=== PATIENT | female | born 1935 | race Hispanic/Latino ===

== ENCOUNTER 2018-03-28 15:53 | Emergency (ER) | payer OTHER ==
[2018-03-28 16:43] LABS: Urine Blood TRACE (NEG); Urine Glucose NEGATIVE (NEG); Urine Protein NEGATIVE (NEG); Urine pH 6.5 (5.0-7.0)
[2018-03-28 16:57] LABS: Absolute Lymphocytes (CBC) 2.4 K/uL (0.7-4.9); Absolute Monocytes 0.8 K/uL (0.1-1.3); Absolute Neutrophil 5.3 K/uL (1.8-8.0); Basophils % 0.7 % (0-1.3); Eosinophils % 2.8 % (0-4.4); Hematocrit 41.4 % (36.0-45.0); Lymphocytes % 27.1 % (15.3-44.8); MCH 27.2 pg (27.0-35.0); MCV 84.1 fL (80-100); MPV 9.3 fL (7.6-11.3); Protime INR 1.03; RBC Red Blood Cell Count 4.92 M/uL (3.86-4.86)
[2018-03-28 17:05] LABS: Albumin 3.5 g/dL (3.4-5.0); Bilirubin Total 0.3 mg/dL (0.2-1.0); Potassium 4.1 mmol/L (3.5-5.1); Protein, Total 7.4 g/dL (6.4-8.2)
[2018-03-28 17:10] LABS: Urine Bacteria <20 /HPF (<20); Urine Culture Reflex Order REFLEXED; Urine RBC <5 /HPF (NONE SEEN)
--- NOTE | 2018-03-28 17:23 | RAD REPORT ---
EXAM DESCRIPTION: CT - Abdomen Pelvis Wo Contrast - 03/28/2018 5:12 pm CLINICAL HISTORY: Abdominal pain, right-sided chest and abdomen pain COMPARISON: CT study February 2017 TECHNIQUE: Axial [address] imaging of the abdomen and pelvis was performed without IV contrast. No IV contrast was given because of allergy, abnormal renal function, patient refusal or physician re quest. No oral contrast given. All CT scans are performed using dose optimization technique as appropriate and may include automated exposure control or mA/KV adjustment according to patient size. FINDINGS: No acute lung parenchymal process seen. No pericardial thickening or effusion. There is no cardiomegaly. The liver, spleen and pancreas show no suspicious findings on non-contrast imaging. Gallbladder is ab sent. No biliary tree dilatation. No hydronephrosis or suspicious renal mass. 10 millimeter and 5 millimeter lower pole calculi seen. N o perinephric stranding. No significant adrenal finding. Isodense renal masses and pyelonephritis can not be excluded in the absence of IV contrast. Mostly contracted urinary bladder shows no suspicious finding. Significant pelvic floor laxity is evident. Moderate hiatal hernia is present similar to prior imaging. Approximately 30% of the stomach is intra thoracic. No acute large or small bowel finding. Diverticulosis is minimal. No free air, free fluid o r inflammatory stranding. No hernia, mass or bulky lymphadenopathy. Disc and bony degenerative changes are present. Moderate right hip degenerative change. Bony changes are similar to the comparison. IMPRESSION: Non-contrast enhanced CT abdomen and pelvis imaging show no acute finding. Nonacute findings detailed in the body of the report similar to February 2017. Full assessment is limited is the absence of IV contrast.
--- NOTE | 2018-03-28 17:31 | ER ---
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 Transition of care: patient was not received from another setting of care. Onset of symptoms was March 28, 2018. Risk Assessment: Do you want to hurt yourself or someone else? Patient reports no desire to harm self or others. Initial Sepsis Screen: Does the patient meet any 2 criteria? No. Patient's initial sepsis screen is negative. Does the patient have a suspected source of infection? No. Patient's initial sepsis screen is negative. Care prior to arrival: None. 15:57 Method Of Arrival: Ambulatory 15:57 Acuity: ERICA 3 hj Triage Assessment: 16:00 General: Appears in no apparent distress. uncomfortable, Behavior is calm, cooperative, hj appropriate for age. Pain: Complains of pain in R rib cage Pain currently is 6 out of 10 on a pain scale. Historical: - Allergies: 15:59 ACETAMINOPHEN; hj 15:59 Lisinopril; hj 15:59 Warfarin; 15:59 Tylenol; hj - Home Meds: 15:59 metoprolol tartrate 25 mg Oral tab 1 tab 2 times per day [Active]; hj - PMHx: 15:59 CHF; Hypertension; hj - PSHx: 15:59 CABG; Hysterectomy; Cholecystectomy; Appendectomy; colon surgery; hj - Immunization history:: Adult Immunizations up to date. - Social history:: Smoking status: Patient/guardian denies using tobacco, Patient/guardian denies using alcohol. - Ebola Screening: : Patient negative for fever greater than or equal to 101.5 degrees Fahrenheit, and additional compatible Ebola Virus Disease symptoms Patient denies exposure to infectious person Patient denies travel to an Ebola-affected area in the 21 days before illness onset. Screenin:00 Abuse screen: Denies threats or abuse. Denies injuries from another. Nutritional hj screening: No deficits noted. Tuberculosis screening: No symptoms or risk factors identified. Fall Risk None identified. Assessment: 16:35 General: Appears uncomfortable, well groomed, well developed, well nourished, Behavior tl3 is calm, cooperative, appropriate for age. Pain: Complains of pain in right mid back and right low back. Neuro: Level of Consciousness is awake, alert, obeys commands, Oriented to person, place, time, situation, Appropriate for age. Cardiovascular: Heart tones S1 S2 present Patient's skin is warm and dry. Respiratory: Airway is patent Respiratory effort is even, unlabored, Respiratory pattern is regular, symmetrical. GI: No signs and/or symptoms were reported involving the gastrointestinal system. : Urine is clear, Reports urinary frequency. EENT: No signs and/or symptoms were reported regarding the EENT system. Derm: No signs and/or symptoms reported regarding the dermatologic system. Musculoskeletal: No signs and/or symptoms reported regarding the musculoskeletal system. 17:48 Reassessment: Patient appears in no apparent distress at this time. No changes from tl3 previously documented assessment. Patient and/or family updated on plan of care and expected duration. Pain level reassessed. Patient is alert, oriented x 3, equal unlabored respirations, skin warm/dry/pink. Vital Signs: 16:01 BP 134 / 122; Pulse 52; Resp 18; Temp 98.7(O); Pulse Ox 97% on R/A; Weight 72.57 kg; hj Height 4 ft. 11 in. (149.86 cm); Pain 6/10; 17:48 BP 168 / 71; Pulse 55; Resp 18; Pulse Ox 98% ; tl3 16:01 Body Mass Index 32.31 (72.57 kg, 149.86 cm) ED Course: 15:56 Patient arrived in ED. mr 15:56 None, None is Private Physician. mr 15:59 Triage completed. hj 16:00 Arm band placed on right wrist. hj 16:00 Patient has correct armband on for positive identification. Placed in gown. Bed in low hj position. Call light in reach. Side rails up X 1. Adult w/ patient. 16:10 Tenzin Loo MD is Attending Physician. ps1 16:13 Madeleine Gill RN is Primary Nurse. tl3 16:35 Initial lab(s) drawn, by me. Missed attempt(s): 20 gauge in right forearm. tl3 16:37 Urine collected: clean catch specimen, clear, Amount Voided: 10mL. tl3 16:[address] vm2 17:10 CT completed. Patient tolerated procedure well. Patient moved back from CT. vm2 17:12 CT Abd/Pelvis - Without Cont In Process Unspecified. EDMS 17:49 No provider procedures requiring assistance completed. Patient did not have IV access tl3 during this emergency room visit. Administered Medications: 16:52 Not Given (no IV): TORadol 30 mg IVP once tl3 Outcome: 17:25 Discharge ordered by MD. ps1 17:49 Discharged to home ambulatory. tl3 17:49 Condition: stable 17:49 Discharge instructions given to patient, family, Instructed on discharge instructions, follow up and referral plans. Demonstrated understanding of instructions, follow-up care, medications. 17:49 Patient left the ED. tl3 Signatures: Dispatcher [employer] EDDC Aniya Buitrago mr Orestes Robles, RN RN Shereen Waldrop 2 Tenzin Loo MD MD ps1 Madeleine Gill RN RN tl3 Corrections: (The following items were deleted from the chart) 16:03 16:01 Pulse 52bpm; Resp 18bpm; Pulse Ox 97% RA; Temp 98.7F Oral; 72.57 kg; Height 4 ft. hj 11 in.; BMI: 32.3; Pain 6/10; hj
--- NOTE | 2018-03-28 17:31 | EDPHYS ---
Physician Documentation [facility] Name: Kassandra Chang Age: 82 yrs Sex: Female : 1935 Arrival Date: 03/28/2018 Time: 15:56 Bed 27 Private MD: None, None ED Physician Tenzin Loo HPI: 03/28 16:18 This 82 yrs old Female presents to ER via Ambulatory with complaints of Flank ps1 pain. 16:18 Onset was this afternoon. She attempted to take a motrin and see if the pain would ps1 remit but it did not and this concerned the patient. She additionally attests to urine symptoms of polyuria. No fever. Is on warfarin. . Historical: - Allergies: 15:59 ACETAMINOPHEN; hj 15:59 Lisinopril; hj 15:59 Warfarin; hj 15:59 Tylenol; hj - Home Meds: 15:59 metoprolol tartrate 25 mg Oral tab 1 tab 2 times per day [Active]; hj - PMHx: 15:59 CHF; Hypertension; hj - PSHx: 15:59 CABG; Hysterectomy; Cholecystectomy; Appendectomy; colon surgery; hj - Immunization history:: Adult Immunizations up to date. - Social history:: Smoking status: Patient/guardian denies using tobacco, Patient/guardian denies using alcohol. - Ebola Screening: : Patient negative for fever greater than or equal to 101.5 degrees Fahrenheit, and additional compatible Ebola Virus Disease symptoms Patient denies exposure to infectious person Patient denies travel to an Ebola-affected area in the 21 days before illness onset. ROS: 16:18 Constitutional: Negative for fever, chills, and weight loss, Eyes: Negative for injury, ps1 pain, redness, and discharge, Cardiovascular: Negative for chest pain, palpitations, and edema, Respiratory: Negative for shortness of breath, cough, wheezing, and pleuritic chest pain, Abdomen/GI: Negative for abdominal pain, nausea, vomiting, diarrhea, and constipation, Back: Negative for injury and pain. 16:18 Neuro: Negative for headache, weakness, numbness, tingling, and seizure, Psych: Negative for depression, anxiety, suicide ideation, homicidal ideation, and hallucinations. 16:18 : Positive for urinary symptoms, flank pain, urinary frequency. Exam: 16:18 Constitutional: This is a well developed, well nourished patient who is awake, alert, ps1 and in no acute distress. Head/Face: Normocephalic, atraumatic. Chest/axilla: Normal chest wall appearance and motion. Nontender with no deformity. No lesions are appreciated. Cardiovascular: Regular rate and rhythm. No gallops, murmurs, or rubs. Normal PMI, no JVD. No pulse deficits. Respiratory: Lungs have equal breath sounds bilaterally, clear to auscultation and percussion. No rales, rhonchi or wheezes noted. No increased work of breathing, no retractions or nasal flaring. Abdomen/GI: Soft, non-tender, with normal bowel sounds. No distension or tympany. No guarding or rebound. No evidence of tenderness throughout. Skin: Warm, dry with normal turgor. Normal color with no rashes, no lesions, and no evidence of cellulitis. MS/ Extremity: Pulses equal, no cyanosis. Neurovascular intact. Full, normal range of motion. Neuro: Awake and alert, GCS 15, oriented to person, place, time, and situation. Cranial nerves II-XII grossly intact. Sensory grossly intact. 16:18 Back: CVA tenderness, that is moderate, is noted on the right. Vital Signs: 16:01 BP 134 / 122; Pulse 52; Resp 18; Temp 98.7(O); Pulse Ox 97% on R/A; Weight 72.57 kg; hj Height 4 ft. 11 in. (149.86 cm); Pain 6/10; 17:48 BP 168 / 71; Pulse 55; Resp 18; Pulse Ox 98% ; tl3 16:01 Body Mass Index 32.31 (72.57 kg, 149.86 cm) MDM: 16:43 Patient medically screened. ps1 17:27 Data reviewed: vital signs, nurses notes, lab test result(s), radiologic studies, CT ps1 scan. Response to treatment: the patient's symptoms have markedly improved after treatment. Special discussion: Based on the patient's Hx, exam, and Dx evaluation, there is no indication for emergent surgery or inpatient Tx. It is understood by the patient/guardian that if the Sx's persist or worsen they need to return immediately for re-evaluation. I discussed with the patient/guardian in detail that at this point there is no indication for admission to the hospital. It is understood, however, that if the symptoms persist or worsen the patient needs to return immediately for re-evaluation. 03/28 16:26 Order name: CBC with Diff; Complete Time: 16:59 ps1 03/28 16:26 Order name: CMP; Complete Time: 17:10 ps1 03/28 16:26 Order name: PT-INR; Complete Time: 16:59 ps1 03/28 16:33 Order name: UA MICROSCOPIC; Complete Time: 17:11 tl3 03/28 16:36 Order name: Urine Dipstick--Ancillary (enter results); Complete Time: 16:45 ag 03/28 17:12 Order name: Urine Culture EDTN 03/28 16:26 Order name: Urine Dipstick-Ancillary (obtain specimen); Complete Time: 16:52 ps1 03/28 16:26 Order name: CT Abd/Pelvis - Without Cont; Complete Time: 17:24 ps1 Administered Medications: 16:52 Not Given (no IV): TORadol 30 mg IVP once tl3 Disposition: 03/28/18 17:25 Discharged to Home. Impression: flank pain, musculoskeletal pain. - Condition is Stable. - Discharge Instructions: Flank Pain. - Medication Reconciliation Form, Thank You Letter, Antibiotic Education, Prescription Opioid Use form. - Follow up: Private Physician; When: As needed; Reason: Recheck today's complaints, Continuance of care, Re-evaluation by your physician. Follow up: Emergency Department; When: As needed; Reason: Fever > 102 F, Trouble breathing, Worsening of condition. - Problem is new. - Symptoms have improved. Signatures: Dispatcher [facility] Orestes Robles RN RN Tenzin Loo MD MD ps1 Madeleine Gill RN RN tl3 Corrections: (The following items were deleted from the chart) 17:49 17:25 03/28/2018 17:25 Discharged to Home. Impression: flank pain; musculoskeletal tl3 pain. Condition is Stable. Forms are Medication Reconciliation Form, Thank You Letter, Antibiotic Education, Prescription Opioid Use. Follow up: Private Physician; When: As needed; Reason: Recheck today's complaints, Continuance of care, Re-evaluation by your physician. Follow up: Emergency Department; When: As needed; Reason: Fever > 102 F, Trouble breathing, Worsening of condition. Problem is new. Symptoms have improved. ps1
== END 2018-03-28 17:49 | disposition home or self-care (01) ==
LOC: ER 15:53
DX: M79.1 Myalgia (principal); I10 Essential (primary) hypertension; Z88.6 Allergy status to analgesic agent; Z88.8 Allergy status to other drugs, medicaments and biological substances; Z95.1 Presence of aortocoronary bypass graft
CPT/HCPCS: 36415; 74176; 80053; 81003; 81015; 85025; 85610; 87086; 87088; 99284

== ENCOUNTER 2019-06-01 14:02 | Emergency (ER) | payer OTHER ==
--- OUTSIDE RECORDS SUMMARY | 2019-06-01 14:03 | XMS REPORT ---
:1935 [facility] Address [address] [place] [address] Dr. Lizama. [address] [place] [id number] Care Team Providers Name Role Phone Unavailable Unavailable Unavailable Problems This patient has no known problems. Allergies, Adverse Reactions, Alerts This patient has no known allergies or adverse reactions. Medications This patient has no known medications.
--- NOTE | 2019-06-01 15:19 | RAD REPORT ---
EXAM DESCRIPTION: CT - Ct Stroke Brain Wo Cont - 06/01/2019 3:10 pm CLINICAL HISTORY: Right arm weakness Headache, CVA symptomology. COMPARISON: CT-STROKE BRAIN W/O CONTRAST dated 01/02/2015 TECHNIQUE: All CT scans are performed using dose optimization technique as appropriate and may inclu de automated exposure control or mA/KV adjustment according to patient size. FINDINGS: No intracranial hemorrhage, hydrocephalus or extra-axial fluid collection.Mild generalized brain atrophy is present with mild periventricular and deep white matter chronic microvascular ische jose roberto changes.No areas of brain edema or evidence of midline shift. The paranasal sinuses and mastoids are clear. The calvarium is intact. IMPRESSION: No acute intracranial abnormality. The findings were discussed with Dr. Guerrier On 06/01/2019 at 3:15 p.m. by telephone.
--- NOTE | 2019-06-01 15:53 | RAD REPORT ---
EXAM DESCRIPTION: MRI - Brain Wo Cont - 06/01/2019 3:36 pm CLINICAL HISTORY: Right arm weakness Headache, CVA symptomology. COMPARISON: Ct Stroke Brain Wo Cont dated 06/01/2019 TECHNIQUE: Multi-sequence, multiplanar MR imaging of the brain was performed without contrast. FINDINGS: No intracranial hemorrhage, hydrocephalus or extra-axial fluid collections.Moderate T2 and FLAIR hyperintensity is seen in the periventricular region. Small area of gliosis is seen in the rig ht occipital pole compatible with old infarct. No edema or shift of midline structures. No findings t o suspect brain mass. DWI is negative for acute CVA. Midline structures are normally formed. Trace mastoid fluid is present, slightly greater on the left IMPRESSION: Negative for acute CVA or other acute intracranial process.
--- NOTE | 2019-06-01 16:08 | RAD REPORT ---
EXAM DESCRIPTION: RAD - Chest Single View - 06/01/2019 4:02 pm CLINICAL HISTORY: Rigth arm weakness Chest pain. COMPARISON: Chest Pa And Lat (2 Views) dated 01/13/2018; Chest Single View dated 02/25/2017; CHEST SING LE VIEW dated 11/03/2014 FINDINGS: Portable technique limits examination quality. The lungs are grossly clear. The heart is upper limit of normal in size. Sternotomy wires present.
[2019-06-01 16:25] LABS: Absolute Lymphocytes (CBC) 1.9 K/uL (0.7-4.9); Basophils % 0.7 % (0-1.3); Hematocrit 44.6 % (36.0-45.0); MPV 8.8 fL (7.6-11.3); RBC Red Blood Cell Count 5.05 M/uL (3.86-4.86)
[2019-06-01 16:26] LABS: Protime INR 1.05
[2019-06-01 16:38] LABS: Potassium 3.9 mmol/L (3.5-5.1)
--- NOTE | 2019-06-01 17:19 | EDPHYS ---
Physician Documentation [facility] Name: Kassandra Chang Age: 83 yrs Sex: Female : 1935 Arrival Date: 06/01/2019 Time: 14:03 Bed 28 Private MD: ED Physician Mike Guerrier HPI: 06/01 15:36 This 83 yrs old Female presents to ER via Wheelchair with complaints of pm1 Weakness Of Arm. 15:36 The patient or guardian complains of weakness, right arm. The complaints affect the pm1 right arm. Context: The problem was sustained at home, resulted from unknown cause. Onset: The symptoms/episode began/occurred this morning, at 09:30. Treatment prior to arrival includes: no previous treatment. Modifying factors: The symptoms are alleviated by nothing. the symptoms are aggravated by nothing. Associated signs and symptoms: The patient has no apparent associated signs or symptoms, Pertinent positives: pain, of the right axilla, Pertinent negatives: decreased range of motion, deformity, fever, numbness, swelling, tingling. Severity of symptoms: in the emergency department the symptoms have improved. The patient has not experienced similar symptoms in the past. Patient with weakness to right arm for 30 minutes starting at 0930 today. Also has pain to right axilla. Weakness to right arm resolved but has continued pain to right axilla. Historical: - Allergies: 14:16 ACETAMINOPHEN; ch 14:16 Lisinopril; ch 14:16 Tylenol; ch 14:16 Warfarin; - Home Meds: 14:16 metoprolol tartrate 25 mg Oral tab 1 tab 2 times per day [Active]; ch - PMHx: 14:16 CHF; Hypertension; Myocardial infarction; ch - PSHx: 14:16 CABG; Hysterectomy; Cholecystectomy; Appendectomy; colon surgery; triple bypass; ch - Immunization history:: Adult Immunizations up to date. - Social history:: Smoking status: Patient/guardian denies using tobacco, Patient/guardian denies using alcohol, street drugs. - Ebola Screening: : Patient negative for fever greater than or equal to 101.5 degrees Fahrenheit, and additional compatible Ebola Virus Disease symptoms Patient denies exposure to infectious person Patient denies travel to an Ebola-affected area in the 21 days before illness onset No symptoms or risks identified at this time. ROS: 15:36 Constitutional: Negative for fever, chills, and weight loss, Eyes: Negative for injury, pm1 pain, redness, and discharge, ENT: Negative for injury, pain, and discharge, Neck: Negative for injury, pain, and swelling, Cardiovascular: Negative for chest pain, palpitations, and edema, Respiratory: Negative for shortness of breath, cough, wheezing, and pleuritic chest pain, Abdomen/GI: Negative for abdominal pain, nausea, vomiting, diarrhea, and constipation, Back: Negative for injury and pain, : Negative for injury, bleeding, discharge, and swelling, Skin: Negative for injury, rash, and discoloration. 15:36 MS/extremity: Positive for pain, of the right axilla, Negative for decreased range of motion, deformity. 15:36 Neuro: Positive for weakness, of the right arm. Exam: 15:36 Constitutional: This is a well developed, well nourished patient who is awake, alert, pm1 and in no acute distress. Head/Face: Normocephalic, atraumatic. Eyes: Pupils equal round and reactive to light, extra-ocular motions intact. Lids and lashes normal. Conjunctiva and sclera are non-icteric and not injected. Cornea within normal limits. Periorbital areas with no swelling, redness, or edema. ENT: Nares patent. No nasal discharge, no septal abnormalities noted. Tympanic membranes are normal and external auditory canals are clear. Oropharynx with no redness, swelling, or masses, exudates, or evidence of obstruction, uvula midline. Mucous membranes moist. Neck: Trachea midline, no thyromegaly or masses palpated, and no cervical lymphadenopathy. Supple, full range of motion without nuchal rigidity, or vertebral point tenderness. No Meningismus. Chest/axilla: Normal chest wall appearance and motion. Nontender with no deformity. No lesions are appreciated. Cardiovascular: Regular rate and rhythm with a normal S1 and S2. No gallops, murmurs, or rubs. Normal PMI, no JVD. No pulse deficits. Respiratory: Lungs have equal breath sounds bilaterally, clear to auscultation and percussion. No rales, rhonchi or wheezes noted. No increased work of breathing, no retractions or nasal flaring. Abdomen/GI: Soft, non-tender, with normal bowel sounds. No distension or tympany. No guarding or rebound. No evidence of tenderness throughout. Back: No spinal tenderness. No costovertebral tenderness. Full range of motion. Skin: Warm, dry with normal turgor. Normal color with no rashes, no lesions, and no evidence of cellulitis. 15:36 Musculoskeletal/extremity: Extremities: grossly normal except: noted in the right axilla: tenderness, ROM: intact in all extremities, Circulation is intact in all extremities. Sensation intact. 15:36 Neuro: Orientation: is normal, Mentation: is normal, Cranial nerves: CN II- XII are normal as tested, Cerebellar function: normal finger to nose testing, Motor: is normal, moves all fours, Sensation: is normal, no obvious gross deficits. Vital Signs: 14:16 BP 166 / 68; Pulse 51; Resp 14; Temp 98.3; Pulse Ox 97% on R/A; Weight 61.23 kg; Height ch 5 ft. 0 in. (152.40 cm); Pain 2/10; 16:12 BP 184 / 66; Pulse 50; Resp 16; Temp 97.9(O); Pulse Ox 99% ; lt1 17:30 BP 177 / 64; Pulse 44; Resp 18; Pulse Ox 98% on R/A; wh 14:16 Body Mass Index 26.37 (61.23 kg, 152.40 cm) MDM: 14:46 Patient medically screened. pm1 17:15 Data reviewed: vital signs. Data interpreted: Pulse oximetry: on room air is 99 %. pm1 Interpretation: normal. Counseling: I had a detailed discussion with the patient and/or guardian regarding: the historical points, exam findings, and any diagnostic results supporting the discharge/admit diagnosis, lab results, radiology results, the need for outpatient follow up, to return to the emergency department if symptoms worsen or persist or if there are any questions or concerns that arise at home. 06/01 14:56 Order name: Basic Metabolic Panel; Complete Time: 16:58 pm1 06/01 14:56 Order name: CBC with Diff; Complete Time: 16:58 pm1 06/01 14:56 Order name: Protime (+inr); Complete Time: 16:58 pm1 06/01 14:56 Order name: Ptt, Activated; Complete Time: 16:58 pm1 06/01 16:06 Order name: Glucose, Ancillary Testing; Complete Time: 16:07 EDMS 06/01 17:09 Order name: Urine Dipstick--Ancillary (enter results) bd 06/01 14:56 Order name: CT Stroke Brain w/o Contrast; Complete Time: 16:00 pm1 06/01 14:56 Order name: Stroke CXR 1 View; Complete Time: 16:17 pm1 06/01 14:56 Order name: EKG; Complete Time: 14:58 pm1 06/01 14:56 Order name: Accucheck; Complete Time: 16:06 pm1 06/01 14:56 Order name: Cardiac monitoring; Complete Time: 15:23 pm1 06/01 14:56 Order name: EKG - Nurse/Tech; Complete Time: 15:23 pm1 06/01 14:56 Order name: IV Saline Lock; Complete Time: 16:06 pm1 06/01 14:56 Order name: MRI - Brain Wo Cont; Complete Time: 16:00 pm1 06/01 14:56 Order name: Labs collected and sent; Complete Time: 16:06 pm1 06/01 14:56 Order name: NPO; Complete Time: 15:24 pm1 06/01 14:56 Order name: O2 Per Protocol; Complete Time: 15:24 pm1 06/01 14:56 Order name: O2 Sat Monitoring; Complete Time: 15:23 pm1 06/01 14:56 Order name: Stroke Swallow Screen; Complete Time: 16:24 pm1 Administered Medications: No medications were administered Point of Care Testing: Blood Glucose: 16:26 Blood Glucose: 105 mg/dL; wh Ranges: Critical Glucose Levels:Adult <50 mg/dl or >400 mg/dl <40 mg/dl or >180 mg/dl Disposition: 18:11 Co-signature as Attending Physician, Mike Guerrier MD. rn Disposition: 06/01/19 17:17 Discharged to Home. Impression: Pain in right arm, Weakness. - Condition is Stable. - Discharge Instructions: Musculoskeletal Pain, Weakness. - Medication Reconciliation Form, Thank You Letter, Antibiotic Education, Prescription Opioid Use form. - Follow up: Emergency Department; When: As needed; Reason: Worsening of condition. Follow up: Private Physician; When: 2 - 3 days; Reason: Recheck today's complaints, Continuance of care, Re-evaluation by your physician. - Problem is new. - Symptoms have improved. Signatures: Dispatcher [employer] EDMS Jazmyne Roach, Mike Fleming RN, ch, MD MD rn Marinas, Patrick, VONNIE MOTORMAN/WOMAN pm1 Celine Warner Corrections: (The following items were deleted from the chart) 17:18 17:17 06/01/2019 17:17 Discharged to Home. Impression: Pain in right arm. Condition is pm1 Stable. Forms are Medication Reconciliation Form, Thank You Letter, Antibiotic Education, Prescription Opioid Use. Follow up: Emergency Department; When: As needed; Reason: Worsening of condition. Follow up: Private Physician; When: 2 - 3 days; Reason: Recheck today's complaints, Continuance of care, Re-evaluation by your physician. Problem is new. Symptoms have improved. pm1 17:38 17:18 06/01/2019 17:17 Discharged to Home. Impression: Pain in right arm; Weakness. Condition is Stable. Forms are Medication Reconciliation Form, Thank You Letter, Antibiotic Education, Prescription Opioid Use. Follow up: Emergency Department; When: As needed; Reason: Worsening of condition. Follow up: Private Physician; When: 2 - 3 days; Reason: Recheck today's complaints, Continuance of care, Re-evaluation by your physician. Problem is new. Symptoms have improved. pm1
--- NOTE | 2019-06-01 17:19 | ER ---
Nurse's Notes [facility] Name: Kassandra Chang Age: 83 yrs Sex: Female : 1935 Arrival Date: 06/01/2019 Time: 14:03 Bed 28 Private MD: Diagnosis: Pain in right arm;Weakness Presentation: 06/01 14:12 Presenting complaint: Child states: vomiting bile Wednesday night, since then not acting ch right. this morning she couldn't hold things with her R hand. since then that is resolved. we called Dr. Yates and he said to come to the ER. pt reports soreness in R axilla and arm. Transition of care: patient was not received from another setting of care. Onset of symptoms was June 01, 2019 at 09:30. Risk Assessment: Do you want to hurt yourself or someone else? Patient reports no desire to harm self or others. Initial Sepsis Screen: Does the patient meet any 2 criteria? No. Patient's initial sepsis screen is negative. Does the patient have a suspected source of infection? No. Patient's initial sepsis screen is negative. Care prior to arrival: None. 14:12 Method Of Arrival: Wheelchair 14:12 Acuity: ERICA 3 ch Historical: - Allergies: 14:16 ACETAMINOPHEN; 14:16 Lisinopril; 14:16 Tylenol; 14:16 Warfarin; - Home Meds: 14:16 metoprolol tartrate 25 mg Oral tab 1 tab 2 times per day [Active]; - PMHx: 14:16 CHF; Hypertension; Myocardial infarction; - PSHx: 14:16 CABG; Hysterectomy; Cholecystectomy; Appendectomy; colon surgery; triple bypass; - Immunization history:: Adult Immunizations up to date. - Social history:: Smoking status: Patient/guardian denies using tobacco, Patient/guardian denies using alcohol, street drugs. - Ebola Screening: : Patient negative for fever greater than or equal to 101.5 degrees Fahrenheit, and additional compatible Ebola Virus Disease symptoms Patient denies exposure to infectious person Patient denies travel to an Ebola-affected area in the 21 days before illness onset No symptoms or risks identified at this time. Screenin:27 Abuse screen: Denies threats or abuse. Denies injuries from another. Nutritional wh screening: No deficits noted. Tuberculosis screening: No symptoms or risk factors identified. Fall Risk None identified. Assessment: 15:30 General: Appears in no apparent distress. comfortable, Behavior is calm, cooperative, wh appropriate for age. Pain: Denies pain. Neuro: Level of Consciousness is awake, alert, obeys commands, Oriented to person, place, time, situation, Appropriate for age [employer] Testing are equal bilaterally Moves all extremities. Full function Reports Weakness on R Arm this morning. Cardiovascular: Heart tones S1 S2. Respiratory: Airway is patent Respiratory effort is even, unlabored, Respiratory pattern is regular, symmetrical. GI: Abdomen is flat, non-distended, Abd is soft and non tender X 4 quads. : No signs and/or symptoms were reported regarding the genitourinary system. EENT: No signs and/or symptoms were reported regarding the EENT system. Derm: Skin is intact, is healthy with good turgor, Skin is pink, warm \T\ dry. normal. Musculoskeletal: Range of motion: intact in all extremities. 16:30 Reassessment: Patient appears in no apparent distress at this time. No changes from previously documented assessment. Patient and/or family updated on plan of care and expected duration. Pain level reassessed. Patient is alert, oriented x 3, equal unlabored respirations, skin warm/dry/pink. Patient denies pain at this time. 17:36 Reassessment: Patient appears in no apparent distress at this time. No changes from previously documented assessment. Patient and/or family updated on plan of care and expected duration. Pain level reassessed. Patient is alert, oriented x 3, equal unlabored respirations, skin warm/dry/pink. Patient denies pain at this time. Vital Signs: 14:16 BP 166 / 68; Pulse 51; Resp 14; Temp 98.3; Pulse Ox 97% on R/A; Weight 61.23 kg; Height 5 ft. 0 in. (152.40 cm); Pain 2/10; 16:12 BP 184 / 66; Pulse 50; Resp 16; Temp 97.9(O); Pulse Ox 99% ; lt1 17:30 BP 177 / 64; Pulse 44; Resp 18; Pulse Ox 98% on R/A; 14:16 Body Mass Index 26.37 (61.23 kg, 152.40 cm) ED Course: 14:03 Patient arrived in ED. as 14:15 Triage completed. 14:16 Arm band placed on left wrist. Patient placed in an exam room, on a stretcher. 14:26 Celine Warner is Primary Nurse. 14:27 Patient has correct armband on for positive identification. Placed in gown. Bed in low wh position. Call light in reach. Side rails up X 1. surveillance system monitor on. Pulse ox on. NIBP on. 14:45 Ranjit Monroy NP is PHCP. pm1 14:45 Mike Guerrier MD is Attending Physician. pm1 15:16 CT Stroke Brain w/o Contrast In Process Unspecified. EDMS 15:30 MRI - Brain Wo Cont In Process Unspecified. EDMS 16:00 Inserted saline lock: 22 gauge in left antecubital area, using aseptic technique. Blood wh collected. 16:03 Stroke CXR 1 View In Process Unspecified. EDMS 16:03 X-ray completed. Patient tolerated procedure well. Patient moved back from radiology. [facility] 17:37 No provider procedures requiring assistance completed. IV discontinued, intact, bleeding controlled, No redness/swelling at site. Administered Medications: No medications were administered Point of Care Testing: Blood Glucose: 16:26 Blood Glucose: 105 mg/dL; Ranges: Outcome: 17:17 Discharge ordered by . 1 17:37 Discharged to home ambulatory, with family. 17:37 Condition: good 17:37 Discharge instructions given to patient, family, Instructed on discharge instructions, follow up and referral plans. POC musculoskeletal Pain and Weakness Demonstrated understanding of instructions, follow-up care, POC 17:38 Patient left the ED. Signatures: Dispatcher [employer] Jazmyne Irvin, RN RN Shauna Turner [facility] Karyn Freedman as Ranjit Monroy NP CERAMIC ENGINEERING PROFESSOR pm1 Celine Warner Tiffanie Mclaughlin lt1
[2019-06-01 18:30] LABS: Urine Blood NEGATIVE (NEG); Urine Glucose NEGATIVE (NEG); Urine Protein NEGATIVE (NEG); Urine Specific Gravity 1.015 (1.005-1.030)
--- NOTE | 2019-06-02 08:25 | EKG ---
Test Date: 2019-06-01 Test Time: 14:29:11 Director Of Entertainment: TOMER MEASUREMENT RESULTS: Intervals: Rate: 52 CT: 160 QRSD: 116 QT: 470 QTc: 437 [place]: P: 7 CT: 160 QRS: 22 T: 15 INTERPRETIVE STATEMENTS: Sinus bradycardia with premature atrial complexes Incomplete right bundle branch block Borderline ECG Compared to ECG 02/25/2017 11:38:06 Atrial premature complex(es) now present Electronically Signed On 06-02-19 08:24:22 CDT by Rodolfo Yates
== END 2019-06-01 17:38 | disposition home or self-care (01) ==
LOC: ER 14:02
DX: R53.1 Weakness (principal); I10 Essential (primary) hypertension; I50.9 Heart failure, unspecified; Z95.1 Presence of aortocoronary bypass graft; Z88.6 Allergy status to analgesic agent; Z88.8 Allergy status to other drugs, medicaments and biological substances
CPT/HCPCS: 36415; 70450; 70551; 71045; 80048; 81003; 82962; 85025; 85610; 85730; 93005; 99284

== ENCOUNTER 2019-09-01 06:48 | Day surgery (SDC) | payer OTHER ==
[2019-08-30 16:24] LABS: Absolute Lymphocytes (CBC) 1.9 K/uL (0.7-4.9); Basophils % 1.1 % (0-1.3); Hematocrit 40.2 % (36.0-45.0); RBC Red Blood Cell Count 4.65 M/uL (3.86-4.86)
[2019-08-30 16:28] LABS: Protime INR 0.99
[2019-08-30 16:31] LABS: Potassium 4.6 mmol/L (3.5-5.1)
--- NOTE | 2019-08-30 17:41 | EKG ---
Test Date: 2019-08-30 Test Time: 15:52:40 Lode Miner: CHRIS MEASUREMENT RESULTS: Intervals: Rate: 54 NM: 170 QRSD: 116 QT: 432 QTc: 409 [place]: P: 51 NM: 170 QRS: 63 T: 50 INTERPRETIVE STATEMENTS: Sinus bradycardia Incomplete right bundle branch block Borderline ECG Compared to ECG 06/01/2019 14:29:11 Atrial premature complex(es) no longer present Electronically Signed On 08-30-19 17:40:50 MANAGER QUALITY COMPLIANCE by Rodolfo Yates
--- OUTSIDE RECORDS SUMMARY | 2019-09-01 06:50 | XMS REPORT ---
:1935 [facility] Address [address] [place] [address] Dr. Bernardo [address] [place] [id number] Care Team Providers Name Role Phone Unavailable Unavailable Unavailable Problems This patient has no known problems. Allergies, Adverse Reactions, Alerts This patient has no known allergies or adverse reactions. Medications This patient has no known medications.
[2019-09-01] MEDS ORDERED: LIDOCAINE 1% MPF 30 ML VIAL ONE ×2 (07:17→07:20)
[2019-09-01] MEDS ORDERED: HEPA 1000U/500MLS 2,000 UNIT/1,000 ML BAG IV ONE (07:17)
[2019-09-01] MEDS ORDERED: FENTANYL CITR 100 MCG/2 ML ONE (07:18)
[2019-09-01] MEDS ORDERED: MIDAZOLAM HCL 2 MG/2 ML INJ ONE ×2 (07:18→08:10)
[2019-09-01] MEDS ORDERED: NA CHLORIDE 0.9% 0 ML ONE (07:19)
[2019-09-01] MEDS ORDERED: ATROPINE SULF 1 MG/10 ML SYR IV ONE (07:19)
[2019-09-01] MEDS ORDERED: NA CHLORIDE 0.9% 500 ML ONE (07:37)
[2019-09-01] MEDS ORDERED: METOPROLOL TARTRATE 5 MG/5 ML INJ IV ONE (08:12)
--- NOTE | 2019-09-01 09:17 | OP ---
Surgeon: Rodolfo Yates MD 83-year-old woman. Procedures: Left heart catheterization with coronary angiography, saphenous vein angiography x2 and left internal mammary angiography. Procedure Findings: The patient has a totally occluded left anterior descending, totally occluded ob tuse marginal, diffusely diseased right coronary artery, a long 70% stenosis. All these occlusions h ave bypass grafts taking care of the distal vessels. There is a saphenous vein graft to the RCA that is widely patent, saphenous vein graft to the OM is widely patent. No stenosis. The left internal mammary artery to the distal LAD that is patent with no stenosis. Normal flow. Left ventriculogram was not done to minimize the amount of contrast given. We used a catheter to enter the left ventricl e and measure left ventricular end-diastolic pressure. It is elevated. She was also tachycardiac wh en we first got here. She is intolerant to statin drugs and is not taking any cholesterol-lowering m edication. Procedure In Detail: The patient was brought to the cardiac offset label rewinder in a fasting state, sedated wit h Versed and fentanyl. Prepared and draped in usual sterile fashion. Right femoral artery was used. The tissues around the right femoral artery were anesthetized with 1% lidocaine. The artery was en tered using an 18-gauge needle, cannulated with a short J-wire, a 4-Gibraltarian sheath was placed and flus hed and we used this for the remainder of the procedure. At the end of the procedure, an angiogram w as done. Adequate anatomy was seen but it was impossible to pass an Angio-Seal device in so the felipa riotomy was closed using manual pressure. We used a JL4 to angiogram the left coronary, a JR4 to ang iogram the right coronary and 2 saphenous vein grafts. We used the left internal mammary catheter to angiogram the left internal mammary artery. Adequate pictures were had of all these vessels. Pigtai l catheter was used to measure pressures in the left ventricle and do a pullback. No LV gram was don e. No aortic root was done in order to minimize contrast exposure for her kidneys. At the end of e procedure, the catheters were removed over a wire. The sheath was removed and the arteriotomy clos ed with manual pressure. No complications. Estimated Blood Loss: 10 cc. Cold Roll Packer Sheet Iron: Amy Piedra. FAWN/REYNA Voice ID: [id number] Report ID: [id number]
--- OUTSIDE RECORDS SUMMARY | 2019-09-01 10:04 | XMS REPORT ---
:1935 [facility] Address [address] [place] [address] Dr. Bernardo [address] [place] [id number] Care Team Providers Name Role Phone Unavailable Unavailable Unavailable Problems This patient has no known problems. Allergies, Adverse Reactions, Alerts This patient has no known allergies or adverse reactions. Medications This patient has no known medications.
[2019-09-01 10:08] VITALS: TEMP 97
[2019-09-01 15:04] VITALS: BP 161/55; O2SAT 99
[2019-09-01 16:03] LABS: Urine Appearance CLEAR; Urine Bilirubin NEGATIVE (NEG); Urine Blood NEGATIVE (NEG); Urine Color YELLOW; Urine Glucose NEGATIVE (NEG); Urine Protein NEGATIVE (NEG); Urine Specific Gravity >=1.030 (1.005-1.030)
[2019-09-01 16:04] LABS: Urine Microscopic Reflex NO UMIC
== END 2019-09-01 15:59 | disposition home or self-care (01) ==
LOC: CCL 06:48 → OR 06:48 → CCL 15:59
PROVIDERS: ATTEND Internal Medicine
DX: I25.10 Atherosclerotic heart disease of native coronary artery without angina pectoris (principal); I25.82 Chronic total occlusion of coronary artery; I10 Essential (primary) hypertension; G47.33 Obstructive sleep apnea (adult) (pediatric); E78.2 Mixed hyperlipidemia; Z95.1 Presence of aortocoronary bypass graft; Z87.891 Personal history of nicotine dependence; Z79.82 Long term (current) use of aspirin; Z88.6 Allergy status to analgesic agent; Z88.8 Allergy status to other drugs, medicaments and biological substances
CPT/HCPCS: 93005; 85025; 80048; 36415; 85610; 85730; 81003; 93459; C1893; J2250 ×2; J3010; J7040; J0583

== ENCOUNTER 2020-05-12 17:34 | Emergency (ER) | payer OTHER ==
[2020-05-12 18:01] LABS: Urine Blood NEGATIVE (NEG); Urine Glucose NEGATIVE (NEG); Urine Protein NEGATIVE (NEG); Urine Specific Gravity 1.015 (1.005-1.030); Urine pH 5.5 (5.0-7.0)
[2020-05-12 18:36] LABS: Absolute Lymphocytes (CBC) 2.1 K/uL (0.7-4.9); Basophils % 0.8 % (0-1.3); Hematocrit 35.1 % (36.0-45.0); Lymphocytes % 30.5 % (15.3-44.8); MPV 8.6 fL (7.6-11.3); RBC Red Blood Cell Count 4.29 M/uL (3.86-4.86)
[2020-05-12] MEDS ORDERED: CEFTRIAXONE/SWI 1gm 1 GM/10 ML SYR ONE (18:38)
[2020-05-12] MEDS ORDERED: KETOROLAC 30 MG/ML INJ ONE (18:38)
[2020-05-12 18:49] LABS: Urine Bacteria >50 /HPF (<20); Urine Culture Reflex Order REFLEXED; Urine RBC NONE SEEN /HPF (NONE SEEN)
[2020-05-12 18:51] LABS: ALT/SGPT 18 U/L (12-78); AST/SGOT 12 U/L (15-37); Albumin 3.5 g/dL (3.4-5.0); Alkaline Phosphatase 83 U/L (45-117); BUN Blood Urea Nitrogen 25 mg/dL (7-18); Bicarbonate 22 mmol/L (21-32); Bilirubin Direct < 0.1 mg/dL (0-0.2); Bilirubin Total 0.3 mg/dL (0.2-1.0); Glucose Level 104 mg/dL (74-106); Lipase 195 U/L (73-393); Potassium 4.3 mmol/L (3.5-5.1); Protein, Total 7.8 g/dL (6.4-8.2); Sodium Level 141 mmol/L (136-145)
--- NOTE | 2020-05-12 19:22 | RAD REPORT ---
EXAM DESCRIPTION: CT - Abdomen Pelvis W Contrast - 05/12/2020 7:10 pm CLINICAL HISTORY: Abdominal pain COMPARISON: 2017 TECHNIQUE: Computed axial tomography of the abdomen pelvis was obtained. 100 cc Isovue-300 was admin istered intravenously. Oral contrast was not requested which limits evaluation of bowel. All CT scans are performed using dose optimization technique as appropriate and may include automated exposure control or mA/KV adjustment according to patient size. FINDINGS: Small to moderate hiatal hernia Left renal calculi without significant change. No hydronephrosis. Mild enhancement of left renal pelv is The liver, spleen, pancreas, adrenal and right kidney appear unremarkable. There is no evidence of diverticulitis. Postsurgical changes involve the colon. Hysterectomy. 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 Nonobstructing left renal calculi.
--- NOTE | 2020-05-12 20:26 | EDPHYS ---
Physician Documentation [facility] Name: Kassandra Chang Age: 84 yrs Sex: Female : 1935 Arrival Date: 05/12/2020 Time: 17:36 Bed 20 Private MD: ED Physician Fuad Ellsworth HPI: 05/12 18:12 This 84 yrs old Female presents to ER via Wheelchair with complaints of L Side ma2 back Pain. 18:12 The patient complains of pain in the left low back and left mid back. Onset: The ma2 symptoms/episode began/occurred gradually, 3 day(s) ago. Associated signs and symptoms: Pertinent negatives: dysuria, fever, urinary frequency, headache, hematuria, nausea. Severity of pain: At its worst the pain was moderate in the emergency department the pain is unchanged. The patient has experienced similar episodes in the past. Historical: - Allergies: 17:43 ACETAMINOPHEN; sv 17:43 Lisinopril; sv 17:43 Tylenol; sv 17:43 Warfarin; sv - PMHx: 17:43 CHF; Hypertension; Myocardial infarction; sv - PSHx: 17:43 CABG; Hysterectomy; Cholecystectomy; Appendectomy; colon surgery; triple bypass; sv - Immunization history:: Adult Immunizations up to date. - Social history:: Smoking status: Patient denies any tobacco usage or history of. Patient/guardian denies using alcohol, street drugs, The patient lives with family. - Family history:: not pertinent. ROS: 18:12 Constitutional: Negative for fever, chills, and weight loss. ma2 18:12 All other systems are negative. Exam: 18:12 Constitutional: This is a well developed, well nourished patient who is awake, alert, ma2 and in no acute distress. Head/Face: Normocephalic, atraumatic. Eyes: Pupils equal round and reactive to light, extra-ocular motions intact. Lids and lashes normal. Conjunctiva and sclera are non-icteric and not injected. Cornea within normal limits. Periorbital areas with no swelling, redness, or edema. ENT: Nares patent. No nasal discharge, no septal abnormalities noted. Tympanic membranes are normal and external auditory canals are clear. Oropharynx with no redness, swelling, or masses, exudates, or evidence of obstruction, uvula midline. Mucous membranes moist. Neck: Trachea midline, no thyromegaly or masses palpated, and no cervical lymphadenopathy. Supple, full range of motion without nuchal rigidity, or vertebral point tenderness. No Meningismus. Chest/axilla: Normal chest wall appearance and motion. Nontender with no deformity. No lesions are appreciated. Cardiovascular: Regular rate and rhythm with a normal S1 and S2. No gallops, murmurs, or rubs. Normal PMI, no JVD. No pulse deficits. Respiratory: Lungs have equal breath sounds bilaterally, clear to auscultation and percussion. No rales, rhonchi or wheezes noted. No increased work of breathing, no retractions or nasal flaring. Abdomen/GI: Soft, mild tender LLQ, with normal bowel sounds. No distension or tympany. No guarding or rebound. No evidence of tenderness throughout. Back: Left CVA tenderness mild,m No spinal tenderness. No right costovertebral tenderness. Full range of motion. MS/ Extremity: Pulses equal, no cyanosis. Neurovascular intact. Full, normal range of motion. Neuro: Awake and alert, GCS 15, oriented to person, place, time, and situation. Cranial nerves II-XII grossly intact. Motor strength 5/5 in all extremities. Sensory grossly intact. Cerebellar exam normal. Normal gait. Vital Signs: 17:44 BP 164 / 61; Pulse 61; Resp 16; Temp 98.7; Pulse Ox 100% ; Weight 77.11 kg; sv 18:10 BP 149 / 68; Pulse 64; Resp 18; Pulse Ox 95% on R/A; Pain 8/10; em 19:00 BP 165 / 69; Pulse 89; Resp 16; Pulse Ox 97% on R/A; Pain 4/10; mt2 20:00 BP 161 / 64; Pulse 87; Resp 16; Pulse Ox 97% on R/A; Pain 8/10; mt2 MDM: 17:55 Patient medically screened. ma2 18:12 Differential diagnosis: nephrolithiasis, pyelonephritis, UTI, diverticulitis, ma2 pancreatitis. 05/12 17:57 Order name: Urine Microscopic Only; Complete Time: 19:01 sv 05/12 17:57 Order name: Urine Dipstick--Ancillary (enter results); Complete Time: 18:05 sv 05/12 18:06 Order name: Basic Metabolic Panel; Complete Time: 19:01 [facility] 05/12 18:06 Order name: CBC with Diff; Complete Time: 19: [facility] 05/12 18:06 Order name: Hepatic Function; Complete Time: 19: [facility] 05/12 18:06 Order name: Lipase; Complete Time: 19: [facility] 05/12 18:06 Order name: IV Saline Lock; Complete Time: 18:25 [facility] 05/12 18:06 Order name: Labs collected and sent; Complete Time: 18:25 [facility] 05/12 18:11 Order name: CT Abd/Pelvis - IV Contrast Only; Complete Time: 20:23 [facility] 05/12 18:50 Order name: Urine Culture EDMS Administered Medications: 18:40 Drug: TORadol 30 mg Route: IVP; Site: right forearm; em 19:00 Follow up: Response: No adverse reaction; Pain is decreased mt2 18:40 Drug: Rocephin 1 grams Route: IV; Rate: calculated rate; Site: right forearm; em 19:00 Follow up: Response: No adverse reaction; Pain is decreased; IV Status: Completed mt2 infusion 20:40 Drug: morphine 2 mg Route: IVP; Site: right hand; mt2 21:17 Follow up: Response: No adverse reaction; Pain is decreased mt2 Disposition: 05/12/20 20:25 Discharged to Home. Impression: Cystitis, unspecified without hematuria - with pyelonephritis. - Condition is Stable. - Discharge Instructions: Pyelonephritis, Adult, [id number]. - Prescriptions for cefdinir 300 mg Oral capsule - take 1 capsule by ORAL route every 12 hours for 10 days; 28 capsule. Diclofenac Sodium 75 mg Oral Tablet Sustained Release - take 1 tablet by ORAL route 2 times per day; 30 tablet. - Medication Reconciliation Form, Thank You Letter, Antibiotic Education, Prescription Opioid Use form. - Follow up: Private Physician; When: Tomorrow; Reason: Continuance of care. Follow up: Regis Clements MD; When: Upon discharge from the Emergency Department; Reason: Recheck today's complaints, Continuance of care, Re-evaluation by your physician. Follow up: Florencia Figueredo MD; When: Upon discharge from the Emergency Department; Reason: Recheck today's complaints, Continuance of care, Re-evaluation by your physician. Follow up: Courtney Tyson DO; When: Upon discharge from the Emergency Department; Reason: Recheck today's complaints, Continuance of care, Re-evaluation by your physician. - Problem is new. - Symptoms have improved. Signatures: Dispatcher [employer] Yudelka Griffith RN RN Escobar Baker RN RN Fuad Ellsworth MD MD [facility] Blayne He MD MD 4 Marsha Ravi RN RN mt2 Corrections: (The following items were deleted from the chart) 20:57 20:25 05/12/2020 20:25 Discharged to Home. Impression: Cystitis, unspecified without tw4 hematuria - with pyelonephritis. Condition is Stable. Discharge Instructions: Pyelonephritis, Adult, [id number]. Prescriptions for cefdinir 300 mg Oral capsule - take 1 capsule by ORAL route every 12 hours for 10 days; 28 capsule, Diclofenac Sodium 75 mg Oral Tablet Sustained Release - take 1 tablet by ORAL route 2 times per day; 30 tablet. and Forms are Medication Reconciliation Form, Thank You Letter, Antibiotic Education, Prescription Opioid Use. Follow up: Private Physician; When: Tomorrow; Reason: Continuance of care. Problem is new. Symptoms have improved. tw4 21:18 20:57 05/12/2020 20:25 Discharged to Home. Impression: Cystitis, unspecified without mt2 hematuria - with pyelonephritis. Condition is Stable. Discharge Instructions: Pyelonephritis, Adult, Lhyz-[id number]. Prescriptions for cefdinir 300 mg Oral capsule - take 1 capsule by ORAL route every 12 hours for 10 days; 28 capsule, Diclofenac Sodium 75 mg Oral Tablet Sustained Release - take 1 tablet by ORAL route 2 times per day; 30 tablet. and Forms are Medication Reconciliation Form, Thank You Letter, Antibiotic Education, Prescription Opioid Use. Follow up: Private Physician; When: Tomorrow; Reason: Continuance of care. Follow up: Regis Clements; When: Upon discharge from the Emergency Department; Reason: Recheck today's complaints, Continuance of care, Re-evaluation by your physician. Follow up: Florencia Figueredo; When: Upon discharge from the Emergency Department; Reason: Recheck today's complaints, Continuance of care, Re-evaluation by your physician. Follow up: Courtney Tyson; When: Upon discharge from the Emergency Department; Reason: Recheck today's complaints, Continuance of care, Re-evaluation by your physician. Problem is new. Symptoms have improved. tw4
--- NOTE | 2020-05-12 20:26 | ER ---
Nurse's Notes [facility] Name: Kassandra Chang Age: 84 yrs Sex: Female : 1935 Arrival Date: 05/12/2020 Time: 17:36 Bed 20 Private MD: Diagnosis: Cystitis, unspecified without hematuria-with pyelonephritis Presentation: 05/12 17:43 Chief complaint: Patient states: left sided back pain started yesterday. Coronavirus sv screen: Client denies travel out of the [place] in the last 14 days. At this time, the client does not indicate any symptoms associated with coronavirus-19. Ebola Screen: No symptoms or risks identified at this time. Risk Assessment: Do you want to hurt yourself or someone else? Patient reports no desire to harm self or others. Onset of symptoms was May 11, 2020. 17:43 Method Of Arrival: Wheelchair sv 17:43 Acuity: ERICA 3 sv 17:44 Initial Sepsis Screen: Does the patient meet any 2 criteria? No. Patient's initial sv sepsis screen is negative. Does the patient have a suspected source of infection? No. Patient's initial sepsis screen is negative. Historical: - Allergies: 17:43 ACETAMINOPHEN; sv 17:43 Lisinopril; sv 17:43 Tylenol; sv 17:43 Warfarin; sv - PMHx: 17:43 CHF; Hypertension; Myocardial infarction; sv - PSHx: 17:43 CABG; Hysterectomy; Cholecystectomy; Appendectomy; colon surgery; triple bypass; sv - Immunization history:: Adult Immunizations up to date. - Social history:: Smoking status: Patient denies any tobacco usage or history of. Patient/guardian denies using alcohol, street drugs, The patient lives with family. - Family history:: not pertinent. Screenin:03 Abuse screen: Denies threats or abuse. Nutritional screening: No deficits noted. em Tuberculosis screening: No symptoms or risk factors identified. Fall Risk None identified. Assessment: 18:10 General: Appears in no apparent distress. comfortable, Behavior is calm, cooperative, em appropriate for age, Denies fever. Pain: Complains of pain in left low back Pain currently is 8 out of 10 on a pain scale. Neuro: Level of Consciousness is awake, alert, obeys commands, Oriented to person, place, time, situation, Appropriate for age. Cardiovascular: Capillary refill < 3 seconds Patient's skin is warm and dry. Respiratory: Airway is patent Respiratory effort is even, unlabored, Respiratory pattern is regular, symmetrical, Denies cough. GI: Patient currently denies nausea, vomiting. : Denies burning with urination. Derm: Skin is intact, is fragile, is thin, Skin is pink, warm \T\ dry. Musculoskeletal: Capillary refill < 3 seconds, Range of motion: intact in all extremities. 19:15 Reassessment: Patient and/or family updated on plan of care and expected duration. Pain mt2 level reassessed. Patient is alert, oriented x 3, equal unlabored respirations, skin warm/dry/pink. General: Appears uncomfortable, Behavior is cooperative. Pain: Complains of pain in back Pain currently is 4 out of 10 on a pain scale. Quality of pain is described as aching. 20:00 Reassessment: Patient and/or family updated on plan of care and expected duration. Pain mt2 level reassessed. Patient is alert, oriented x 3, equal unlabored respirations, skin warm/dry/pink. General: Appears uncomfortable, Behavior is cooperative. Pain: Complains of pain in back Pain currently is 8 out of 10 on a pain scale. Quality of pain is described as aching. 21:16 Reassessment: Patient and/or family updated on plan of care and expected duration. Pain mt2 level reassessed. Patient is alert, oriented x 3, equal unlabored respirations, skin warm/dry/pink. Patient states feeling better. Patient states symptoms have improved. General: Appears comfortable, Behavior is cooperative. Pain: Denies pain. Vital Signs: 17:44 BP 164 / 61; Pulse 61; Resp 16; Temp 98.7; Pulse Ox 100% ; Weight 77.11 kg; sv 18:10 BP 149 / 68; Pulse 64; Resp 18; Pulse Ox 95% on R/A; Pain 8/10; em 19:00 BP 165 / 69; Pulse 89; Resp 16; Pulse Ox 97% on R/A; Pain 4/10; mt2 20:00 BP 161 / 64; Pulse 87; Resp 16; Pulse Ox 97% on R/A; Pain 8/10; mt2 ED Course: 17:36 Patient arrived in ED. ds1 17:43 Triage completed. sv 17:44 Arm band placed on. sv 17:55 Fuad Ellsworth MD is Attending Physician. ma2 18:01 Escobar Baker, RN is Primary Nurse. em 18:03 Patient has correct armband on for positive identification. Bed in low position. Call em light in reach. Adult w/ patient. Pulse ox on. NIBP on. 18:18 Initial lab(s) drawn, by [facility], sent to lab. Inserted saline lock: 20 gauge in right em forearm, using aseptic technique. Blood collected. 19:01 Primary Nurse role handed off by Escobar Baker, RODY mt2 19:01 Marsha Ravi, RODY is Primary Nurse. mt2 19:11 CT Abd/Pelvis - IV Contrast Only In Process Unspecified. EDMS 20:43 No provider procedures requiring assistance completed. mt2 20:57 Regis Clements MD is Referral Physician. tw4 20:57 Florencia Figueredo MD is Referral Physician. tw4 20:57 Courtney Tyson DO is Referral Physician. tw4 21:17 IV discontinued, intact, bleeding controlled, No redness/swelling at site. Pressure mt2 dressing applied. Administered Medications: 18:40 Drug: TORadol 30 mg Route: IVP; Site: right forearm; em 19:00 Follow up: Response: No adverse reaction; Pain is decreased mt2 18:40 Drug: Rocephin 1 grams Route: IV; Rate: calculated rate; Site: right forearm; em 19:00 Follow up: Response: No adverse reaction; Pain is decreased; IV Status: Completed mt2 infusion 20:40 Drug: morphine 2 mg Route: IVP; Site: right hand; mt2 21:17 Follow up: Response: No adverse reaction; Pain is decreased mt2 Outcome: 20:25 Discharge ordered by . tw4 21:17 Discharged to home ambulatory. mt2 21:17 Condition: good 21:17 Discharge instructions given to patient, family, Instructed on discharge instructions, follow up and referral plans. medication usage, Demonstrated understanding of instructions, follow-up care, medications, Prescriptions given X 2. 21:18 Patient left the ED. mt2 Signatures: Dispatcher [employer] Yudelka Griffith RN RN Escobar Baker RN RN Joselin Hines ds1 Fuad Ellsworth MD MD ma2 Blayne He MD MD tw4 Marsha Ravi RN RN mt2 Corrections: (The following items were deleted from the chart) 17:45 17:43 Acuity: ERICA 4 sv sv 18:55 18:40 TORadol 30 mg IVP in right antecubital em em
[2020-05-12] MEDS ORDERED: MORPHINE 2 MG/ML SYR ONE (20:41)
[2020-05-12 21:28] VITALS: TEMP 98.7
[2020-05-12 21:31] VITALS: O2SAT 97
[2020-05-12 21:32] VITALS: BP 161/64
== END 2020-05-12 21:18 | disposition home or self-care (01) ==
LOC: ER 17:34
DX: N30.90 Cystitis, unspecified without hematuria (principal); N12 Tubulo-interstitial nephritis, not specified as acute or chronic; I10 Essential (primary) hypertension; Z95.1 Presence of aortocoronary bypass graft; Z88.6 Allergy status to analgesic agent; Z88.8 Allergy status to other drugs, medicaments and biological substances
CPT/HCPCS: 87088; 85025; 87086; 80048; 36415; 80076; 83690; 74177; Q9967; J2270; J0696; 81003; 81015; 96365; 96375; 99284

== ENCOUNTER 2021-04-19 10:53 | Emergency (ER) | payer OTHER ==
--- OUTSIDE RECORDS SUMMARY | 2021-04-19 10:56 | XMS REPORT | Continuity of Care Document ---
:1935 Author Organization [facility] t Address [address] [place] [address] [address]. [address] [place] [address] Care Team Providers Name Role Phone Unavailable Unavailable Unavailable Problems This patient has no known problems. Allergies, Adverse Reactions, Alerts This patient has no known allergies or adverse reactions. Medications This patient has no known medications. Procedures This patient has no known procedures. Results This patient has no known results.
[2021-04-19 12:28] LABS: Absolute Lymphocytes (CBC) 1.6 K/uL (0.7-4.9); Basophils % 1.1 % (0-1.3); Hematocrit 33.3 % (36.0-45.0); MPV 8.4 fL (7.6-11.3)
[2021-04-19 12:34] LABS: Protime INR 1.01
[2021-04-19 12:49] LABS: ALT/SGPT 17 U/L (12-78); AST/SGOT 8 U/L (15-37); Albumin 3.8 g/dL (3.4-5.0); Alkaline Phosphatase 80 U/L (45-117); BUN Blood Urea Nitrogen 27 mg/dL (7-18); Bicarbonate 25 mmol/L (21-32); Bilirubin Direct 0.1 mg/dL (0-0.2); Bilirubin Total 0.3 mg/dL (0.2-1.0); Glucose Level 123 mg/dL (74-106); Magnesium 2.3 mg/dL (1.8-2.4); NT PRO-BNP 326 pg/mL (<450); Potassium 4.6 mmol/L (3.5-5.1); Protein, Total 8.3 g/dL (6.4-8.2); Sodium Level 139 mmol/L (136-145); Troponin (Emerg Dept Use Only) < 0.02 ng/mL (0.0-0.045)
--- NOTE | 2021-04-19 12:51 | RAD REPORT ---
EXAM DESCRIPTION: CT - Head Brain Wo Cont - 04/19/2021 12:44 pm CLINICAL HISTORY: Numbness COMPARISON: 2019 TECHNIQUE: Computed axial tomography of the head was obtained. IV contrast was not requested. All CT scans are performed using dose optimization technique as appropriate and may include automated exposure control or mA/KV adjustment according to patient size. FINDINGS: An intracranial bleed is not seen . The ventricles are normal in caliber. No extra-axial fluid collection is noted. Mild to moderate low-density areas within periventricular, deep and subcortical white matter likely r epresent ischemic changes secondary to small vessel disease. Fluid within the sinuses/ mastoids is not seen. IMPRESSION: No acute intracranial abnormality is seen. If patient's symptoms persist MRI of the bra in would be recommended.
--- NOTE | 2021-04-19 13:47 | RAD REPORT ---
EXAM DESCRIPTION: RAD - Foot Right 3 View - 04/19/2021 1:12 pm CLINICAL HISTORY: Right foot pain FINDINGS: No fracture or dislocation is seen Moderate plantar calcaneal spur. Bones appear osteoporotic
--- NOTE | 2021-04-19 14:23 | RAD REPORT ---
EXAM DESCRIPTION: CT - Chest For Pe Angio - 04/19/2021 2:06 pm CLINICAL HISTORY: Shortness of breath COMPARISON: None. TECHNIQUE: Dynamically enhanced axial 3 mm thick images of the chest were obtained during administra tion of <100> mL Isovue 370 IV contrast. Coronal and oblique reconstruction images were generated and reviewed. Exam utilizes a protocol for optimal evaluation of pulmonary arterial tree. Maximum intensity projections 3D imaging was utilized All CT scans are performed using dose optimization technique as appropriate and may include automated exposure control or mA/KV adjustment according to patient size. FINDINGS: A pulmonary embolus is not seen. A thoracic aortic aneurysm is not noted. A pleural effusion is not seen. A pericardial effusion is not seen. A lung consolidation is not present. Moderate hiatal hernia IMPRESSION: Negative for a pulmonary embolism.
--- NOTE | 2021-04-19 14:23 | RAD REPORT ---
EXAM DESCRIPTION: Clint Single View04/19/2021 1:12 pm CLINICAL HISTORY: Chest pain COMPARISON: 2019 FINDINGS: The lungs appear clear of acute infiltrate. The heart is borderline enlarged. Moderate hi atal hernia. Postsurgical changes involve the chest IMPRESSION: No acute abnormalities displayed
[2021-04-19 14:42] LABS: Urine Blood Negative (Negative); Urine Glucose Negative (Negative); Urine Protein Negative (Negative); Urine pH 5.5 (5.0-7.0)
--- NOTE | 2021-04-19 15:00 | ER ---
Nurse's Notes [facility] Name: Kassandra Chang Age: 85 yrs Sex: Female : 1935 Arrival Date: 04/19/2021 Time: 10:54 Bed 18 Private MD: Diagnosis: Calcaneal spur, right foot;Dyspnea, unspecified;Paresthesias Presentation: 04/19 11:49 Chief complaint: Patient states: woke up with right heel pain and pain in right hand , iw cannot bear weight on right foot. Initial Sepsis Screen: Does the patient meet any 2 criteria? No. Patient's initial sepsis screen is negative. Does the patient have a suspected source of infection? No. Patient's initial sepsis screen is negative. Risk Assessment: Do you want to hurt yourself or someone else? Patient reports no desire to harm self or others. 11:49 Method Of Arrival: Wheelchair iw 11:49 Acuity: ERICA 3 iw 12:28 Coronavirus screen: At this time, the client does not indicate any symptoms associated ap3 with coronavirus-19. Ebola Screen: No symptoms or risks identified at this time. 12:29 Onset of symptoms was February 2020. ap3 Historical: - Allergies: 12:30 ACETAMINOPHEN; ap3 12:30 Lisinopril; ap3 12:30 Tylenol; ap3 12:30 Warfarin; ap3 - PMHx: 12:30 CHF; Hypertension; Myocardial infarction; ap3 - Immunization history:: Adult Immunizations up to date, Client reports receiving the 1st dose of the Covid vaccine, J\T\J. - Social history:: Smoking status: Patient denies any tobacco usage or history of. Screenin:27 Abuse screen: Denies threats or abuse. Nutritional screening: No deficits noted. ap3 Tuberculosis screening: No symptoms or risk factors identified. Fall Risk No fall in past 12 months (0 pts). Secondary diagnosis (15 points) impaired mobility, IV access (20 points). Ambulatory Aid- None/Bed Rest/Nurse Assist (0 pts). Gait- Weak (10 pts.). Mental Status- Oriented to own ability (0 pts). Total George Fall Scale indicates High Risk Score (45 or more points). Fall prevention measures have been instituted. Side Rails Up X 2 Placed Close to Nursing Station Frequent Obs/Assessments Occuring As available patient and family educated on Fall Prevention Program and Strategies. Assessment: 12:26 General: Appears in no apparent distress. comfortable, Behavior is calm, cooperative, ap3 appropriate for age. Pain: Complains of pain in heel of right foot Pain does not radiate. Pain began gradually, weeks ago Alleviated by rest, Aggravated by weight bearing. Neuro: Level of Consciousness is awake, alert, obeys commands, Oriented to person, place, time, situation, Appropriate for age. Cardiovascular: Denies chest pain, Capillary refill < 3 seconds Patient's skin is warm and dry. Respiratory: Airway is patent Respiratory effort is even, unlabored, Respiratory pattern is regular, symmetrical. GI: No signs and/or symptoms were reported involving the gastrointestinal system. : No signs and/or symptoms were reported regarding the genitourinary system. EENT: No signs and/or symptoms were reported regarding the EENT system. Derm: No signs and/or symptoms reported regarding the dermatologic system. Musculoskeletal: Reports numbness in right little finger, right ring finger, right middle finger and right index finger since a few weeks ago. Vital Signs: 12:28 Pulse 53; Resp 18; Pulse Ox 100% on R/A; Pain 2/10; ap3 12:56 BP 131 / 59; Pulse 62; Resp 19; Pulse Ox 100% on R/A; ap3 14:35 BP 158 / 64; Pulse 67; Resp 17; Pulse Ox 96% on R/A; ap3 ED Course: 10:54 Patient arrived in ED. ds1 11:47 Tommie Malin PA is PHCP. jmm 11:47 Ilia Brooks MD is Attending Physician. jmm 11:50 Triage completed. iw 11:56 Natasha Cerda, RODY is Primary Nurse. ap3 12:27 Arm band placed on right wrist. ap3 12:28 Inserted saline lock: 22 gauge in left antecubital area, using aseptic technique. Blood ap3 collected. 12:29 Patient has correct armband on for positive identification. Bed in low position. Call ap3 light in reach. Side rails up X2. Adult w/ patient. manager monitoring on. Pulse ox on. NIBP on. Door closed. Noise minimized. Warm blanket given. 12:40 EKG done, by ED staff, reviewed by Ilia Brooks MD. [facility] 12:44 CT Head Brain wo Cont In Process Unspecified. EDMS 13:11 XRAY Chest (1 view) In Process Unspecified. EDMS 13:11 Foot Right 3 View XRAY In Process Unspecified. EDMS 14:06 CT Chest For PE Angio In Process Unspecified. EDMS 14:59 Sawyer Morris MD is Referral Physician. [facility] 15:01 Etienne Paula DPM is Referral Physician. [facility] 15:44 No provider procedures requiring assistance completed. IV discontinued, intact, ap3 bleeding controlled, No redness/swelling at site. Pressure dressing applied. Administered Medications: No medications were administered Outcome: 15:00 Discharge ordered by MD. [facility] 15:44 Discharged to home via wheelchair, with family. ap3 15:44 Condition: good 15:44 Discharge instructions given to patient, Instructed on discharge instructions, follow up and referral plans. medication usage, Demonstrated understanding of instructions, follow-up care, medications, Prescriptions given X 1. 15:45 Patient left the ED. ap3 Signatures: Dispatcher [employer] EDNH Tommie Malin PA PA Joselin Lee ds1 Maria Teresa Smith, RN RN Aniya Torres [facility] Natasha Cerda RN RN ap3
--- NOTE | 2021-04-19 15:00 | EDPHYS ---
Physician Documentation [facility] Name: Kassandra Chang Age: 85 yrs Sex: Female : 1935 Arrival Date: 04/19/2021 Time: 10:54 Bed 18 Private MD: ED Physician Ilia Brooks HPI: 04/19 12:18 This 85 yrs old Female presents to ER via Wheelchair with complaints of R Hand jmm Numbness, Hand \T\ Foot Pain. 12:18 The patient presents with pain. Onset: The symptoms/episode began/occurred this [facility] morning, at 03:00. Modifying factors: The symptoms are alleviated by remaining still, the symptoms are aggravated by weight bearing. Is an 85-year-old female that presents to the ED with multiple complaints. Patient's main complaint is that she has right heel pain which began this morning around 3 AM which woke her from her sleep. Denies trauma, denies fever. Patient also has a complaint of tingling to her right hand denies numbness or tingling to the rest of her right arm, denies unilateral weakness, denies difficulty with speech. Patient also complains of multiple weeks of dyspnea on exertion, denies fever, denies cough.. Historical: - Allergies: 12:30 ACETAMINOPHEN; ap3 12:30 Lisinopril; ap3 12:30 Tylenol; ap3 12:30 Warfarin; ap3 - PMHx: 12:30 CHF; Hypertension; Myocardial infarction; ap3 - Immunization history:: Adult Immunizations up to date, Client reports receiving the 1st dose of the Covid vaccine, J\T\J. - Social history:: Smoking status: Patient denies any tobacco usage or history of. ROS: 12:18 Constitutional: Negative for fever, chills, and weight loss, Cardiovascular: Negative jm for chest pain, palpitations, and edema. 12:18 Respiratory: Positive for shortness of breath. 12:18 MS/extremity: Positive for paresthesias. 12:18 All other systems are negative. Exam: 12:18 Constitutional: This is a well developed, well nourished patient who is awake, alert, jmm and in no acute distress. Head/Face: atraumatic. Eyes: EOMI, no conjunctival erythema appreciated ENT: Moist Mucus Membranes Neck: Trachea midline, Supple Chest/axilla: Normal chest wall appearance and motion. Cardiovascular: Regular rate and rhythm. No edema appreciated Respiratory: Normal respirations, no respiratory distress appreciated Abdomen/GI: Non distended, soft Back: Normal ROM Skin: General appearance color normal 12:18 Musculoskeletal/extremity: ROM: intact in all extremities, Right heel is tender to palpation, compartments are soft for dorsalis pulses appreciated, neurovascular intact. 12:18 Neuro: Orientation: is normal, Mentation: is normal, Memory: is normal, Cerebellar function: normal finger to nose testing, heel to pa testing is normal. 12:18 Psych: Behavior/mood is pleasant, cooperative. Vital Signs: 12:28 Pulse 53; Resp 18; Pulse Ox 100% on R/A; Pain 2/10; ap3 12:56 BP 131 / 59; Pulse 62; Resp 19; Pulse Ox 100% on R/A; ap3 14:35 BP 158 / 64; Pulse 67; Resp 17; Pulse Ox 96% on R/A; ap3 MDM: 11:52 Patient medically screened. jung 14:55 Data reviewed: vital signs, nurses notes. Counseling: I had a detailed discussion with [facility] the patient and/or guardian regarding: the historical points, exam findings, and any diagnostic results supporting the discharge/admit diagnosis, lab results, radiology results, the need for outpatient follow up, to return to the emergency department if symptoms worsen or persist or if there are any questions or concerns that arise at home. ED course: CT brain negative. CT of the chest does not reveal any acute process, no pulmonary embolism is appreciated.. 14:58 ED course: Patient was advised to follow-up with neurology for further evaluation of [facility] right hand paresthesias. Patient given podiatry information for follow-up for the right calcaneal spur. Patient and family otherwise given strict return precautions. Patient understood and agrees with plan of care.. 04/19 12:05 Order name: Basic Metabolic Panel; Complete Time: 12:55 [facility] 04/19 12:05 Order name: CBC with Diff; Complete Time: 12:33 [facility] 04/19 12:05 Order name: LFT's; Complete Time: 12:55 [facility] 04/19 12:05 Order name: Magnesium; Complete Time: 12:55 [facility] 04/19 12:05 Order name: NT PRO-BNP; Complete Time: 12:55 [facility] 04/19 12:05 Order name: PT-INR; Complete Time: 12:43 [facility] 04/19 12:05 Order name: Troponin (emerg Dept Use Only); Complete Time: 12:55 [facility] 04/19 12:05 Order name: XRAY Chest (1 view); Complete Time: 14:27 [facility] 04/19 12:05 Order name: Foot Right 3 View XRAY; Complete Time: 13:51 [facility] 04/19 12:55 Order name: D-Dimer [facility] 04/19 12:55 Order name: D-Dimer; Complete Time: 13:29 [facility] 04/19 14:07 Order name: SARS-COV-2 RT PCR; Complete Time: 14:10 [facility] 04/19 14:42 Order name: Urine Dipstick-Ancillary; Complete Time: 14:47 [facility] 04/19 12:05 Order name: IV Saline Lock; Complete Time: 12:25 [facility] 04/19 12:05 Order name: Labs collected and sent; Complete Time: 12:25 [facility] 04/19 12:05 Order name: O2 Per Protocol; Complete Time: 12:25 [facility] 04/19 12:05 Order name: O2 Sat Monitoring; Complete Time: 12:25 [facility] 04/19 12:14 Order name: CT Head Brain wo Cont; Complete Time: 12:55 [facility] 04/19 13:15 Order name: CT Chest For PE Angio; Complete Time: 14:27 jm Administered Medications: No medications were administered Disposition: 04/20 06:58 Co-signature as Attending Physician, Ilia Brooks MD I agree with the assessment and jung plan of care. Disposition Summary: 04/19/21 15:00 Discharge Ordered Location: Home jmm Condition: Stable jmm Diagnosis - Calcaneal spur, right foot jmm - Dyspnea, unspecified jmm - Paresthesias jmm Followup: jmm - With: Sawyer Morris MD - When: 2 - 3 days - Reason: Recheck today's complaints, Continuance of care, Re-evaluation by your physician Followup: jmm - With: Etienne Paula DPM - When: 2 - 3 days - Reason: Recheck today's complaints, Continuance of care, Re-evaluation by your physician Discharge Instructions: - Discharge Summary Sheet jmm - Paresthesia jmm - Shortness of Breath, Adult jmm Forms: - Medication Reconciliation Form jmm - Thank You Letter jmm - Antibiotic Education jmm - Prescription Opioid Use jm Prescriptions: - orphenadrine citrate 100 mg Oral Tablet Sustained Release - take 1 tablet by ORAL route 2 times per day As needed; 20 tablet; Refills: 0, jmm Product Selection Permitted Signatures: Dispatcher [employer] EDMS Ilia Brooks MD MD cha Mickail, Joel, PA PA jmm Prokisch, Amanda RN RN ap3 Corrections: (The following items were deleted from the chart) 04/19 13:15 12:35 CORONAVIRUS+MR.LAB.BRZ ordered. [facility] EDMS
[2021-04-19 15:57] VITALS: BP 158/64; O2SAT 96
== END 2021-04-19 15:45 | disposition home or self-care (01) ==
LOC: ER 10:53
DX: M77.31 Calcaneal spur, right foot (principal); R06.00 Dyspnea, unspecified; R20.2 Paresthesia of skin; I10 Essential (primary) hypertension; Z20.822 Contact with and (suspected) exposure to COVID-19; Z88.6 Allergy status to analgesic agent; Z88.8 Allergy status to other drugs, medicaments and biological substances
CPT/HCPCS: 85025; 80048; 36415; 83735; 85610; 85379; 80076; 81003; 84484; 83880; 70450; 71275; 71045; 73630; 99284; U0003; Q9967

== ENCOUNTER 2023-10-10 23:43 | Observation (INO) | payer OTHER ==
--- OUTSIDE RECORDS SUMMARY | 2023-10-10 23:47 | XMS REPORT | Continuity of Care Document ---
Author Name Unknown Address [address] [facility] [address] [place] [address] [facility] thconnect Address [address] [facility] [address] [place] [address] Care Team Providers Care Investigation Officer Name Role Phone PCP, UNKNOWN Primary Care Physician Unavailab daniel SARKAR_ Attending Clinician Unavail able Facundo, Andreina Attending Clinician Unavailable Jun_Adalgisa Attending Clinician Unavailable ASHLEY CAO Attending Clinician Unavaila junior SARKAR_ Admitting Clinician Unavail able Facundo, Andreina Admitting Clinician Unavailable Jun_Adalgisa Admitting Clinician Unavailable Payers Payer Name Policy Type Policy Number Effective Date Expirati on Date Source [place]IC[place]: Veeip [id number] 2001 00:00:00 MEDICARE PART A \\T\\ B [id number] 2001 00:00:00 Allergies, Adverse Reactions, Alerts Allergy Name Allergy Type Status Severity Reaction(s) Onset Date Inactive Date Treating Clinician Comments Source No Known Drug Allergie s DA Active U 02-05 00:00: 00 [facility] acetamin ophen DA Active MO Rash 02-05 00:00: 00 [facility] CIPROFLO XACIN DRUG INGREDI Active High Other-Cmnt 03-04 00:00: 00 [facility] SIMVASTA TIN DRUG INGREDI Active High Unknown-Cmnt 03-04 00:00: 00 [facility] LISINOPR IL DRUG INGREDI Active ITCHING 05-20 00:00: 00 [facility] ACETAMIN OPHEN DRUG INGREDI Active Rash 05-20 00:00: 00 [facility] WARFARIN DRUG INGREDI Active Swelling 05-20 00:00: 00 [facility] Encounters Start Date/Time End Date/Time Encounter Type Admission Type Attending Clinicians Care Facility Care Department Encounter ID Source 2023-05-03 00:00:00 2023-05-03 00:00:00 Outpatient GABBY_DO AGUDELO__ [facility] [place] [id number] [facility] 2023-02-05 20:07:00 2023-02-07 14:20:00 [facility] [id number] [facility] 2023-02-05 20:07:00 2023-02-07 14:20:00 Inpatient Emergency Facundo, [facility] Medical Service [id number] 88 [facility] 2020-10-30 02:23:00 2020-10-30 02:23:00 Outpatient Ramireddy_S VFP [id number] 2020-03-18 11:30:00 2020-03-18 11:30:00 Outpatient ASHLEY [facility] [id number] [facility] 2020-03-18 11:30:00 2020-03-18 11:30:00 Outpatient ASHLEY [facility] [id number] [facility] Results Test Description Test Time Test Comments Results Result Co mments Source Iron and Iron Bind Cap [id number] 06:00:00* Test Item Value Reference Range Interpretation Comme nts Iron (test code = FE) 76 ug/mL 50-170 N Total Iron Binding Capacity (test code = TIBC) 259 mcg/dL 250-425 N Iron Saturation (test code = FESAT) 29 % [id number] 06:00:00* Test Item Value Reference Range Interpretation Comme nts Ferritin (test code = DAVIN) 19.8 ng/mL 10.5-307.3 N Vitamin D 25 [id number] 06:00:00* Test Item Value Reference Range Interpretation Comme nts Vitamin D 25 Hydroxy (test c ode = VITD) 43 ng/mL PTH,Parathyroid Hormone [id number] 06:00:00* Test Item Value Reference Range Interpretation Comme nts PTH,Parathyroid Hormone Inta ct (test code = PTHIN) 58.6 pg/mL 18.5-88 N Protein/Creatinine Ratio,[id number] 01:13:00* Test Item Value Reference Range Interpretation Comme nts Total Protein,Urine Random ( test code = TPU) < 6.0 mg/dL 1.0-14.0 N Creatinine,Urine Random (rita t code = CREU) 18.4 mg/dL 10.0-300.0 N Protein/Creatinine Ratio,Uri ne (test code = PROUCRE) 0.30 Ratio UC, Urine [id number] 01:13:00* Test Item Value Reference Range Interpretation Comme nts UC, Urine Culture (test code = UC) NO GROWTH AFTER 24 HOURS UC, Urine Culture (test code = UC) NO GROWTH AFTER 48 HOURS Blood [id number] 05:44:00* Test Item Value Reference Range Interpretation Comme nts Blood Culture (test code = BC) NO GROWTH AFTER 5 DAYS Complete Blood Count Auto [id number] 05:41:00* Test Item Value Reference Range Interpretation Comme nts White Blood Count (test code = WBCT) 8.9 x10 3/uL 4.4-10.5 N Red Blood Count (test code = RBC) 3.93 x10 6/uL 3.75-5.20 N Hemoglobin (test code = HGBT) 10.7 g/dL 12.2-14.8 L Hematocrit (test code = HCTT) 33.1 % 36.5-44.4 L Mean Corpuscular Volume (rita t code = MCV) 84.20 fL 80.00-100.00 N Mean Corpuscular Hemoglobin (test code = MCH) 27.2 pg 27.0-32.5 N Mean Corpuscular HGB Conc (t est code = MCHC) 32.30 g/dL 32.00-37.50 N RDW Coefficient of Variation (test code = RDWCV) 16.2 % 11.5-14.5 H Platelet Count (test code = PLTT) 284 x10 3/uL 140.0-440.0 N Mean Platelet Volume (test c ode = MPV) 10.5 fL Immature Granulocytes % (Aut o) (test code = IMMGRAN%) 0.3 % 0.0-5.0 N Neutrophils % (Auto) (test c ode = NE%) 61.7 % 36.0-70.0 N Lymphocytes % (Auto) (test c ode = LY%) 26.1 % 12.0-44.0 N Monocytes % (Auto) (test cod e = MO%) 9.4 % 0.0-11.0 N Eosinophils % (Auto) (test c ode = EO%) 2.0 % 0.0-7.0 N Basophils % (Auto) (test cod e = BA%) 0.5 % 0.0-2.0 N Immature Granulocytes # (Aut o) (test code = IMMGRAN#) 0.03 x10 3/uL Neutrophils # (Auto) (test c ode = NE#) 5.5 x10 3/uL 1.6-7.4 N Lymphocytes # (Auto) (test c ode = LY#) 2.31 x10 3/uL 0.50-4.60 N Monocytes # (Auto) (test cod e = MO#) 0.83 x10 3/uL 0.00-1.20 N Eosinophils # (Auto) (test c ode = EO#) 0.18 x10 3/uL 0.00-0.74 N Basophils # (Auto) (test cod e = BA#) 0.04 x10 3/uL 0.00-0.21 N nRBC Abs (test code = NRBCA) 0 nRBC Pct (test code = NRBCP) 0 % Comprehensive Metabolic [id number] 05:41:00* Test Item Value Reference Range Interpretation Comme nts SODIUM (test code = NA) 138.0 mmol/L 136.0-145.0 N Potassium,K (test code = K) 4.6 mmol/L 3.0-5.1 N Chloride (test code = CL) 108 mmol/L 98-107 H Carbon Dioxide (test code = CO2) 18 mmol/L 20-31 L Anion Gap (test code = GAP) 12 mmol/L 5-15 N Blood Urea Nitrogen (test code = BUN) 29 mg/dL 9-23 H Creatinine (test code = CREATT) 1.74 mg/dL 0.55-1.02 H Estimated Glomerular Filt Rate (test code = EGFR.XX) 28 See_Comment L Reported eGFR is based on the CKD-EPI 2021 equation thatdoes not use a race coefficient. Additional information canbe found at:99-25-1892_naz_ egfr_summary_flyer 5.pdf (kidney.org) [Automated message] The system which generated this result transmitted reference range: >=90 ml/min/1.73m2. The reference range was not used to interpret this result as normal/abnormal. BUN/Creatinine Ratio (test code = BCRATIO) 17 ratio 10-20 N Glucose (test code = GLU) 101 mg/dL 74-106 N Osmolality,Calculated (test code = OSMOC) 291.3 Calcium (test code = CA) 8.7 mg/dL 8.3-10.6 N Bilirubin,Total (test code = BILIT) 0.3 mg/dL 0.2-1.1 N Aspartate Amino Transferase (test code = AST) 11 U/L 0-34 N Alanine Aminotransferase (test code = ALT) 11 U/L 10-49 N Total Protein (test code = TP) 6.7 g/dL 5.7-8.2 N Albumin Level (test code = ALB) 3.9 g/dL 3.2-4.8 N Globulin (test code = GLOB) 2.8 mg/dL 2.3-3.5 N Albumin/Globulin Ratio (test code = AGRATIO) 1.4 ratio 0.8-2.0 N Alkaline Phosphatase (test code = ALP) 62 U/L 46-116 N [id number] 05:41:00* Test Item Value Reference Range Interpretation Comme nts Phosphorous (test code = PHOS) 2.7 mg/dL 2.4-5.9 N [id number] 05:41:00* Test Item Value Reference Range Interpretation Comme nts Magnesium (test code = MG) 2.0 mg/dL 1.6-2.6 N Blood [id number] 05:39:00* Test Item Value Reference Range Interpretation Comme nts Blood Culture (test code = BC) NO GROWTH AFTER 5 DAYS Troponin I High [id number] 16:40:00* Test Item Value Reference Range Interpretation Comme nts Troponin I High Sensitivity (test code = TROPHS) 9 ng/L 0-45 N Prothrombin Time [id number] 16:40:00* Test Item Value Reference Range Interpretation Comme nts Prothrombin Time (test code = PT) 10.3 Seconds 9.3-12.1 N INR (test code = INR) 1.0 ratio 0.9-1.2 N Reference Interv al is for non-anticoagulated patients.Suggested INR Therapeutic Range for Vitamin K antogonisttherapy:LEV ELS OFTHERAPY INDICATIONS TARGET INR RANGEStandard Dose Venous Thrombosis, 2.0 - 3.0 Atrial Fibrillation, Pulmonary Embolism.High Dose Valvular Heart Disease, 2.5 - 3.5 Mechanical Heart, Intracardiac Thrombosis. Comment: Initial Specimen Did Not Have Enough VolumeComplete Blood Count Auto [id number] 16:40:00* Test Item Value Reference Range Interpretation Comme nts White Blood Count (test code = WBCT) 9.8 x10 3/uL 4.4-10.5 N Red Blood Count (test code = RBC) 4.27 x10 6/uL 3.75-5.20 N Hemoglobin (test code = HGBT) 11.5 g/dL 12.2-14.8 L Hematocrit (test code = HCTT) 36.4 % 36.5-44.4 L Mean Corpuscular Volume (rita t code = MCV) 85.20 fL 80.00-100.00 N Mean Corpuscular Hemoglobin (test code = MCH) 26.9 pg 27.0-32.5 L Mean Corpuscular HGB Conc (t est code = MCHC) 31.60 g/dL 32.00-37.50 L RDW Coefficient of Variation (test code = RDWCV) 16.3 % 11.5-14.5 H Platelet Count (test code = PLTT) 314 x10 3/uL 140.0-440.0 N Mean Platelet Volume (test c ode = MPV) 10.8 fL Immature Granulocytes % (Aut o) (test code = IMMGRAN%) 0.3 % 0.0-5.0 N Neutrophils % (Auto) (test c ode = NE%) 68.4 % 36.0-70.0 N Lymphocytes % (Auto) (test c ode = LY%) 22.8 % 12.0-44.0 N Monocytes % (Auto) (test cod e = MO%) 6.5 % 0.0-11.0 N Eosinophils % (Auto) (test c ode = EO%) 1.6 % 0.0-7.0 N Basophils % (Auto) (test cod e = BA%) 0.4 % 0.0-2.0 N Immature Granulocytes # (Aut o) (test code = IMMGRAN#) 0.03 x10 3/uL Neutrophils # (Auto) (test c ode = NE#) 6.7 x10 3/uL 1.6-7.4 N Lymphocytes # (Auto) (test c ode = LY#) 2.23 x10 3/uL 0.50-4.60 N Monocytes # (Auto) (test cod e = MO#) 0.64 x10 3/uL 0.00-1.20 N Eosinophils # (Auto) (test c ode = EO#) 0.16 x10 3/uL 0.00-0.74 N Basophils # (Auto) (test cod e = BA#) 0.04 x10 3/uL 0.00-0.21 N nRBC Abs (test code = NRBCA) 0 nRBC Pct (test code = NRBCP) 0 % Comment: Initial Specimen ClottedUA, Urinalysis Rflx Cult/[id number] 16:00:00* Test Item Value Reference Range Interpretation Comme nts Color,Urine (test code = UCOL) Yellow Yellow Clarity,Urine (test code = UCLAR) Cloudy Clear A Ph, Urine (test code = UPH) 5.5 5.0-9.0 N Specific [place],Urine (test code = USG) 1.015 1.005-1.030 N Blood,Urine (test code = UBLD) Negative mg/dL Negative Protein,Urine (test code = UPRO) Negative mg/dL Negative Glucose,Urine (UA) (test cod e = UGLU) Negative mg/dL Negative Ketones,Urine (test code = UKET) Negative mg/dL Negative Nitrate,Urine (test code = UNIT) Negative Negative Bilirubin,Urine (test code = UBIL) Negative mg/dL Negative Urobilinogen,Urine (test cod e = UURO) 0.2 E.U./dL Normal Leukocyte Esterase,Urine (te st code = ULEU) Small mg/dL Negative A UF REFLEXUF REFLEXUrine [id number] 16:00:00* Test Item Value Reference Range Interpretation Comme nts RBC,Urine (test code = URBCUF) None Seen /HPF 0-2 WBC,Urine (test code = UWBCUF) 6-10 /HPF 0-5 A Epithelial Cell,Urine (test code = UECUF) 11-25 /HPF 0-5 A Casts,Urine (test code = UCASTUF) 6-10 /LPF None Seen A Bacteria,Urine (test code = UBACTUF) Rare /hpf None Seen UF REFLEXUF REFLEXTroponin I High [id number] 15:40:00* Test Item Value Reference Range Interpretation Comme nts Troponin I High Sensitivity (test code = TROPHS) 9 ng/L 0-45 N Comprehensive Metabolic [id number] 15:40:00* Test Item Value Reference Range Interpretation Comme nts SODIUM (test code = NA) 133.0 mmol/L 136.0-145.0 L Potassium,K (test code = K) 5.0 mmol/L 3.0-5.1 N Chloride (test code = CL) 101 mmol/L 98-107 N Carbon Dioxide (test code = CO2) 22 mmol/L 20-31 N Anion Gap (test code = GAP) 10 mmol/L 5-15 N Blood Urea Nitrogen (test code = BUN) 39 mg/dL 9-23 H Creatinine (test code = CREATT) 2.43 mg/dL 0.55-1.02 H Estimated Glomerular Filt Rate (test code = EGFR.XX) 19 See_Comment L Reported eGFR is based on the CKD-EPI 202 equation thatdoes not use a race coefficient. Additional information canbe found at:05-01-1847_gfn_ egfr_summary_flyer 5.pdf (kidney.org) [Automated message] The system which generated this result transmitted reference range: >=90 ml/min/1.73m2. The reference range was not used to interpret this result as normal/abnormal. BUN/Creatinine Ratio (test code = BCRATIO) 16 ratio 10-20 N Glucose (test code = GLU) 101 mg/dL 74-106 N Osmolality,Calculated (test code = OSMOC) 284.9 Calcium (test code = CA) 9.1 mg/dL 8.3-10.6 N Bilirubin,Total (test code = BILIT) 0.3 mg/dL 0.2-1.1 N Aspartate Amino Transferase (test code = AST) 14 U/L 0-34 N Alanine Aminotransferase (test code = ALT) 12 U/L 10-49 N Total Protein (test code = TP) 7.6 g/dL 5.7-8.2 N Albumin Level (test code = ALB) 4.3 g/dL 3.2-4.8 N Globulin (test code = GLOB) 3.3 mg/dL 2.3-3.5 N Albumin/Globulin Ratio (test code = AGRATIO) 1.3 ratio 0.8-2.0 N Alkaline Phosphatase (test code = ALP) 72 U/L 46-116 N Creatine [id number] 15:40:00* Test Item Value Reference Range Interpretation Comme nts Creatine Kinase (test code = CK) 44 U/L 46-171 L B-Type Natriuretic [id number] 15:40:00* Test Item Value Reference Range Interpretation Comme nts B-Type Natriuretic Peptide ( test code = BNP) 114.3 pg/mL 0.0-99.9 H US Renal Complete. [address] [id number] Patient Name: Kassandra Chang Medical Record#: [id number] Address: [address] [place] [address] City/State/Zip: [place] [address]: Andreina Loredo DO Phone: Insurance: Medicare A B /Age/Sex: 1935/87/F Self Pay Admit/Reg Date: 02/05/[address]: Andreina Loredo DO Location: [address] PCP: Pcp- Zoë StaffMd Date of Service: 02/05/23 Order (s): US Renal Complete CPT Code: 30354 Report Number: [id number] Reason for Exam: JT H 20 TIME OF STUDY: REASON FOR EXAM: JT COMPARISON: None. FINDINGS: High-resolution dedicated renal sonogramwas performed. B-mode grayscale and color Doppler are obtained. Both kidneys are age-appropriate insize and echogenicity. The right kidney measures 8.6 cm in length and the left is 7.7 cm. There is no evidence of hydronephrosis, calculi, or focal mass in either kidney. No perinephric fluid collections are identified. There is no abdominal ascites. Corticomedullary differentiation is well maintained. Limited views of the pelvis demonstrate a mildly distended urinary bladder. No large intraluminal filling defect or calculi are identified. IMPRESSION: 1. Normal renal sonogram. No acute abnormal ities identified. Electronically signed by: Tommy Garcia MD 02/06/2023 7:34 AM CDT Dictated By: Tommy Garcia MD 02/05/232323 Signed By: Tommy Garcia MD 02/06/23 0736 TD/TT: 02/05/232323 Tech: SSB15 cc: LCARA; PCPNS* Andreina Loredo DO; Zoraida,ERXR chest 1VSt. [address] [id number] Patient Name: Kassandra Chang Medical Record#: [id number] Address: [address] [place] [address] City/State/Zip: [place] [address]: Anthony Mckeon MD Insurance: Medicare A B /Age/Sex: 1935/87/F Self Pay Admit/Reg Date: 02/05/[address]: Thalia Holbrook NP Location: MED/ PCP: Pcp-Non StaffMd Date of Service: 02/05/23 Order (s): XR chest 1V CPT Code: 28093 Report Number: [id number] Reason for Exam: weak EXAM: Portable chest one view. Location code:J9 HISTORY: Shortness of breath COMPARISON: None available. COMMENT: Mediastinal wiresare noted.. The lungs and pleural spaces are clear. Lungs are normally expanded. The aorta, pulmonary vasculature and mediastinum are within normal limits. Cardiac silhouette is normal in size and contour. Visualized skeletal structures are unremarkable. Moderate bilateral shoulder arthrosis IMPRESSION: No active disease in the chest. Electronically signed by: Mike Horowitz MD 02/05/2023 5:39 PM CDT Dictated By: Mike Horowitz MD 02/05/231724 Signed By: Mike Horowitz MD 02/05/231741 TD/TT: 02/05/231724 Tech: JAK15 cc: DAYNA; PCPNS* Thalia Holbrook NP; Zoraida,SAM EKG ED ElectrocardiogramSt. [address] [id number] Patient Name: Kassandra Chang Medical Record#: [id number] Address: [address] [place] [address] City/State/Zip: [place] [address]: Andreina Loredo DO Phone: Insurance: Medicare A B /Age/Sex: 1935/87/F Self Pay Admit/Reg Date: 02/05/[address]: VONNIE Moscoso Location: [address] PCP: PCP,UNKNOWN Date of Service: 02/05/23 Order (s): EKG ED Electrocardiogram CPT Code: 63038 Report Number: [id number] Reason for Exam: weak/dizzy SINUS BRADYCARDIA Incomplete RBBB Possible right ventricular hypertrophy Inferior/lateral ST-T abnormality may bedue to hypertrophy and/or ischemia Summary: Abnormal ECG I45.10 Dictated By: Delgado Diallo MD02/05/231856 Signed By: Delgado Diallo MD 02/08/23 143 TD/TT: 02/05/231856 Tech: SVCCPACS cc: DAYNA; PCPUNK* Thalia Holbrook NP; PCP,UNKNOWNCT head/brain wo contrastSt. [address] [address] Patient Name: Kassandra Chang Record#: [id number] Address: [address] [place] [address] City/State/Zip: [place] [address]: Anthony Mckeon MD Insura nce: Medicaid [place] /Age/Sex: 1935/87/F Self Pay Admit/Reg Date: 02/05/[address]: Thalia Holbrook NP Location: [facility]/ PCP: Pcp-Non StaffMd Date of Service: 02/05/23 Order (s): CT head/brain wo contrast CPT Code: 99935 Report Number: [id number] Reason for Exam: weak dizzy EXAMINATION: CT head/brain wo contrast CLINICAL INDICATION: Female, 87 years old with weak dizzy TECHNIQUE: Axial CT images from the skull base to the vertex without intravenous contrast. Coronal and sagittal reformatted images were created from the data set. One or more of the following dose reduction techniques were used: Automated exposure control, adjustment of the mA and/or kV according to patient size, and/or iterative reconstruction. COMPARISON: None FINDINGS: Intracranial: Senescent and chronic small vessel ischemic changes are present. No evidence of acute infarction, intracranial hemorrhage,mass or mass effect, or abnormal extra-axial fluid collection. The ventricles are normal in size, shape and position. Vascular: The larger dural venous sinuses are grossly normal. No significant atherosclerotic plaque. Sinuses: The visualized paranasal sinuses and mastoid air cells are predominantly clear. Bones: The osseous structures and orbits have no significant abnormalities. Soft tissue: Nosignificant soft tissue abnormalities. IMPRESSION: Mild atrophy and deep white matter chronic small vessel changes with otherwise no acute abnormality. Electronically signed by: Angelo Casarez MD 02/05/2023 3:40 PM CDT Dictated By: Angelo Casarez MD 02/05/23 1535 Signed By: Angelo Casarez MD 02/05/23 1542 TD/TT: 02/05/23 153 Tech: SCR09 cc: HOUKALai; PCPNS* Thalia Holbrook NP; Ritgor,SAM CT abdomen pelvis wo contrastStBrenda V[place] [address] [place] [address] Patient Name: Kassandra Chang Medical Record#: [id number] Address: [address] City/State/Zip: [place] [address]: Anthony Mckeon MD Insurance: Medicaid [place] /Age/Sex: 1935/87/F Self Pay Admit/Reg Date: 02/05/[address]: Thalia Holbrook NP Location: [facility]/ PCP: Pcp-Non StaffMd Date of Service: 02/05/23 Order (s): CT abdomen pelvis wo contrast CPT Code: 63374 Report Number: [id number] Reason for Exam: N/V EXAMINATION:CT abdomen pelvis wo contrast CLINICAL INDICATION: Female, 87 years old with N/V TECHNIQUE: Thin section axial noncontrast contiguous images were obtained through the abdomen and pelvis followed by coronal and sagittal multiplanar reformations. One or more of the following dose reduction techniques were used: Automated exposure control, adjustment of the mA and/or kV according to patient size, and/or iterative reconstruction. COMPARISON: None FINDINGS: Lower Chest: Visualized lung bases are clear. Liver: Normal in size and contour. No focal lesions. Bile ducts are of normal caliber. Gallbladder: No stones, wall thickening, or pericholecystic fluid. Pancreas: Normal appearance without focal lesion. Spleen: Normal in size and contour. Adrenals: Normal configuration. Kidneys and ureters: Normal size and contour. Several small, 3 to 5 mm calculi noted within left renal mid and lower pole calyces. There is no ureteral calculus or hydronephrosis. Bladder/Reproductive Organs: The bladder isnormal in appearance. Unremarkable reproductive organs. There is no pelvic mass or fluid collection. Bowel: Moderate hiatal hernia. Mild thickening inflammation of the duodenum with mild adjacent inflammatory change. There is no fluid collection or free air. Loops of bowel without additional thickening or dilatation. Normal appendix. Diverticuli are seen scattered throughout the sigmoid colon with no wall thickening or adjacent inflammation. There is no free intraperitoneal air or fluid. Lymph nodes: There are no pathologically enlarged abdominopelvic lymph nodes. Retroperitoneum: There is noretroperitoneal adenopathy, mass, or fluid collection. Abdominal aortic atherosclerosis without aneurysm. Abdominal wall: Abdominal wall is intact with no hernia or defect. 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 There is resultant scoliotic curvature and associated spondylosis of the lumbar spine. There is no visualized acute osseous abnormality. IMPRESSION: 1. Mild thickening and inflammation of the duodenum suggestive of duodenitis. There is no adjacent fluid collection or free air. 2. Moderate hiatal hernia. 3. Diverticulosis without evidence of diverticulitis. 4. Several small, nonobstructing left renal calculi. Electronically signed by: Angelo Casarez MD 02/05/2023 3:48 PM CDT Dictated By: Angelo Casarez MD 02/05/23 152 Signed By: Angelo Casarez MD 02/05/23 1550 TD/TT: 02/05/231527 Tech: SCR09 cc: DAYNA; PCPNS* Thalia Holbrook NP; SAM Conway Notes Date/Time Note Provider Source 2023-02-07 11:45:00 [id number] [id number] Abrq+dd8PbXcLcQ9904-31-25Z74:45:00 [facility] [address] [place] [address] Discharge Summary Signed Patient: Kassandra Chang Medical Record#: [id number] : 1935 Acct:[id number] Age/Sex: 87 / F Admit/Reg Date: 02/05/23 Loc: [id number] Room: [address] Report Number: [id number] Attending Dr: Andreina Loredo DO DS: Providers Primary Care Provider: SAM Conway Attending physician on admission: Andreina Loredo Consults: 02/05/23 22:23 Occupational Therapy Consult Routine Comment: Physician Instructions: Reason For Exam: Please evaluate and treat Weight Bearing Status: Full weight bearing Potential discharge today?: No Fall Risk Score Total: 7 Physical Therapy Consult Routine Comment: Physician Instructions: Reason For Exam: Please evaluate and treat Weight Bearing Status: Full weight bearing Potential discharge today?: No Fall Risk Score Total: 7 02/06/23 00:32 Nephrology Consult Routine Comment: Consulting Provider: Joelle Coon Physician Instructions: Reason For Exam: JT Attending physician on discharge: Andriena Loredo Discharging clinician: Marleni Espinoza DS: Diagnosis - Discharge Diagnosis (1) Duodenitis Status: Acute (2) Hyponatremia Status: Acute (3) CAD (coronary artery disease) Status: Acute (4) Hiatal hernia Status: Acute (5) Diverticulosis Status: Acute (6) Left nephrolithiasis Status: Acute (7) Hypertension Status: Acute (8) Nausea vomiting Status: Acute (9) Anemia, chronic disease Status: Acute (10) JT (acute kidney injury) Status: Acute (11) Generalized weakness Status: Acute (12) UTI (urinary tract infection) Status: Acute DS: Summary Date of Admit: 02/05/23 20:07 Date of Encounter: 02/07/23 Date of Discharge: 02/07/23 Hospital course: Patient is an 87-year-old female with a past medical history of coronary artery disease status post CABG and hypertension who presents with a chief complaint of generalized muscle weakness, UTI, and concerns for kidney function. Patient states that on 01/30/2023 she was diagnosed with a UTI at in emergency department and was started on Bactrim. Patient was also informed at that time that her kidney function was not ideal that her creatinine was 1.75. Patient states that at that time she did not feel well taking Bactrim and 2 days later began to have nausea and vomiting. Patient had 2 episodes of vomiting yesterday and feels dehydrated. Patient has also had very little oral intake for the last few days. Patient is not able to complete her activities of daily living due to the generalized muscle weakness and dehydration. Patient has concerns about her renal function since she was informed that her kidneys were injured on 01/30/2023 when she had presented the emergency department at outside hospital. Assessment: JT on top of CKD-likely secondary to gastroenteritis-resolved from 39/2.43 GFR 19 to 29/1.74 GFR 28; nephrology consulted, continue IV fluids-currently on LR 75 cc an hour; BUN/creatinine now 17/1.33 Renal ultrasound:Normal renal sonogram. No acute abnormalities identified. For now avoid nephrotoxic agents, hold off on home medications which includes valsartan-HCTZ, ibuprofen 600 mg Q 8 p.r.n., Bactrim Duodenitis-per CT reports continue IV fluids; start famotidine [address] abdomen/pelvis:1. Mild thickening and inflammation of the duodenum suggestive of duodenitis. There is no adjacent fluid collection or free air. 2. Moderate hiatal hernia. 3. Diverticulosis without evidence of diverticulitis. 4. Several small, nonobstructing left renal calculi. Hyponatremia-now resolved UTI-patient was started on Bactrim when she started feeling sick, currently on antibiotics, follow-up urine cultures iv to PO cefpodoxime x 2 more days Generalized weakness-PT/OT consulted Coronary artery disease status post CABG-stable Hiatal hernia-stable Diverticulosis-stable Left nephrolithiasis-stable Hypertension-hold meds for now, consider restarting home metoprolol, discontinue valsartan HCTZ due to JT Safe to restart home metoprolol Nausea/vomiting-p.r.n. antiemetics History of ruptured bowel status post partial colectomy Anemia of chronic disease-10.7/33.1 Stable for discharge home Discussed with daughter Patient encouraged to continue to take medications as prescribed Patient instructed to return back to the hospital if his symptoms return or worsen Discharge this patient took greater than 30 minutes due to blod-qv-phwo time with patient - Time Spent with Patient Total time spent providing and/or coordinating discharge services: - Attestation Attestation: I have reviewed all pertinent laboratory findings. Confirm Results Attestation: Yes Results check: Pass Exam Vital signs: Temp Pulse Resp BP Pulse Ox 98.1 F 70 20 125/40 L 97 02/07/23 06:57 02/07/23 06:57 02/07/23 06:57 02/07/23 06:57 02/07/23 06:57 Body Mass Index (BMI): 30.3 Body Habitus: obese DS: Data Did Patient have any Procedures?: No Does Patient have Pending Results?: No Result Diagrams: 02/06/23 05:41 02/07/23 06:00 Labs on Day of Discharge: Labs on Day of Discharge 02/07/23 02/07/23 02/07/23 01:13 06:00 06:00 Sodium 137.0 Potassium 4.8 Chloride 108 H Carbon Dioxide 21 Anion Gap 8 BUN 17 Creatinine 1.33 H Estimated Creat Clear Gas Appliance Installer Estimated GFR 39 L Glucose 100 Calculated Osmolality 285.0 Calcium 8.7 Phosphorus 2.6 Iron 76 TIBC 259 Iron Saturation 29 Ferritin 19.8 Albumin 3.4 Vitamin D 25-Hydroxy 43 PTH Intact 58.6 Ur Random Creatinine 18.4 U Random Total Protein < 6.0 Protein/Creatinin Ratio 0.30 Discharge Plan - Medications Prescriptions: New cefpodoxime 200 mg Tablet 200 mg PO DAILY@0800 2 Days Qty: 2 RF: 0 Prescription Printed esomeprazole magnesium [Nexium 24HR] 20 mg Tablet,Delayed Release (Dr/Ec) 20 mg PO DAILY 30 Days Qty: 30 RF: 0 Prescription Printed Continued metoprolol tartrate 50 mg tablet 50 mg PO BIDMEAL Discontinued ibuprofen 600 mg tablet 600 mg PO Q8H PRN (Reason: pain) sulfamethoxazole-trimethoprim 800-160 mg tablet 1 tab PO Q12H valsartan-hydrochlorothiazide 160-12.5 mg tablet 1 tab PO DAILY - Follow up Plan Follow up with: SAM Conway [Other] - Disposition Disposition: Home Health Service - Discharge Orders Discharge Orders: Discharge (Routine); Ordered 02/07/23 Ordered By: Marleni Espinoza - Discharge Data Reason For Visit: Acute kidney injury, UTI, duodenitis Admit Provider: Andreina Loredo Attending Provider: Andreina Loredo Admit Date/Time: 02/05/23 20:07 - Patient/Caregiver Discharge Instructions Discharge Diagnosis:: JT, weakness, duodenitis, UTI Condition: Good - Discharge Information Print Language: Egyptian Quality - Smoking Status Smoking Status: Never tobacco user Dictated By: Marleni Espinoza MD Signed By: Marleni Espinoza MD 02/07/23 1204 DD/ 1145 TD/TT: 02/07/23 1145 Remediation Project Engineer: IDALMIS cc: CLARA; PCPCHICHO; MAIA Loredo DO; Marleni Espinoza MD; SAM ConwayDSDischarmaria luz SummaryYanni Graham2023-05-14T11:45:00P.DSAVAvaila [facility] [facility] lazbHIRWLDeZITMt3034-94-74R29:04:32 [facility] 2023-02-06 09:48:00 [id number] hHcnE1mLridss5lJqDPcjMJa0VIez HERQoizkVECizLB8059-64-85K35:48:00 [facility] [address] [place] [address] General Medicine Progress Note Signed Patient: Kassandra Chang Medical Record#: [id number] : 1935 Acct:[id number] Age/Sex: 87 / F Admit/Reg Date: 02/05/23 Loc: [facility]8 Room: [address] Report Number: [id number]: Andreina RUSS Subsequent Impression: Patient is an 87-year-old female with a past medical history of coronary artery disease status post CABG and hypertension who presents with a chief complaint of generalized muscle weakness, UTI, and concerns for kidney function. Patient states that on 01/30/2023 she was diagnosed with a UTI at in emergency department and was started on Bactrim. Patient was also informed at that time that her kidney function was not ideal that her creatinine was 1.75. Patient states that at that time she did not feel well taking Bactrim and 2 days later began to have nausea and vomiting. Patient had 2 episodes of vomiting yesterday and feels dehydrated. Patient has also had very little oral intake for the last few days. Patient is not able to complete her activities of daily living due to the generalized muscle weakness and dehydration. Patient has concerns about her renal function since she was informed that her kidneys were injured on 01/30/2023 when she had presented the emergency department at outside hospital. Assessment: JT on top of CKD-likely secondary to gastroenteritis-improving from 39/2.43 GFR 19 to 29/1.74 GFR 28; nephrology consulted, continue IV fluids-currently on LR 75 cc an hour Renal ultrasound:Normal renal sonogram. No acute abnormalities identified. For now avoid nephrotoxic agents, hold off on home medications which includes valsartan-HCTZ, ibuprofen 600 mg Q 8 p.r.n., Bactrim Duodenitis-per CT reports continue IV fluids; on Rocephin/Flagyl, start famotidine [address] abdomen/pelvis:1. Mild thickening and inflammation of the duodenum suggestive of duodenitis. There is no adjacent fluid collection or free air. 2. Moderate hiatal hernia. 3. Diverticulosis without evidence of diverticulitis. 4. Several small, nonobstructing left renal calculi. Hyponatremia-now resolved UTI-patient was started on Bactrim when she started feeling sick, currently on antibiotics, follow-up urine cultures Generalized weakness-PT/OT consulted Coronary artery disease status post CABG-stable Hiatal hernia-stable Diverticulosis-stable Left nephrolithiasis-stable Hypertension-hold meds for now, consider restarting home metoprolol, discontinue valsartan HCTZ due to JT Nausea/vomiting-p.r.n. antiemetics History of ruptured bowel status post partial colectomy Anemia of chronic disease-..1 Plan: Admit to medical floor Vital signs are stable Consulted director of special events Dr. Joelle Epstein ; appreciate any recommendations Bolused 1 L of normal saline emergency department; continue with IV normal saline for fluid hydration Empiric IV ceftriaxone as mentioned in the emergency department; continue with IV ceftriaxone and initiate IV Flagyl at this time Blood cultures x2 and urine culture obtained; follow-up results Strict intake and output Follow renal indices Renal ultrasound complete ordered to rule out any postobstructive process; follow-up results Urine creatinine and urine protein/creatinine ratio ordered; follow-up results PT/OT ordered to evaluate and treat P.r.n. orders for constipation relief, Tylenol, Nicotine replacement, Tums, anti-itch cream, and melatonin ordered Repeat serum blood work ordered for the a.m.; follow-up results Monitor Labs, renal function, serum electrolytes, and for nosocomial infectious processes Continue home medications once verified and if appropriate Cardiac Diet DVT prophylaxis with subcutaneous heparin Full code Further recommendations pending response to treatment (1) Duodenitis Status: Acute Assessment and Plan: As above (2) Hyponatremia Status: Acute Assessment and Plan: As above (3) CAD (coronary artery disease) Status: Acute Assessment and Plan: As above (4) Hiatal hernia Status: Acute Assessment and Plan: As above (5) Diverticulosis Status: Acute Assessment and Plan: As above (6) Left nephrolithiasis Status: Acute Assessment and Plan: As above (7) Hypertension Status: Acute Assessment and Plan: As above (8) Nausea vomiting Status: Acute Assessment and Plan: As above (9) Anemia, chronic disease Status: Acute Assessment and Plan: As above (10) JT (acute kidney injury) Status: Acute Assessment and Plan: As above (11) Generalized weakness Status: Acute Assessment and Plan: As above (12) UTI (urinary tract infection) Status: Acute Assessment and Plan: As above - Attestation Attestation: I have reviewed all pertinent laboratory findings. Confirm Results Attestation: Yes Problem List Attestation Statement: I have documented a relevant problem and problem plan for this visit. Attending Confirm Problem: Yes Attending Problem List Check: Pass Subjective Date of Encounter: 02/06/23 Subjective Details: Patient seen examined-feeling much better this morning. Three daughters at bedside, all questions answered Patient still having some right-sided flank pain Preferred Language: Egyptian Review of Systems - Review of Systems All systems reviewed no additional complaints except as documented Exam Vital signs: Temp Pulse Resp BP Pulse Ox 98.1 F 65 16 140/47 L 96 02/06/23 07:10 02/06/23 07:10 02/06/23 07:10 02/06/23 07:10 02/06/23 07:10 Narrative: General: Well developed, well nourished, in no acute distress Head: Normocephalic and atraumatic, EENT: Conjunctivae and sclera clear, clear oropharynx, moist oral mucosa Neck: Supple, Lungs: Clear bilaterally to auscultation, no wheezing, rales, or rhonchi, Heart: Regular rate and rhythm, S1, S2 , No Murmur or rubs, no pedal edema Abdomen: Soft, obese, non-tender, non-distended, + Bowel sounds, : No CVA tenderness Extremities: No cyanosis or edema, Musculoskeletal: FROM, no deformities Neurologic: AA O X3, CN II-XII grossly intact, No focal motor deficits Skin: Warm, No rashes or induration Psych: Cooperative, Normal mood, Normal affect Body Mass Index (BMI): 30.3 Body Habitus: obese GM Results - Pertinent Lab Findings 02/06/23 05:41 02/06/23 05:41 Last 24 Hours - Abnormal 02/05/23 02/05/23 02/05/23 15:40 15:40 16:00 Hgb Hct MCH MCHC RDW Coeff of Lillian Sodium 133.0 mmol/L L mmol/L (136.0-145.0) Chloride Carbon Dioxide BUN 39 mg/dL H mg/dL (9-23) Creatinine 2.43 mg/dL H mg/dL (0.55-1.02) Estimated GFR 19 L (>=90 ml/min/1.73m2) Total Creatine Kinase 44 U/L L U/L (46-171) B-Natriuretic Peptide 114.3 pg/mL H pg/mL (0.0-99.9) Urine Clarity Cloudy A (Clear) Ur Leukocyte Esterase Small mg/dL A mg/dL (Negative) Urine WBC (Auto) 6-10 /HPF A /HPF (0-5) Urine Casts (Auto) 6-10 /LPF A /LPF (None Seen) U Epithel Cells (Auto) 11-25 /HPF A /HPF (0-5) 02/05/23 02/06/23 02/06/23 16:40 05:41 05:41 Hgb 11.5 g/dL L g/dL 10.7 g/dL L g/dL (12.2-14.8) (12.2-14.8) Hct 36.4 % L % 33.1 % L % (36.5-44.4) (36.5-44.4) MCH 26.9 pg L pg (27.0-32.5) MCHC 31.60 g/dL L g/dL (32.00-37.50) RDW Coeff of Lillian 16.3 % H % 16.2 % H % (11.5-14.5) (11.5-14.5) Sodium Chloride 108 mmol/L H mmol/L (98-107) Carbon Dioxide 18 mmol/L L mmol/L (20-31) BUN 29 mg/dL H mg/dL (9-23) Creatinine 1.74 mg/dL H mg/dL (0.55-1.02) Estimated GFR 28 L (>=90 ml/min/1.73m2) Total Creatine Kinase B-Natriuretic Peptide Urine Clarity Ur Leukocyte Esterase Urine WBC (Auto) Urine Casts (Auto) U Epithel Cells (Auto) Pending and Preliminary Microbiology Results 02/06/23 05:39 Blood Blood Culture - Pending 02/06/23 05:44 Blood Blood Culture - Pending GM Subsequent Quality Smoking Status: Never tobacco user VTE Risk Level: Moderate VTE Prophylaxis Device: Seq Compression Device - Patient Rights Advance Directives Information Provided: No Does Pt Have an Advanced Directive for End of Life Issues?: No Does Patient Have a Health Care Proxy?: No Dictated By: Marleni Espinoza MD Signed By: Marleni Espinoza MD 02/06/23 1153 DD/ 7 TD/TT: 02/06/23947 Remediation Project Engineer: IDALMIS cc: IDALMIS* Marleni Espinoza MD P.PNGMGeneral Medicine Progress NoteVARAlex HelmVyglaUvnrsivgUxxfu8218-73-03V26:48:00P.PNGMAVAvai lable for patient sxgwOIFXLTzVUTKe2770-88-56X19:54:11 [facility] 2023-02-06 09:25:00 9+zEArijYhuN0CPf0g8B wuxJHHJXH2Btz9aRD7BateKgvHQLK 6Y95aQ1ZxZiVgaI8800-73-83L73:25:00 [facility] [address] [place] [address] Renal Consult Note Signed Patient: Kassandra Chang Medical Record#: [id number] : 1935 Acct:[id number] Age/Sex: 87 / F Admit/Reg Date: 02/05/23 Loc: [facility] Room: [address] Report Number: [id number]: Andreina Loredo DO HPI Date of Encounter: 02/06/23 Time of Encounter: 09:25 Referring Provider: Andreina Loredo Reason for Consult: JT Chief complaint HPI: generalized weakness History of Present Illness: 87yo F with multi-comorbid past medical history presenting to [facility] for evaluation of progressively worsening generalized weakness associated with dizziness and impaired PO intake within the setting of nausea and vomiting over the course of approximately three days. Of note; patient was started on bactrim by her PCP for management of urinary tract infection approximately one week prior to today presentation and denies any previous history of chronic kidney disease. Apart from the aforementioned; patient denies cardiopulmonary, METAL BUMPER, or GI/ deviation from clinical baseline priorto onset of presenting symptomatology. Renal consulted for evaluation and management of acute kidneyinjury. Active Medications Calcium Carbonate (Calcium Carbonate 500 Mg Chew Tab) 500 mg PO BID@0900,2100 PRN PRN Reason: Heartburn Heparin Sodium (Porcine) (Heparin 5,000 Unit/1 Ml Inj) 5,000 unit SC Q12H [facility] Last Admin: 02/06/23 08:09 Dose: 5,000 unit Documented By: NORA Ceftriaxone Sodium 1 gm/ (Sodium Chloride) 50 mls @ 100 mls/hr IV Q24H [facility] Last Admin: 02/06/23 08:09 Dose: 100 mls/hr Documented By: NORA Metronidazole/Sodium Chloride (Flagyl 500 Mg/100 Ml) 500 mg in 100 mls @ 100 mls/hr IV Q8H [facility] Last Admin: 02/06/23 05:58 Dose: 100 mls/hr Documented By: ZOE Magnesium Hydroxide (Magnesium Hydroxide 30 Ml Udl) 30 ml PO DAILY PRN PRN Reason: 1st agent for Constipation Melatonin (Melatonin 5 Mg Tablet) 5 mg PO QHS PRN PRN Reason: Insomnia Nicotine Polacrilex (Nicotine 2 Mg Gum) 2 mg BUCCAL Q1H PRN PRN Reason: Nicotine craving/withdrawal Ondansetron HCl (Ondansetron Odt 4 Mg Tabdis) 4 mg PO Q8H PRN PRN Reason: Nausea Zinc Acetate/Diphenhydramine (Diphenhydramine/Zinc 28 Appl/28 Gm Tube) 1 appl TOPICAL QID PRN PRN Reason: Itching Home Medications: ibuprofen 600 mg tablet 600 mg PO Q8H PRN pain 02/05/23 [History Confirmed 02/05/23 Last Taken 02/05/23 09:00] metoprolol tartrate 50 mg tablet 50 mg PO BIDMEAL 02/05/23 [History Confirmed 02/05/23 Last Taken 02/05/23 09:00] sulfamethoxazole 800 mg-trimethoprim 160 mg tablet 1 tab PO Q12H 02/05/23 [History Confirmed 02/05/23 Last Taken 02/05/23 09:00] valsartan 160 mg-hydrochlorothiazide 12.5 mg tablet 1 tab PO DAILY 02/05/23 [History Confirmed 02/05/23 Last Taken 02/05/23] Allergies/Adverse Reactions: acetaminophen [From Tylenol] Allergy (Intermediate, Verified 02/05/23 22:54) Rash Family/Social History - CAD Risk Factors CAD Risk Factors (Pls confirm presence on problem list): Hypertension - Social History Lives With: Family Living Situation: Private Home Smoking Status: Never tobacco user 1. How Often Do You Have a Drink Containing Alcohol: a. Never Audit-C Score: 0 Audit-C Result: Negative Do You Currently Use or Have Hx of Using Recreational Drugs: No Review of Systems - Review of Systems Constitutional: No fever, No chills Eye: No recent change in vision, no double vision Ear/Nose/Mouth/Throat: No decreased hearing Respiratory: no shortness of breath Cardiovascular: no chest pain Gastrointestinal: No fecal incontinence Genitourinary: No urinary incontinence Hematology/Lymphatics: No bruising tendency, No bleeding tendency Endocrine: No excessive thirst, no polyuria Immunologic: No recurrent fevers, No recurrent infections Musculoskeletal: No joint pain Integumentary: No rash Neurologic: No headache, No numbness Psychiatric: No anxiety, No depression Exam Vital signs: Temp Pulse Resp BP Pulse Ox 36.7 C 65 16 140/47 L 96 02/06/23 07:10 02/06/23 07:10 02/06/23 07:10 02/06/23 07:10 02/06/23 07:10 Narrative: General: AAO x 3, NAD HEENT: NC/AT, PERRLA, EOMI Neck: full ROM, no JVD or tenderness CV: normal heart sounds, RRR, no MGR Pulm: no respiratory distress, symmetric chest expansion GI: soft, nontender, +BS, no distention/organomegaly Neuro: non-focal, no motor or sensory deficits, CN II-XII grossly intact Ext: ROM WNL, no CCE Psych: stable affect, no SI, HI, or hallucinations Body Mass Index (BMI): 30.3 Body Habitus: obese Renal Results Result Diagrams: 02/06/23 05:41 02/06/23 05:41 Pertinent Lab Findings: Last CMP Sodium 138.0 mmol/L (136.0-145.0) 02/06/23 05:41 Potassium 4.6 mmol/L (3.0-5.1) 02/06/23 05:41 Chloride 108 mmol/L (98-107) H 02/06/23 05:41 Carbon Dioxide 18 mmol/L (20-31) L 02/06/23 05:41 Anion Gap 12 mmol/L (5-15) 02/06/23 05:41 BUN 29 mg/dL (9-23) H 02/06/23 05:41 Creatinine 1.74 mg/dL (0.55-1.02) H 02/06/23 05:41 Estimated Creat Clear Gas Appliance Installer 02/06/23 05:41 BUN/Creatinine Ratio 17 ratio (10-20) 02/06/23 05:41 Glucose 101 mg/dL (74-106) 02/06/23 05:41 Calcium 8.7 mg/dL (8.3-10.6) 02/06/23 05:41 Total Bilirubin 0.3 mg/dL (0.2-1.1) 02/06/23 05:41 AST 11 U/L (0-34) 02/06/23 05:41 ALT 11 U/L (10-49) 02/06/23 05:41 Alkaline Phosphatase 62 U/L (46-116) 02/06/23 05:41 Total Protein 6.7 g/dL (5.7-8.2) 02/06/23 05:41 Albumin 3.9 g/dL (3.2-4.8) 02/06/23 05:41 Albumin/Globulin Ratio 1.4 ratio (0.8-2.0) 02/06/23 05:41 Last UA Urine Color Yellow (Yellow) 02/05/23 16:00 Urine Clarity Cloudy (Clear) A 02/05/23 16:00 Urine pH 5.5 (5.0-9.0) 02/05/23 16:00 Ur Specific [place] 1.015 (1.005-1.030) 02/05/23 16:00 Urine Protein Negative mg/dL (Negative) 02/05/23 16:00 Urine Glucose (UA) Negative mg/dL (Negative) 02/05/23 16:00 Urine Ketones Negative mg/dL (Negative) 02/05/23 16:00 Urine Blood Negative mg/dL (Negative) 02/05/23 16:00 Urine Nitrate Negative (Negative) 02/05/23 16:00 Urine Bilirubin Negative mg/dL (Negative) 02/05/23 16:00 Urine Urobilinogen 0.2 E.U./dL (Normal) 02/05/23 16:00 Ur Leukocyte Esterase Small mg/dL (Negative) A 02/05/23 16:00 Last Mg, Uric Acid, Phosphorus Phosphorus 2.7 mg/dL (2.4-5.9) 02/06/23 05:41 Magnesium 2.0 mg/dL (1.6-2.6) 02/06/23 05:41 Assessment and Plan Impression: 87yo F admitted for management of complicated UTI. Renal consulted for evaluation management of JT. #JT: 2/2 HD dysregulation d/t "triple whammy"(GI losses w/s bactrim, NSAID, ARB + HCTZ); unknown baseline; US WNL -no nephrotoxics(NSAID, ARB, HCTZ held), start LR @ 75cc/h, renally dose Rx, strict I/Os #NAGMA: < 20 -DC NS, continue Tx as delineated above #HTN: uncontrolled -start QD norvasc + PRN hydralazine #Hyponatremia: resolved -continue supportive care #Nephrolithiasis: non-obstructed L. side involvement observed by CT -counseled RE: dehydration avoidance #Dispo: per primary -will continue to follow - Attending Documentation Confirm Attending Attestation: Yes Attending Attestation Statement: {I personally saw the patient and performed a substantive portion of the visit including all aspects of the medical decision making.} MDM and Clinical Condition Notes: see impression - E M Encounter Coding Time spent: 55 minutes (level 3) - Attestation Attestation: I have reviewed and updated the patient's past medical, social, and family history as necessary and have reviewed pertinent laboratory findings. Confirm PMH/FSH Attestation: Yes Problem List Attestation Statement: I have documented a relevant problem and problem plan for this visit. Attending Confirm Problem: Yes Attending Problem List Check: Pass Dictated By: Kimberly Jimenez, Signed By: Joelle Coon MD 02/06/23 1739 DD/ 4 TD/TT: 02/06/23924 Remediation Project Engineer: KAREEM cc: NEIL Loredo DO; OluwJUSTIN BrownNephrology ConsultationKarin JimenezKarolus AgeeWbokkrIhvncekzga0988-41-08H30:25:00PNandini gu for patient pfchYLNJOZvNSMUk2582-03-13I86:40:01 [facility] 2023-02-05 19:57:00 yBgSdaGmdGi5/wrnFaJ/ U+HFkTZa1xLYbHuRiyfyKFBXQ3mvV 8rV1GT790L6AKGi7598-58-99R70:57:00 [facility] [address] [place] [address] GM History Physical Signed Patient: Kassandra Chang Medical Record#: [id number] : 1935 Acct:[id number] Age/Sex: 87 / F Admit/Reg Date: 02/05/23 [facility] Room: [address] Report Number: [id number] Attending Dr: Andreina Loredo DO HPI Date of Encounter: 02/05/23 Chief complaint HPI: Nausea, vomiting, decreased renal function History of Present Illness: Patient is an 87-year-old female with a past medical history of coronary artery disease status post CABG and hypertension who presents with a chief complaint of generalized muscle weakness, UTI, and concerns for kidney function. Patient states that on 01/30/2023 she was diagnosed with a UTI at in emergency department and was started on Bactrim. Patient was also informed at that time that her kidney function was not ideal that her creatinine was 1.75. Patient states that at that time she did not feel well taking Bactrim and 2 days later began to have nausea and vomiting. Patient had 2 episodes of vomiting yesterday and feels dehydrated. Patient has also had very little oral intake for the last few days. Patient is not able to complete her activities of daily living due to the generalized muscle weakness and dehydration. Patient has concerns about her renal function since she was informed that her kidneys were injured on 01/30/2023 when she had presented the emergency department at outside hospital. Surgical history: Partial colectomy, CABG Family history: Noncontributory per patient Tobacco use: Denies Alcohol use: Denies Illicit drug use: Denies Allergies to medications: Denies ED course: In triage, vital signs were obtained and revealed to be stable and within normal limits. Serum blood work and urine studies were obtained and revealed results as shown in corresponding sections below. CT scan of the abdomen and pelvis without contrast was obtained revealed the followin. Mild thickening and inflammation of the duodenum suggestive of duodenitis. There is no adjacent fluid collection or free air. 2. Moderate hiatal hernia. 3. Diverticulosis without evidence of diverticulitis. 4. Several small, nonobstructing left renal calculi. Home Medications: ibuprofen 600 mg tablet 600 mg PO Q8H PRN pain 02/05/23 [History Confirmed 02/05/23 Last Taken 02/05/23 09:00] metoprolol tartrate 50 mg tablet 50 mg PO BIDMEAL 02/05/23 [History Confirmed 02/05/23 Last Taken 02/05/23 09:00] sulfamethoxazole 800 mg-trimethoprim 160 mg tablet 1 tab PO Q12H 02/05/23 [History Confirmed 02/05/23 Last Taken 02/05/23 09:00] valsartan 160 mg-hydrochlorothiazide 12.5 mg tablet 1 tab PO DAILY 02/05/23 [History Confirmed 02/05/23 Last Taken 02/05/23] Allergies/Adverse Reactions: acetaminophen [From Tylenol] Allergy (Intermediate, Verified 02/05/23 22:54) Rash Past Medical/Surgical History Narrative PMH: As mentioned in HPI above. Family/Social History - CAD Risk Factors CAD Risk Factors (Pls confirm presence on problem list): Hypertension Smoking Status: Never tobacco user 1. How Often Do You Have a Drink Containing Alcohol: a. Never Audit-C Score: 0 Audit-C Result: Negative Review of Systems - Review of Systems All systems reviewed no additional complaints except as documented Exam Vital signs: Temp Pulse Resp BP Pulse Ox 36.8 C 59 L 14 145/49 H 100 02/05/23 15:42 02/05/23 18:03 02/05/23 18:03 02/05/23 18:03 02/05/23 18:03 Narrative: General appearance: alert, awake, oriented, no acute distress Head/Eyes/Mouth: EOMI, PERRLA, normocephalic/atraumatic, dry mucous membranes Neck: no JVD Cardiovascular: regular rate rhythm, normal heart sounds, no murmur Respiratory: clear to auscultation bilaterally, no wheezes, no rhonchi, symmetric chest expansion oninhalation Abdomen/GI: active bowel sounds, non-tender, no distension Extremities: moves all, no edema Skin: no rashes Neuro/METAL BUMPER: alert, oriented X 3, no motor deficits, no sensory deficits Psych: judgement normal Body Mass Index (BMI): 30.3 Body Habitus: obese GM Results - Pertinent Lab Findings 02/05/23 16:40 02/05/23 15:40 Pertinent Lab Findings: Abnormal Results - 24 Hours 02/05/23 02/05/23 02/05/23 15:40 15:40 16:00 Hgb Hct MCH MCHC RDW Coeff of Lillian Sodium 133.0 mmol/L L mmol/L (136.0-145.0) BUN 39 mg/dL H mg/dL (9-23) Creatinine 2.43 mg/dL H mg/dL (0.55-1.02) Estimated GFR 19 L (>=90 ml/min/1.73m2) Total Creatine Kinase 44 U/L L U/L (46-171) B-Natriuretic Peptide 114.3 pg/mL H pg/mL (0.0-99.9) Urine Clarity Cloudy A (Clear) Ur Leukocyte Esterase Small mg/dL A mg/dL (Negative) Urine WBC (Auto) 6-10 /HPF A /HPF (0-5) Urine Casts (Auto) 6-10 /LPF A /LPF (None Seen) U Epithel Cells (Auto) 11-25 /HPF A /HPF (0-5) 02/05/23 16:40 Hgb 11.5 g/dL L g/dL (12.2-14.8) Hct 36.4 % L % (36.5-44.4) MCH 26.9 pg L pg (27.0-32.5) MCHC 31.60 g/dL L g/dL (32.00-37.50) RDW Coeff of Lillian 16.3 % H % (11.5-14.5) Sodium BUN Creatinine Estimated GFR Total Creatine Kinase B-Natriuretic Peptide Urine Clarity Ur Leukocyte Esterase Urine WBC (Auto) Urine Casts (Auto) U Epithel Cells (Auto) Assessment and Plan Impression: Assessment: JT on CKD; creatinine 2.43 with a recent value at outside emergency department of 1.73 unknown stage Infectious Gastroenteritis Hyponatremia; mild with sodium level 133 UTI Generalized weakness Coronary artery disease status post CABG Hiatal hernia Diverticulosis Left nephrolithiasis Hypertension History of ruptured bowel status post partial colectomy Plan: Admit to medical floor Vital signs are stable Consulted director of special events Dr. Joelle Epstein ; appreciate any recommendations Bolused 1 L of normal saline emergency department; continue with IV normal saline for fluid hydration Empiric IV ceftriaxone as mentioned in the emergency department; continue with IV ceftriaxone and initiate IV Flagyl at this time Blood cultures x2 and urine culture obtained; follow-up results Strict intake and output Follow renal indices Renal ultrasound complete ordered to rule out any postobstructive process; follow-up results Urine creatinine and urine protein/creatinine ratio ordered; follow-up results PT/OT ordered to evaluate and treat P.r.n. orders for constipation relief, Tylenol, Nicotine replacement, Tums, anti-itch cream, and melatonin ordered Repeat serum blood work ordered for the a.m.; follow-up results Monitor Labs, renal function, serum electrolytes, and for nosocomial infectious processes Continue home medications once verified and if appropriate Cardiac Diet DVT prophylaxis with subcutaneous heparin Full code Further recommendations pending response to treatment This document was created using a voice recognition transcribing system. Incorrect words or phrasesinserted erroneously due to software misinterpretation/mistranscription may have been missed during proof reading. Please contact the hospitalist for clarification if necessary. (1) JT (acute kidney injury) Status: Acute Assessment and Plan: Plan as mentioned above. - Attestation Attestation: I have reviewed and updated the patient's past medical, social, and family history as necessary and have reviewed pertinent laboratory findings. Confirm PMH/FSH Attestation: Yes Problem List Attestation Statement: I have documented a relevant problem and problem plan for this visit. Attending Confirm Problem: Yes Attending Problem List Check: Pass Quality VTE Risk Level: Moderate - Patient Rights Does Pt Have an Advanced Directive for End of Life Issues?: No Does Patient Have a Health Care Proxy?: No Risk Calculators Results/Orders - Results and Orders Result diagrams: 02/05/23 16:40 02/05/23 15:40 Lab Testing Results 02/05/23 15:40: WBC Cancelled, RBC Cancelled, Hgb Cancelled, Hct Cancelled, MCV Cancelled, MCH Cancelled, MCHC Cancelled, RDW Coeff of Lillian Cancelled, Plt Count Cancelled, MPV Cancelled, Immature Gran % (Auto) Cancelled, Neut % (Auto) Cancelled, Lymph % (Auto) Cancelled, Isabella % (Auto) Cancelled,Eos % (Auto) Cancelled, Baso % (Auto) Cancelled, Neut # (Auto) Cancelled, Lymph # (Auto) Cancelled, Isabella # (Auto) Cancelled, Eos # (Auto) Cancelled, Baso # (Auto) Cancelled, Immature Gran # (Auto) Cancelled, Absolute Nucleated RBC Cancelled, Nucleated RBC % (auto) Cancelled 02/05/23 15:40: Sodium 133.0 L, Potassium 5.0, Chloride 101, Carbon Dioxide 22, Anion Gap 10, BUN 39H, Creatinine 2.43 H, Estimated Creat Clear Gas Appliance Installer, Estimated GFR 19 L, BUN/Creatinine Ratio 16, [id number], Calculated Osmolality 284.9, Calcium 9.1, Total Bilirubin 0.3, AST 14, ALT 12, Alkaline Phosphatase 72, Total Creatine Kinase 44 L, Total Protein 7.6, Albumin 4.3, Globulin 3.3, Albumin/Globulin Ratio 1.3 02/05/23 15:40: Troponin I High Sens 9 02/05/23 15:40: B-Natriuretic Peptide 114.3 H 02/05/23 16:00: Urine Color Yellow, Urine Clarity Cloudy A, Urine pH 5.5, Ur Specific [place] 1.015,Urine Protein Negative, Urine Glucose (UA) Negative, Urine Ketones Negative, Urine Blood Negative, Urine Nitrate Negative, Urine Bilirubin Negative, Urine Urobilinogen 0.2, Ur Leukocyte Esterase Small A, Urine WBC (Auto) 6-10 A, Urine RBC (Auto) None seen, Urine Casts (Auto) 6-10 A, U Epithel Cells (Auto) 11-25 A, Urine Bacteria (Auto) Rare 02/05/23 16:40: Troponin I High Sens 9 02/05/23 16:40: WBC 9.8, RBC 4.27, Hgb 11.5 L, Hct 36.4 L, MCV 85.20, MCH 26.9 L, MCHC 31.60 L, RDW Coeff of Lillian 16.3 H, Plt Count 314, MPV 10.8, Immature Gran % (Auto) 0.3, Neut % (Auto) 68.4, Lymph % (Auto) 22.8, Isabella % (Auto) 6.5, Eos % (Auto) 1.6, Baso % (Auto) 0.4, Neut # (Auto) 6.7, Lymph # (Auto) 2.23, Isabella # (Auto) 0.64, Eos # (Auto) 0.16, Baso # (Auto) 0.04, Immature Gran # (Auto) 0.03,Absolute Nucleated RBC 0, Nucleated RBC % (auto) 0 02/05/23 16:40: PT 10.3, INR 1.0 Medications Ordered: Discontinued Medications Ceftriaxone Sodium (Ceftriaxone 1 Gm Inj) 1 gm IV ONCE ONE Stop: 02/05/23 17:48 Last Admin: 02/05/23 17:55 Dose: Not Given Documented By: GLADYS Sodium Chloride () 1,000 mls @ 999 mls/hr IV .Q1H1M ONE Stop: 02/05/23 18:05 Last Admin: 02/05/23 17:55 Dose: 999 mls/hr Documented By: GLADYS Ceftriaxone Sodium 1 gm/ (Sodium Chloride) 50 mls @ 100 mls/hr IV .Q30M ONE Stop: 02/05/23 18:29 Last Admin: 02/05/23 17:55 Dose: 100 mls/hr Documented By: GLADYS EKG Orders: EKG Orders 02/05/23 14:45 EKG ED Electrocardiogram Stat Radiology Orders: Radiology Orders 02/05/23 14:45 CT abdomen pelvis wo contrast Stat CT head/brain wo contrast Stat 02/05/23 16:52 XR chest 1V Stat Dictated By: Andreina Loredo DO Signed By: Andreina Loredo DO 02/06/23626 DD/ 56 TD/TT: 02/05/231956 Remediation Project Engineer: CLARA cc: CLARA; PCPNS* Andreina Loredo DO; SAM Conway P.HPGMHistory \\T\\ PhysicalFARABFarooq, [id number]:57:00P.HPGMAVAvailabl e for patient [id number]:28:18 [facility] m 2023-02-05 15:07:00 [id number]:07:00 [facility] [address] [place] [address] Emergency Department Document Signed Patient: Kassandra Chang Medical Record#: [id number] : 1935 Acct:[id number] Age/Sex: 87 / F Admit/Reg Date: 02/05/23 Loc: [id number] Room: [address] Report Number: [id number] Attending Dr: Andreina Loredo DO <Anthony Mckeon - Last Filed: 02/05/23 17:14> History of Present Illness Chief Complaint: Urogenital-Female Stated Complaint: UTI;Kitneys Primary Care Provider: SAM Conway Allergies/Adverse Reactions: acetaminophen [From Tylenol] Allergy (Intermediate, Verified 02/05/23 22:54) Rash Results/Orders - Results and Orders Result diagrams: 02/05/23 15:40 02/05/23 15:40 Attending - BRINA: Attending Note Attending Attestation Statement: I performed the substantial portion of the visit. reviewed the RESPIRATORY PHYSICIAN/PA's documentation and agree with the RESPIRATORY PHYSICIAN/PA's HPI, Exam, and assessment and plan of care. I had face to face time with the patient, my MDM: 87-year-old female with emesis, UTI though no signs of pyelonephritis on CT, JT with bump in creatinine from previous ED evaluation, and duodenitis by CT. Will admit for further workup, hydration, antiemetics. time spent: more than half of the total time spent performing the shared visit all aspects of: medical decision making <Thalia Holbrook - Last Filed: 02/05/23 23:07> Arrival - Arrival ED Triage Note: pt c/o generalized and bilateral leg weakness x 3 weeks and N/V x 1 day. pt recentlydiagnosed with UTI. pt denies chest pain or SOB. History of Present Illness Nursing note reviewed: Yes Source: patient, family Exam/History Limitations: no limitations Primary Care Provider: SAM Conway History of Present Illness: 87-year-old female history of CABG, hypertension, presents to the ED complaining of generalized weakness and feeling off balance x3 weeks, patient states was diagnosed with a UTI on 01/30, was started on Bactrim, patient states has been having nausea vomiting times 1 day. Patient reports 2 episodes of vomiting since yesterday. Patient reports decrease in appetite last several days. Patient is advised that her kidney function was worsening at her emergency room visit on 01/30. Patient denies any new swelling. Patient reports the feeling of being off balance, intermittent dizziness worse with changing positions, patient states generalized weakness worse to bilateral lower extremities. Patient denies chest pain, SOB, numbness, vision changes, neck or back pain, rash, sore throat, fever, chills, foreign travel, leg swelling, falls, or syncope. Patient is alert and oriented x3, answering questions appropriately, appears in no distress at this time, moves all extremities x4. GCS 15 Vital signs stable Review of Systems ROS: As reviewed in the HPI. All other systems reviewed are negative or normal. Family/Social History - Social History 1. How Often Do You Have a Drink Containing Alcohol: a. Never Physical Exam Triage Vital Signs: Temperature 36.8 C 02/05/23 14:36 Temperature Source Oral 02/05/23 14:36 Pulse Rate 65 02/05/23 14:36 Respiratory Rate 18 02/05/23 14:36 Blood Pressure 125/80 02/05/23 14:36 Blood Pressure Mean 95 02/05/23 14:36 O2 Sat by Pulse Oximetry 100 02/05/23 14:36 Oxygen Delivery Method 02/05/23 14:36 Physical Exam: CONSTITUTIONAL: No apparent distress SKIN: Warm, dry, no jaundice, hives or petechiae EYES: Pupils are equally round, extraocular movements intact, clear conjunctiva, non-icteric sclera HENT: Normocephalic, atraumatic, moist mucus membranes NECK: Nontender and supple with no nuchal rigidity, no lymphadenopathy, full range of motion PULMONARY: Clear to auscultation without wheezes, rhonchi, or rales, normal excursion, no accessory muscle use and no stridor CARDIOVASCULAR: Regular rate, rhythm, normal S1 and S2. No appreciated murmurs. Strong radial pulseswith intact distal perfusion GASTROINTESTINAL: Soft, non-tender, non-distended, no palpable masses, no rebound or guarding GENITOURINARY: No costovertebral angle tenderness to palpation MUSCULOSKELETAL: Extremities are nontender to palpation and have no gross deformity NEUROLOGIC: A/o x 3, GCS 15, normal mentation and speech. Moves all extremities x 4 without motor orsensory deficit PSYCHIATRIC: Normal mood and affect, thought process is clear and linear Results/Orders - Results and Orders Result diagrams: 02/05/23 16:40 02/05/23 15:40 Lab Testing Results 02/05/23 15:40: WBC Cancelled, RBC Cancelled, Hgb Cancelled, Hct Cancelled, MCV Cancelled, MCH Cancelled, MCHC Cancelled, RDW Coeff of Lillian Cancelled, Plt Count Cancelled, MPV Cancelled, Immature Gran % (Auto) Cancelled, Neut % (Auto) Cancelled, Lymph % (Auto) Cancelled, Isabella % (Auto) Cancelled,Eos % (Auto) Cancelled, Baso % (Auto) Cancelled, Neut # (Auto) Cancelled, Lymph # (Auto) Cancelled, Isabella # (Auto) Cancelled, Eos # (Auto) Cancelled, Baso # (Auto) Cancelled, Immature Gran # (Auto) Cancelled, Absolute Nucleated RBC Cancelled, Nucleated RBC % (auto) Cancelled 02/05/23 15:40: Sodium 133.0 L, Potassium 5.0, Chloride 101, Carbon Dioxide 22, Anion Gap 10, BUN 39H, Creatinine 2.43 H, Estimated Creat Clear Gas Appliance Installer, Estimated GFR 19 L, BUN/Creatinine Ratio 16, [id number], Calculated Osmolality 284.9, Calcium 9.1, Total Bilirubin 0.3, AST 14, ALT 12, Alkaline Phosphatase 72, Total Creatine Kinase 44 L, Total Protein 7.6, Albumin 4.3, Globulin 3.3, Albumin/Globulin Ratio 1.3 02/05/23 15:40: Troponin I High Sens 9 02/05/23 15:40: B-Natriuretic Peptide 114.3 H 02/05/23 16:00: Urine Color Yellow, Urine Clarity Cloudy A, Urine pH 5.5, Ur Specific [place] 1.015,Urine Protein Negative, Urine Glucose (UA) Negative, Urine Ketones Negative, Urine Blood Negative, Urine Nitrate Negative, Urine Bilirubin Negative, Urine Urobilinogen 0.2, Ur Leukocyte Esterase Small A, Urine WBC (Auto) 6-10 A, Urine RBC (Auto) None seen, Urine Casts (Auto) 6-10 A, U Epithel Cells (Auto) 11-25 A, Urine Bacteria (Auto) Rare 02/05/23 16:40: Troponin I High Sens 9 02/05/23 16:40: WBC 9.8, RBC 4.27, Hgb 11.5 L, Hct 36.4 L, MCV 85.20, MCH 26.9 L, MCHC 31.60 L, RDW Coeff of Lillian 16.3 H, Plt Count 314, MPV 10.8, Immature Gran % (Auto) 0.3, Neut % (Auto) 68.4, Lymph % (Auto) 22.8, Isabella % (Auto) 6.5, Eos % (Auto) 1.6, Baso % (Auto) 0.4, Neut # (Auto) 6.7, Lymph # (Auto) 2.23, Isabella # (Auto) 0.64, Eos # (Auto) 0.16, Baso # (Auto) 0.04, Immature Gran # (Auto) 0.03,Absolute Nucleated RBC 0, Nucleated RBC % (auto) 0 02/05/23 16:40: PT 10.3, INR 1.0 Medications Ordered: Calcium Carbonate (Calcium Carbonate 500 Mg Chew Tab) 500 mg PO BID@0900,2100 PRN PRN Reason: Heartburn Heparin Sodium (Porcine) (Heparin 5,000 Unit/1 Ml Inj) 5,000 unit SC Q12H [facility] Sodium Chloride () 1,000 mls @ 100 mls/hr IV .Q10H [facility] Stop: 02/06/23 08:29 Ceftriaxone Sodium 1 gm/ (Sodium Chloride) 50 mls @ 100 mls/hr IV Q24H [facility] Magnesium Hydroxide (Magnesium Hydroxide 30 Ml Udl) 30 ml PO DAILY PRN PRN Reason: 1st agent for Constipation Melatonin (Melatonin 5 Mg Tablet) 5 mg PO QHS PRN PRN Reason: Insomnia Nicotine Polacrilex (Nicotine 2 Mg Gum) 2 mg BUCCAL Q1H PRN PRN Reason: Nicotine craving/withdrawal Ondansetron HCl (Ondansetron Odt 4 Mg Tabdis) 4 mg PO Q8H PRN PRN Reason: Nausea Zinc Acetate/Diphenhydramine (Diphenhydramine/Zinc 28 Appl/28 Gm Tube) 1 appl TOPICAL QID PRN PRN Reason: Itching Discontinued Medications Ceftriaxone Sodium (Ceftriaxone 1 Gm Inj) 1 gm IV ONCE ONE Stop: 02/05/23 17:48 Last Admin: 02/05/23 17:55 Dose: Not Given Documented By: DD Sodium Chloride () 1,000 mls @ 999 mls/hr IV .Q1H1M ONE Stop: 02/05/23 18:05 Last Admin: 02/05/23 17:55 Dose: 999 mls/hr Documented By: DD Ceftriaxone Sodium 1 gm/ (Sodium Chloride) 50 mls @ 100 mls/hr IV .Q30M ONE Stop: 02/05/23 18:29 Last Admin: 02/05/23 17:55 Dose: 100 mls/hr Documented By: DD Morphine Sulfate (Morphine 2 Mg/Ml Inj) 2 mg IV ONCE ONE Stop: 02/05/23 20:17 Last Admin: 02/05/23 22:10 Dose: Not Given Documented By: BY Ondansetron HCl (Ondansetron 4 Mg/2 Ml Inj) 4 mg IV ONCE ONE Stop: 02/05/23 20:17 Last Admin: 02/05/23 22:11 Dose: Not Given Documented By: BY EKG Orders: EKG Orders 02/05/23 14:45 EKG ED Electrocardiogram Stat Radiology Orders: Radiology Orders 02/05/23 14:45 CT abdomen pelvis wo contrast Stat CT head/brain wo contrast Stat 02/05/23 16:52 XR chest 1V Stat MDM/COURSE Vital Signs Temperature 36.8 C 02/05/23 14:36 Pulse Rate 65 02/05/23 14:36 Respiratory Rate 18 02/05/23 14:36 Blood Pressure 125/80 02/05/23 14:36 O2 Sat by Pulse Oximetry 100 02/05/23 14:36 Temperature 36.8 C 02/05/23 15:42 Pulse Rate 55 L 02/05/23 22:00 Respiratory Rate 16 02/05/23 22:00 Blood Pressure 147/99 H 02/05/23 22:00 O2 Sat by Pulse Oximetry 100 02/05/23 22:00 - MDM Medical decision making narrative: LABS Abnormal Lab Results 02/05/23 02/05/23 02/05/23 15:40 15:40 15:40 WBC Cancelled RBC Cancelled Hgb Cancelled Hct Cancelled MCV Cancelled MCH Cancelled MCHC Cancelled RDW Coeff of Lillian Cancelled Plt Count Cancelled MPV Cancelled Immature Gran % (Auto) Cancelled Neut % (Auto) Cancelled Lymph % (Auto) Cancelled Isabella % (Auto) Cancelled Eos % (Auto) Cancelled Baso % (Auto) Cancelled Neut # (Auto) Cancelled Lymph # (Auto) Cancelled Isabella # (Auto) Cancelled Eos # (Auto) Cancelled Baso # (Auto) Cancelled Immature Gran # (Auto) Cancelled Absolute Nucleated RBC Cancelled Nucleated RBC % (auto) Cancelled PT INR Sodium 133.0 L Potassium 5.0 Chloride 101 Carbon Dioxide 22 Anion Gap 10 BUN 39 H Creatinine 2.43 H Estimated Creat Clear Gas Appliance Installer Estimated GFR 19 L BUN/Creatinine Ratio 16 Glucose 101 Calculated Osmolality 284.9 Calcium 9.1 Total Bilirubin 0.3 AST 14 ALT 12 Alkaline Phosphatase 72 Total Creatine Kinase 44 L Troponin I High Sens 9 B-Natriuretic Peptide Total Protein 7.6 Albumin 4.3 Globulin 3.3 Albumin/Globulin Ratio 1.3 Urine Color Urine Clarity Urine pH Ur Specific [place] Urine Protein Urine Glucose (UA) Urine Ketones Urine Blood Urine Nitrate Urine Bilirubin Urine Urobilinogen Ur Leukocyte Esterase Urine WBC (Auto) Urine RBC (Auto) Urine Casts (Auto) U Epithel Cells (Auto) Urine Bacteria (Auto) 02/05/23 02/05/23 02/05/23 15:40 16:00 16:40 WBC RBC Hgb Hct MCV MCH MCHC RDW Coeff of Lillian Plt Count MPV Immature Gran % (Auto) Neut % (Auto) Lymph % (Auto) Isabella % (Auto) Eos % (Auto) Baso % (Auto) Neut # (Auto) Lymph # (Auto) Isabella # (Auto) Eos # (Auto) Baso # (Auto) Immature Gran # (Auto) Absolute Nucleated RBC Nucleated RBC % (auto) PT INR Sodium Potassium Chloride Carbon Dioxide Anion Gap BUN Creatinine Estimated Creat Clear Estimated GFR BUN/Creatinine Ratio Glucose Calculated Osmolality Calcium Total Bilirubin AST ALT Alkaline Phosphatase Total Creatine Kinase Troponin I High Sens 9 B-Natriuretic Peptide 114.3 H Total Protein Albumin Globulin Albumin/Globulin Ratio Urine Color Yellow Urine Clarity Cloudy A Urine pH 5.5 Ur Specific [place] 1.015 Urine Protein Negative Urine Glucose (UA) Negative Urine Ketones Negative Urine Blood Negative Urine Nitrate Negative Urine Bilirubin Negative Urine Urobilinogen 0.2 Ur Leukocyte Esterase Small A Urine WBC (Auto) 6-10 A Urine RBC (Auto) None seen Urine Casts (Auto) 6-10 A U Epithel Cells (Auto) 11-25 A Urine Bacteria (Auto) Rare 02/05/23 02/05/23 16:40 16:40 WBC 9.8 RBC 4.27 Hgb 11.5 L Hct 36.4 L MCV 85.20 MCH 26.9 L MCHC 31.60 L RDW Coeff of Lillian 16.3 H Plt Count 314 MPV 10.8 Immature Gran % (Auto) 0.3 Neut % (Auto) 68.4 Lymph % (Auto) 22.8 Isabella % (Auto) 6.5 Eos % (Auto) 1.6 Baso % (Auto) 0.4 Neut # (Auto) 6.7 Lymph # (Auto) 2.23 Isabella # (Auto) 0.64 Eos # (Auto) 0.16 Baso # (Auto) 0.04 Immature Gran # (Auto) 0.03 Absolute Nucleated RBC 0 Nucleated RBC % (auto) 0 PT 10.3 INR 1.0 Sodium Potassium Chloride Carbon Dioxide Anion Gap BUN Creatinine Estimated Creat Clear Estimated GFR BUN/Creatinine Ratio Glucose Calculated Osmolality Calcium Total Bilirubin AST ALT Alkaline Phosphatase Total Creatine Kinase Troponin I High Sens B-Natriuretic Peptide Total Protein Albumin Globulin Albumin/Globulin Ratio Urine Color Urine Clarity Urine pH Ur Specific [place] Urine Protein Urine Glucose (UA) Urine Ketones Urine Blood Urine Nitrate Urine Bilirubin Urine Urobilinogen Ur Leukocyte Esterase Urine WBC (Auto) Urine RBC (Auto) Urine Casts (Auto) U Epithel Cells (Auto) Urine Bacteria (Auto) IMAGING Order (s): CT head/brain wo contrast CPT Code: 29618 Report Number: [id number] Reason for Exam: weak dizzy EXAMINATION: CT head/brain wo contrast CLINICAL INDICATION: Female, 87 years old with weak dizzy TECHNIQUE: Axial CT images from the skull base to the vertex without intravenous contrast. Coronal and sagittal reformatted images were created from the data set. One or more of the following dose reduction techniques were used: Automated exposure control, adjustment of the mA and/or kV according to patient size, and/or iterative reconstruction. COMPARISON: None FINDINGS: Intracranial: Senescent and chronic small vessel ischemic changes are present. No evidence of acute infarction, intracranial hemorrhage, mass or mass effect, or abnormal extra-axial fluid collection. The ventricles are normal in size, shape and position. Vascular: The larger dural venous sinuses are grossly normal. No significant atherosclerotic plaque. Sinuses: The visualized paranasal sinuses and mastoid air cells are predominantly clear. Bones: The osseous structures and orbits have no significant abnormalities. Soft tissue: No significant soft tissue abnormalities. IMPRESSION: Mild atrophy and deep white matter chronic small vessel changes with otherwise no acute abnormality. Order (s): CT abdomen pelvis wo contrast CPT Code: 69867 Report Number: [id number] Reason for Exam: N/V EXAMINATION: CT abdomen pelvis wo contrast CLINICAL INDICATION: Female, 87 years old with N/V TECHNIQUE: Thin section axial noncontrast contiguous images were obtained through the abdomen and pelvis followed by coronal and sagittal multiplanar reformations. One or more of the following dose reduction techniques were used: Automated exposure control, adjustment of the mA and/or kV according to patient size, and/or iterative reconstruction. COMPARISON: None FINDINGS: Lower Chest: Visualized lung bases are clear. Liver: Normal in size and contour. No focal lesions. Bile ducts are of normal caliber. Gallbladder: No stones, wall thickening, or pericholecystic fluid. Pancreas: Normal appearance without focal lesion. Spleen: Normal in size and contour. Adrenals: Normal configuration. Kidneys and ureters: Normal size and contour. Several small, 3 to 5 mm calculi noted within left renal mid and lower pole calyces. There is no ureteral calculus or hydronephrosis. Bladder/Reproductive Organs: The bladder is normal in appearance. Unremarkable reproductive organs. There is no pelvic mass or fluid collection. Bowel: Moderate hiatal hernia. Mild thickening inflammation of the duodenum with mild adjacent inflammatory change. There is no fluid collection or free air. Loops of bowel without additional thickening or dilatation. Normal appendix. Diverticuli are seen scattered throughout the sigmoid colon with no wall thickening or adjacent inflammation. There is no free intraperitoneal air or fluid. Lymph nodes: There are no pathologically enlarged abdominopelvic lymph nodes. Retroperitoneum: There is no retroperitoneal adenopathy, mass, or fluid collection. Abdominal aortic atherosclerosis without aneurysm. Abdominal wall: Abdominal wall is intact with no hernia or defect. 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 There is resultant scoliotic curvature and associated spondylosis of the lumbar spine. There is no visualized acute osseous abnormality. IMPRESSION: 1. Mild thickening and inflammation of the duodenum suggestive of duodenitis. There is no adjacent fluid collection or free air. 2. Moderate hiatal hernia. 3. Diverticulosis without evidence of diverticulitis. 4. Several small, nonobstructing left renal calculi. MDM: EKG shows sinus Michael, rate 53 [place] 173, QRS 131, QTC 445, right bundle-branch block, EKG seen interpreted by Dr. Mckeon CMP shows creatinine 2.43, BUN 39, CK 44, troponin negative x2, BNP 114, UA +leukocyte + WBC, CBC shows anemia 11.5/36.4, otherwise unremarkable, coags WNL CT abdomen pelvis shows mild thickening inflammation duodenum suggestive of duodenitis, there is no adjacent fluid collection or free air Moderate hiatal hernia Diverticulosis without evidence of diverticulitis Several small nonobstructing left renal calculi CT head shows mild atrophy and deep white matter chronic small-vessel changes otherwise no acute abnormality Patient has her blood work results from 01/30 which shows creatinine at 1.75, patient has a acute onchronic kidney injury patient given Rocephin, 1 L NS bolus in ED. Discussed with ; patient will be admitted at this time. Differential Diagnosis associated with patient's presentation includes, but is not limited to: Anemia, ACS, CVA/TIA, UTI, pyelonephritis, fluid overload, acute on chronic kidney disease, metabolic imbalance, vertigo, dehydration, bowel obstruction Escalation of care including admission/observation considered: Yes Discussion of management with other providers include: Hospitalist Independent interpretations includes: Radiology images were reviewed from the radiologists interpretation. Additional patient history obtained from: Patient, family Review of external non-ED record: Previous outside hospital records/results Diagnostic Tests considered but not performed: None Prescription medications considered but not given: None Chronic conditions affecting care: Hypertension, CAD Social determinants of health significantly affecting care include: None Treatment disposition: Patient to be admitted Medications Reviewed. Following prescriptions provided: Not applicable Patient Full Code. Shared Decisions making with patient: Patient agrees with plan 02/05/23 20:44 Discharge Plan - Discharge Clinical Impression: UTI (urinary tract infection), JT (acute kidney injury), Generalized weakness Disposition: Admitted as Inpatient Condition: Good - Discharge Data Time Seen by Provider: 02/05/23 14:22 Dictated By: Thalia Holbrook NP Signed By: Thalia Holbrook NP 02/05/23 2307 Anthony Mckeon MD 02/09/23 1614 DD/ 1507 TD/TT: 02/05/23 1507 Remediation Project Engineer: DAYNA cc: PCPUNK* PCP,UNKNOWN CHOLO Physician [id number] [id number].EDAVAvailable for patient [id number] [facility]
[2023-10-11 01:00] LABS: Absolute Lymphocytes (CBC) 1.2 K/uL (0.7-4.9); Hematocrit 36.3 % (36.0-45.0); Lymphocytes % 15.4 % (15.3-44.8); MCV 83.2 fL (80-100); MPV 9.1 fL (7.6-11.3); Platelets 246 thou/uL (152-406); RBC Red Blood Cell Count 4.36 M/uL (3.86-4.86)
[2023-10-11 01:02] LABS: Protime INR 1.14
[2023-10-11 01:10] LABS: Specific Gravity 1.018 (1.005-1.030); Urine Bacteria <20 /HPF (<20); Urine Bilirubin NEGATIVE (Negative); Urine Blood Negative (Negative); Urine Clarity Extremely Turbid (Clear); Urine Color Yellow (Yellow); Urine Glucose NEGATIVE (Negative); Urine Mucus Slight /HPF (None Seen); Urine Protein TRACE (Negative); Urine Urobilinogen Normal (Normal); Urine WBC Clump Few /HPF (None Seen); Urine pH 5.5 (5.0-7.0)
[2023-10-11 01:18] LABS: Albumin 3.3 g/dL (3.4-5.0); Bilirubin Direct 0.2 mg/dL (0-0.2); Bilirubin Indirect, Calculated 0.4 mg/dL (0.2-0.8); Bilirubin Total 0.6 mg/dL (0.2-1.0); Protein, Total 8.4 g/dL (6.4-8.2); Thyroid Stimulating Hormone 1.73 uIU/mL (0.358-3.740); Troponin High Sensitivity 44.4 pg/mL (<58.9)
[2023-10-11 01:24] LABS: Magnesium 2.2 mg/dL (1.6-2.4); Potassium 4.1 mEq/L (3.5-5.1)
[2023-10-11] MEDS ORDERED: CEFTRIAXONE 1000 MG/VIAL ONE ×2 (01:37→09:39)
[2023-10-11] MEDS ORDERED: NA CHLORIDE 0.9% 100 ML ONE (01:38)
[2023-10-11] MEDS ORDERED: NA CHLORIDE 0.9% 1,000 ML ONE (01:51)
--- NOTE | 2023-10-11 01:52 | EDPHYS ---
Physician Documentation [facility] Name: Kassandra Chang Age: 87 yrs Sex: Female : 1935 Arrival Date: 10/10/2023 Time: 23:43 Bed 7 Private MD: ED Physician [place] HPI: 10/10 23:50 This 87 yrs old Female presents to ER via Unassigned with complaints of sp4 General Weakness. 10/11 01:35 Pleasant 87-year-old woman presents from home via EMS for generalized weakness. Patient sp4 developed some degree of generalized weakness starting in the morning of 10/10/2023. His family reports that patient may have urinary tract infection . Patient has history of CHF, hypertension, myocardial infarction. . Historical: - Allergies: 00:00 ACETAMINOPHEN; nw1 00:00 Lisinopril; nw1 00:00 Tylenol; nw1 00:00 Warfarin; nw1 - Home Meds: 00:00 Metoprolol Tartrate Oral [Active]; valsartan oral [Active]; nw1 - PMHx: 00:00 CHF; Hypertension; Myocardial infarction; nw1 - PSHx: 00:00 back; nw1 - Immunization history:: Adult Immunizations up to date. - Social history:: Smoking status: Patient denies any tobacco usage or history of. - Family history:: not pertinent. ROS: 01:35 Constitutional: Negative for fever, chills, and weight loss, positive generalized sp4 weakness 01:35 All other systems are negative, Exam: 01:35 Constitutional: This is a well developed, well nourished patient who is awake, alert, sp4 and in no acute distress. Head/Face: Normocephalic, atraumatic. Eyes: Pupils equal round and reactive to light, extra-ocular motions intact. Lids and lashes normal. Conjunctiva and sclera are not injected. Cornea within normal limits. Periorbital areas with no swelling, redness, or edema. ENT: Nares patent. No nasal discharge, no septal abnormalities noted. Tympanic membranes are normal and external auditory canals are clear. Oropharynx with no redness, swelling, or masses, exudates, or evidence of obstruction, uvula midline. Mucous membranes moist. Neck: Trachea midline, no thyromegaly or masses palpated, and no cervical lymphadenopathy. Supple, full range of motion without nuchal rigidity, or vertebral point tenderness. Chest/axilla: Normal chest wall appearance and motion. Nontender with no deformity. No lesions are appreciated. Cardiovascular: Regular rate and rhythm with a normal S1 and S2. No gallops, murmurs, or rubs. Normal PMI, no JVD. No pulse deficits. Respiratory: Lungs have equal breath sounds bilaterally, clear to auscultation and percussion. No rales, rhonchi or wheezes noted. No increased work of breathing, no retractions or nasal flaring. Abdomen/GI: Soft, non-tender, with normal bowel sounds. No distension or tympany. No guarding or rebound. No evidence of tenderness throughout. Back: No spinal tenderness. No costovertebral tenderness. There is sacral decubitus ulcer that is covered by the wound VAC. Skin: Warm, dry with normal turgor. Normal color with no rashes, no lesions, and no evidence of cellulitis. MS/ Extremity: Pulses equal, no cyanosis. Neurovascular intact. Full, normal range of motion. Neuro: Awake and alert, GCS 15, oriented to person, place, time, and situation. Cranial nerves II-XII grossly intact. Motor strength 5/5 in all extremities. Sensory grossly intact. Psych: Awake, alert, with orientation to person, place and time. Behavior, mood, and affect are within normal limits 01:38 ECG was reviewed by the Attending Physician. Sinus bradycardia at the rate of 56, right sp4 bundle branch block, otherwise unremarkable 01:38 Constitutional: The patient appears Frail elderly female sp4 Vital Signs: 10/10 23:56 BP 124 / 76; Pulse 62; Resp 15; Temp 98.9(O); Pulse Ox 95% on R/A; Weight 58.97 kg; nw1 Height 5 ft. 0 in. ; Pain 0/10; 10/11 01:42 BP 114 / 48; Pulse 55; Resp 15 S; Pulse Ox 96% on R/A; nw1 04:00 BP 128 / 44; Pulse 51; Resp 17; Pulse Ox 100% on R/A; nw1 06:15 BP 130 / 51; Pulse 62; Resp 16; Pulse Ox 95% on R/A; nw1 10/10 23:56 Body Mass Index 25.39 (58.97 kg, 152.4 cm) nw1 10/10 23:56 Pain Scale: Adult nw1 NIH Stroke Scale Scores: 10/10 23:51 NIHSS Score: 0 sp4 Janet Coma Score: 23:51 Eye Response: spontaneous(4). Motor Response: obeys commands(6). Verbal Response: sp4 oriented(5). Total: 15. 10/11 00:29 Eye Response: spontaneous(4). Motor Response: obeys commands(6). Verbal Response: nw1 oriented(5). Total: 15. MDM: 10/10 23:57 Patient medically screened. sp4 10/11 01:39 ED course: CT - EXAM: CT Head Without Intravenous Contrast CLINICAL HISTORY: The sp4 patient is 87 years old and is Female; Generalized weakness TECHNIQUE: Axial computed tomography images of the head/brain without intravenous contrast. Sagittal and coronal reformatted images were created and reviewed. This CT exam was performed using one or more of the following dose reduction techniques: automated exposure control, adjustment of the mA and/or kV according to patient size, and/or use of iterative reconstruction technique. COMPARISON: CT Head dated April 19 2021 FINDINGS: BRAIN: There is diffuse cerebral atrophy present, consistent with this patient's age. There is patchy hypoattenuation of the deep white matter which is non-specific, but most likely owing to chronic small vessel ischemic change in a patient of this age group. No intracranial hemorrhage, mass effect, midline shift is seen. There are no extra-axial fluid collections. The pepper-white differentiation is maintained. There is no cerebral edema. VENTRICLES: Unremarkable. No ventriculomegaly. BONES/JOINTS: No acute fracture. SOFT TISSUES: Unremarkable. SINUSES: Unremarkable as visualized. No acute sinusitis. MASTOID AIR CELLS: Unremarkable as visualized. No mastoid effusion. ORBITS: Unremarkable as visualized. IMPRESSION: Age-related atrophy and chronic white matter ischemic changes, with no evidence of an acute intracranial abnormality. . ED course: EXAM: XR Chest, 1 View CLINICAL HISTORY: The patient is 87 years old and is Female; Gen weakness TECHNIQUE: Frontal view of the chest. COMPARISON: No relevant prior studies available. FINDINGS: Lungs: Unremarkable. No consolidation. Pleural space: Unremarkable. No pneumothorax. Heart: Unremarkable. Mediastinum: Unremarkable. Normal mediastinal contour. Bones/joints: Median sternotomy wires. IMPRESSION: No acute findings in the chest. . 01:51 Differential Diagnosis altered mental status, sepsis, flu. Data reviewed: vital signs, sp4 nurses notes, lab test result(s), EKG, radiologic studies, CT scan, plain films. 10/10 23:50 Order name: BMP; Complete Time: 01:24 4 10/10 23:50 Order name: Blood Culture Adult (2) 4 10/10 23:50 Order name: CBC with Diff; Complete Time: :28 [facility] 10/10 23:50 Order name: CPK; Complete Time: 01:24 sp4 10/10 23:50 Order name: D-Dimer; Complete Time: :23 4 10/10 23:50 Order name: Hepatic Function; Complete Time: :24 [facility] 10/10 23:50 Order name: Lipase; Complete Time: :24 [facility] 10/10 23:50 Order name: Magnesium; Complete Time: :24 [facility] 10/10 23:50 Order name: NT PRO-BNP; Complete Time: :24 [facility] 10/10 23:50 Order name: PT-INR; Complete Time: 01:23 4 10/10 23:50 Order name: Ptt, Activated; Complete Time: :23 4 10/10 23:50 Order name: Troponin HS; Complete Time: :24 [facility] 10/10 23:50 Order name: Urinalysis W/Microscopic; Complete Time: 01:23 4 10/10 23:50 Order name: TSH; Complete Time: :24 [facility] 10/10 23:50 Order name: T4 Free; Complete Time: 01:24 [facility] 10/11 01:20 Order name: Urine Culture EDPR 10/11 01:51 Order name: SARS RAPID; Complete Time: 05:54 sp4 10/11 01:51 Order name: Influenza Screen (a \T\ B); Complete Time: 05:54 sp4 10/11 02:43 Order name: CBC with Automated Diff EDMS 10/11 02:43 Order name: CBC with Automated Diff EDMS 10/11 02:43 Order name: Comprehensive Metabolic Panel EDMS 10/11 02:43 Order name: Comprehensive Metabolic Panel EDMS 10/11 02:43 Order name: Troponin High Sensitivity EDMS 10/11 02:43 Order name: Troponin High Sensitivity; Complete Time: 05:54 EDMS 10/11 02:43 Order name: Troponin High Sensitivity EDMS 10/11 02:43 Order name: Troponin High Sensitivity EDPR 10/11 07:25 Order name: C-Reactive Protein EDPR 10/10 23:50 Order name: XRAY CXR (1 view) sp4 10/10 23:50 Order name: CT Head Brain wo Cont sp4 10/11 13:30 Order name: US EDPR 10/10 23:50 Order name: EKG; Complete Time: 23:50 sp4 10/10 23:50 Order name: Cardiac monitoring; Complete Time: 23:56 sp4 10/10 23:50 Order name: EKG - Nurse/Tech; Complete Time: 00:40 sp4 10/10 23:50 Order name: IV Saline Lock; Complete Time: 23:56 sp4 10/10 23:50 Order name: Labs collected and sent; Complete Time: 23:56 sp4 10/10 23:50 Order name: O2 Per Protocol; Complete Time: 23:56 sp4 10/10 23:50 Order name: O2 Sat Monitoring; Complete Time: 23:56 sp4 EC:38 Rate is 56 beats/min. Rhythm is regular, Sinus bradycardia. QRS Desmet is Normal. WI sp4 interval is normal. QRS interval is prolonged. QT interval is normal. No Q waves. T waves are Normal. No ST changes noted. Clinical impression: No evidence of ischemia. Interpreted by me. Reviewed by me. Administered Medications: 01:41 Drug: Rocephin - Rocephin (cefTRIAXone) IVPB 1 grams IVPB once over 30 mins; (mix in 50 nw1 mL NS) Route: IVPB; Infused Over: 30 mins; Site: right forearm; 01:54 Drug: NS 0.9% IV 1000 ml IV at 75 ml/hr continuous Route: IV; Rate: 75 ml/hr; Site: la4 right forearm; Disposition Summary: 10/11/23 01:51 Hospitalization Ordered Notes: Hospitalization Status: Observation sp4 Provider: Ji Wilson sp4 Condition: Stable sp4 Problem: new sp4 Symptoms: have improved sp4 Bed/Room Type: Standard sp4 Location: [facility] ER HOLD(10/11/23 02:28) cg Room Assignment: ERHOLD-(01/15/24 02:28) cg Diagnosis - Dehydration sp4 - Acute on chronic renal insufficiency, moderate dehydration, urinary tract sp4 infection, generalized weakness, - Other specified viral diseases sp4 - Acute COVID-19 sp4 Forms: - Medication Reconciliation Form sp4 - SBAR form sp4 - Leadership Thank You Letter sp4 NIH Stroke Scale - NIH Stroke Score Date: 10/10/2023 Time: 23:51 Total Score = 0 10. Dysarthria (speech clarity - read or repeat words) - 0(Normal) 11. Extinction and Inattention (visual/tactile/auditory/spatial/personal) - 0(No abnormality) 1a. Level of Consciousness (LOC) - 0(Alert) 1b. Level of Consciousness (LOC) (Month \T\ Age) - 0(Both) 1c. LOC Commands (Open \T\ Closes Eyes/Ticket Agent) - 0(Both) 2. Best Gaze (Lateral Gaze Paresis) - 0(Normal) 3. Visual Field Loss - 0(No visual loss) 4. Facial Palsy - 0(Normal) 5a. Left Arm: Motor (10-second hold) - 0(No drift) 5b. Right Arm: Motor (10-second hold) - 0(No drift) 6a. Left Leg: Motor (5-second hold - always test supine) - 0(No drift) 6b. Right Leg: Motor (5-second hold - always test supine) - 0(No drift) 7. Limb Ataxia (finger/nose \T\ heel/pa - test with eyes open) - 0(Absent) 8. Sensory Loss (pinprick arms/legs/face) - 0(Normal) 9. Best Language: Aphasia (description/naming/reading) - 0(No aphasia) Initials: sp4 Signatures: Dispatcher [employer] Xi Taylor RN RN cg Potepalov, Sergey, MD MD sp4 Petar Henao RN RN la4 La Smith RN RN nw1 Corrections: (The following items were deleted from the chart) 01:51 Telemetry/MedSurg (observation) sp4 01:51 sp4
--- NOTE | 2023-10-11 01:52 | ER ---
Nurse's Notes [facility] Name: Kassandra Chang Age: 87 yrs Sex: Female : 1935 Arrival Date: 10/10/2023 Time: 23:43 Bed 7 Private MD: Diagnosis: Dehydration;Acute on chronic renal insufficiency, moderate dehydration, urinary tract infection, generalized weakness,;Other specified viral diseases;Acute COVID-19 Presentation: 10/10 23:56 Chief complaint: EMS states: Gen weakness x 2 days with loss of appetite. History of nw1 UTI. Pt resides at home with family. Pt states " I don't know why I am her, I am fine and they are over reacting." 0 s/s of acute distress noted. Pt transferred to [facility] with x2 extensive assist. Coronavirus screen: Client denies travel out of the [place] in the last 14 days. At this time, the client does not indicate any symptoms associated with coronavirus-19. Ebola Screen: Patient negative for fever greater than or equal to 101.5 degrees Fahrenheit, and additional compatible Ebola Virus Disease symptoms Patient denies exposure to infectious person. Patient denies travel to an Ebola-affected area in the 21 days before illness onset. No symptoms or risks identified at this time. Initial Sepsis Screen: Does the patient meet any 2 criteria? No. Patient's initial sepsis screen is negative. Does the patient have a suspected source of infection? No. Patient's initial sepsis screen is negative. Risk Assessment: Do you want to hurt yourself or someone else? Patient reports no desire to harm self or others. Onset of symptoms was October 08, 2023. 23:56 Method Of Arrival: EMS: [facility] nw1 23:56 Acuity: ERICA 3 nw1 Triage Assessment: 10/11 00:00 General: Appears in no apparent distress. comfortable, well groomed, well developed, nw1 Behavior is calm, cooperative, appropriate for age. Pain: Denies pain. Neuro: Level of Consciousness is awake, alert, obeys commands, Oriented to person, place, time, situation. Cardiovascular: No deficits noted. Denies chest pain, diaphoresis, fatigue, lightheadedness, nausea, palpitations, shortness of breath, syncope, vomiting. Respiratory: No deficits noted. Airway is patent Trachea midline Respiratory effort is even, unlabored, Respiratory pattern is regular, symmetrical. GI: No deficits noted. No signs and/or symptoms were reported involving the gastrointestinal system. Abdomen is non-distended, Bowel sounds present X 4 quads. Abd is soft and non tender X 4 quads. : No deficits noted. No signs and/or symptoms were reported regarding the genitourinary system. Parent/caregiver report the patient having history of UTI's. Derm: No deficits noted. No signs and/or symptoms reported regarding the dermatologic system. Musculoskeletal: generalized weakness. Historical: - Allergies: 00:00 ACETAMINOPHEN; nw1 00:00 Lisinopril; nw1 00:00 Tylenol; nw 00:00 Warfarin; nw1 - Home Meds: 00:00 Metoprolol Tartrate Oral [Active]; valsartan oral [Active]; nw - PMHx: 00:00 CHF; Hypertension; Myocardial infarction; nw - PSHx: 00:00 back; nw1 - Immunization history:: Adult Immunizations up to date. - Social history:: Smoking status: Patient denies any tobacco usage or history of. - Family history:: not pertinent. Screenin:29 [facility] ED Fall Risk Assessment (Adult) History of falling in the last 3 months, nw1 including since admission No falls in past 3 months (0 pts) Confusion or Disorientation No (0 pts) Intoxicated or Sedated No (0 pts) Impaired Gait Yes (1 pt) Mobility Assist Device Used Yes (1 pt) Altered Elimination No (0 pt) Score/Fall Risk Level 3 or more points = High Risk Oriented to surroundings, Maintained a safe environment, Educated pt \\T\\ family on fall prevention, incl call for assistance when getting out of bed, Assessed \\T\\ reinforced patient's understanding of fall precautions, Provided non-skid footwear, Hourly rounding (assess needs \\T\\ fall precautionary measures) done, Used ambulatory aids as needed (educated on \\T\\ assisted with). Abuse screen: Denies threats or abuse. Denies injuries from another. Nutritional screening: No deficits noted. Tuberculosis screening: No symptoms or risk factors identified. Assessment: 00:29 Reassessment: See triage assessment. General: Appears in no apparent distress. nw1 comfortable, Behavior is calm, cooperative, appropriate for age. Cardiovascular: No deficits noted. Vital Signs: 10/10 23:56 BP 124 / 76; Pulse 62; Resp 15; Temp 98.9(O); Pulse Ox 95% on R/A; Weight 58.97 kg; nw1 Height 5 ft. 0 in. ; Pain 0/10; 10/11 01:42 BP 114 / 48; Pulse 55; Resp 15 S; Pulse Ox 96% on R/A; nw1 04:00 BP 128 / 44; Pulse 51; Resp 17; Pulse Ox 100% on R/A; nw1 06:15 BP 130 / 51; Pulse 62; Resp 16; Pulse Ox 95% on R/A; nw1 10/10 23:56 Body Mass Index 25.39 (58.97 kg, 152.4 cm) nw10/10 23:56 Pain Scale: Adult nw1 [place] Coma Score: 10/10 23:51 Eye Response: spontaneous(4). Motor Response: obeys commands(6). Verbal Response: sp4 oriented(5). Total: 15. 10/11 00:29 Eye Response: spontaneous(4). Motor Response: obeys commands(6). Verbal Response: nw1 oriented(5). Total: 15. NIH Stroke Scale Scores: 10/10 23:51 NIHSS Score: 0 sp4 ED Course: 23:48 Patient arrived in ED. jj6 23:49 Rich [place] MD is Attending Physician. sp4 23:52 La Smith, RODY is Primary Nurse. nw10/11 00:00 Triage completed. nw1 00:00 Arm band placed on right wrist. Urine obtained. Labs ordered per protocol. nw1 00:28 XRAY CXR (1 view) In Process Unspecified. EDMS 00:29 Patient has correct armband on for positive identification. Placed in gown. Bed in low nw1 position. Call light in reach. Side rails up X2. Adult w/ patient. Provided Education on: POC. Client placed on continuous cardiac and pulse oximetry monitoring. NIBP monitoring applied. panel monitor on. Pulse ox on. NIBP on. Door closed. Visitors limited. Warm blanket given. 00:29 No provider procedures requiring assistance completed. Inserted saline lock: 20 gauge nw1 in right forearm, using aseptic technique. Blood collected. 00:40 CT Head Brain wo Cont Sent. la4 00:44 CT Head Brain wo Cont In Process Unspecified. EDMS 01:50 Ji Wilson MD is Hospitalizing Provider. sp4 05:31 Troponin High Sensitivity Sent. nw1 05:31 Comprehensive Metabolic Panel Sent. nw1 05:31 Comprehensive Metabolic Panel Sent. nw1 05:31 Troponin High Sensitivity Sent. nw1 05:31 Troponin High Sensitivity Sent. nw1 05:32 CBC with Automated Diff Sent. nw1 05:32 CBC with Automated Diff Sent. nw1 Administered Medications: 01:41 Drug: Rocephin - Rocephin (cefTRIAXone) IVPB 1 grams IVPB once over 30 mins; (mix in 50 nw1 mL NS) Route: IVPB; Infused Over: 30 mins; Site: right forearm; 01:54 Drug: NS 0.9% IV 1000 ml IV at 75 ml/hr continuous Route: IV; Rate: 75 ml/hr; Site: la4 right forearm; Medication: 00:29 VIS not applicable for this client. nw1 Outcome: 01:51 Decision to Hospitalize by Provider. sp4 14:13 Patient left the ED. ph NIH Stroke Scale - NIH Stroke Score Date: 10/10/2023 Time: 23:51 Total Score = 0 10. Dysarthria (speech clarity - read or repeat words) - 0(Normal) 11. Extinction and Inattention (visual/tactile/auditory/spatial/personal) - 0(No abnormality) 1a. Level of Consciousness (LOC) - 0(Alert) 1b. Level of Consciousness (LOC) (Month \\T\\ Age) - 0(Both) 1c. LOC Commands (Open \\T\\ Closes Eyes/Vocational Services Specialist) - 0(Both) 2. Best Gaze (Lateral Gaze Paresis) - 0(Normal) 3. Visual Field Loss - 0(No visual loss) 4. Facial Palsy - 0(Normal) 5a. Left Arm: Motor (10-second hold) - 0(No drift) 5b. Right Arm: Motor (10-second hold) - 0(No drift) 6a. Left Leg: Motor (5-second hold - always test supine) - 0(No drift) 6b. Right Leg: Motor (5-second hold - always test supine) - 0(No drift) 7. Limb Ataxia (finger/nose \\T\\ heel/pa - test with eyes open) - 0(Absent) 8. Sensory Loss (pinprick arms/legs/face) - 0(Normal) 9. Best Language: Aphasia (description/naming/reading) - 0(No aphasia) Initials: sp4 Signatures: Dispatcher [employer] Catherine Monroy, RN RN Mercy Lan6 Rich [place] MD MD sp4 Petar Henao RN RN la4 La Smith RN RN nw1
[2023-10-11] MEDS ORDERED: ONDANSETRON 4 MG/2 ML VIAL IV PRN (02:37)
[2023-10-11] MEDS ORDERED: ACETAMINOPHEN 500 MG TAB PO PRN (02:37)
[2023-10-11] MEDS ORDERED: NA CHLORIDE 0.9% 1,000 ML IV SCH ×2 (03:00→12:38)
--- NOTE | 2023-10-11 03:44 | P.HP ---
Certification for Inpatient Patient admitted to: Observation With expected LOS: <2 Midnights Practitioner: I am a practitioner with admitting privileges, knowledge of patient current condition, hospital course, and medical plan of care. Services: Services provided to patient in accordance with Admission requirements found in Title 42 Section 412.3 of the Code of Federal Regulations Patient History Date of Service: 10/11/23 Reason for admission: Generalized weakness/UTI History of Present Illness: 87-year-old female with past medical history of hypertension, hyperlipidemia, history of [place], history of valve surgery but patient does not remember what exactly they did and she is not on any anticoagulation who came to ER with generalized weakness and fatigue. Denies any chest pain or shortness of breath. Has subjective fever but and chills but denies any headache. No nausea vomiting diarrhea. Patient is a poor historian hence most of the history is obtained from the chart review and also talking with the ER physician. Patient was assessed in the ER and found to have dehydration and UTI and was admitted for further management Allergies acetaminophen [From Tylenol] Allergy (Verified 08/30/19 15:41) Unknown lisinopril Allergy (Verified 08/30/19 15:41) Unknown warfarin sodium [From Coumadin] Allergy (Verified 08/30/19 15:41) Unknown Home medications list reviewed: Yes - Past Medical/Surgical History Past Medical History: Reviewed- Non-Contributory Past Surgical History: Reviewed- Non-Contributory - Family History Family History: Reviewed- Non-Contributory - Social History Smoking Status: Never smoker Review of Systems 10-point ROS is otherwise unremarkable General: Fever, Chills, Weakness, Malaise Eyes: Unremarkable ENT: Unremarkable Respiratory: Unremarkable Cardiovascular: Unremarkable Gastrointestinal: Unremarkable Genitourinary: Unremarkable Musculoskeletal: Unremarkable Neurological: Unremarkable Physical Examination - Vital Signs Temperature: 99.2 F Blood Pressure: 138/78 Pulse: 82 Respirations: 18 Pulse Ox (%): 97 - Physical Exam General: Alert, In no apparent distress, Cooperative HEENT: Atraumatic, Normocephalic Neck: Supple, No LAD Respiratory: Clear to auscultation bilaterally, Normal air movement Cardiovascular: No edema, Regular rate/rhythm, Normal S1 S2 Capillary refill: <2 Seconds Gastrointestinal: Normal bowel sounds, Soft and benign, W/out hepatosplenomegaly Musculoskeletal: No clubbing, No swelling Integumentary: No rashes, No breakdown Neurological: Normal speech, Normal tone, Sensation intact Lymphatics: No axilla or inguinal lymphadenopathy - Studies Laboratory Data (last 24 hrs) 10/10/23 10/10/23 10/10/23 00:23 00:23 00:23 WBC 7.80 Hgb 12.2 Hct 36.3 Plt Count 246 PT 12.5 INR 1.14 APTT 27.8 Sodium 133 L Potassium 4.1 BUN 41 H Creatinine 1.93 H Glucose 115 H Magnesium 2.2 Total Bilirubin 0.6 AST 36 ALT 57 H Alkaline Phosphatase 84 Lipase 104 H Assessment and Plan - Problems (Diagnosis) (1) UTI (urinary tract infection) Current Visit: Yes Status: Acute Plan: Start on Rocephin Will obtain urine culture Will change antibiotic sensitivity Monitor closely (2) Dehydration Current Visit: Yes Status: Acute Plan: Started on IV hydration Electrolytes monitor and replace accordingly (3) Acute renal insufficiency Current Visit: Yes Status: Acute Plan: Renal parameters monitored Does not know baseline renal function Started on IV hydration Will monitor renal parameters Nephrology consult if renal parameters still elevated (4) Hyponatremia Current Visit: Yes Status: Acute Plan: IV hydration Monitor electrolytes and replace accordingly (5) Hypertension Current Visit: Yes Status: Chronic Plan: Continue home medications Patient is on metoprolol and valsartan Patient does not know the dosage Will reconcile when verified (6) COVID-19 Current Visit: Yes Status: Acute Plan: COVID-positive Will start on Decadron Will obtain inflammatory markers Plan to discharge in: 48 Hours - Advance Directives Does patient have a Living Will: No Does patient have a Durable POA for Healthcare: No - Code Status/Comfort Care Code Status: Full Code Time Spent Managing Pts Care (In Minutes): 54
[2023-10-11 04:27] LABS: SARS-CoV-2 Antigen Rapid Res Positive (Negative)
[2023-10-11 06:48] VITALS: BMI 25.4
[2023-10-11] MEDS ORDERED: PNEUMOCOCCAL VACCINE 0.5 ML IMVAC ONE (08:00)
[2023-10-11] MEDS ORDERED: dexAMETHasone 10 MG/ML VIAL IV SCH (09:00)
[2023-10-11] MEDS ORDERED: CEFTRIAXONE 1,000 MG in NA CHLORIDE 0.9% 50 ML IVPB SCH (09:00)
--- NOTE | 2023-10-11 09:13 | P.DS ---
Admission Date: 10/11/23 Discharge Date: 10/11/23 Disposition: ROUTINE DISCHARGE Discharge Condition: FAIR Reason for Admission: Generalized weakness/UTI - Problems (1) JT (acute kidney injury) Current Visit: Yes Status: Acute (2) COVID-19 Current Visit: Yes Status: Acute (3) UTI (urinary tract infection) Current Visit: Yes Status: Acute (4) Hypertension Current Visit: Yes Status: Chronic Brief History of Present Illness: 87-year-old female with past medical history of hypertension, hyperlipidemia, history of [place], history of valve surgery came to ER with generalized weakness and fatigue. She denied any chest pain or shortness of breath. Has subjective fever but and chills but denies any headache. No nausea vomiting diarrhea. Patient was assessed in the ER and found to have dehydration and UTI and was admitted for further management Hospital Course: Patient placed under observation on the medical floor and briefly hydrated with IV fluid. Chest x-ray is clear and patient is asymptomatic from the COVID-19 infection. UA suggested the presence of UTI, patient's symptoms improved with IV Rocephin. She is stable on room air, ambulatory and tolerating diet. Patient is discharged with oral cefpodoxime to continue treatment for UTI. She was seen and evaluated by pulmonary Dr. Meredith, no medications recommended for COVID-19 as patient is asymptomatic. Vital Signs/Physical Exam: Temp Pulse Resp BP Pulse Ox 99.2 F 82 18 138/78 97 10/11/23 06:08 10/11/23 06:08 10/11/23 06:08 10/11/23 06:08 10/11/23 06:08 General: Alert, In no apparent distress, Oriented x3 HEENT: Mucous membr. moist/pink Neck: Supple, JVD not distended Respiratory: Clear to auscultation bilaterally, Normal air movement Cardiovascular: No edema, Regular rate/rhythm, Normal S1 S2, No murmurs Gastrointestinal: Normal bowel sounds, Soft and benign, Non-distended, No tenderness Musculoskeletal: No swelling Integumentary: No rashes, No cyanosis Neurological: Normal strength at 5/5 x4 extr Laboratory Data at Discharge: WBC 7.80 thou/uL (4.3-10.9) 10/10/23 00:23 Hgb 12.2 g/dL (12.0-15.0) 10/10/23 00:23 Hct 36.3 % (36.0-45.0) 10/10/23 00:23 Plt Count 246 thou/uL (152-406) 10/10/23 00:23 PT 12.5 SECONDS (9.5-12.5) 10/10/23 00:23 INR 1.14 10/10/23 00:23 APTT 27.8 SECONDS (24.3-36.9) 10/10/23 00:23 Sodium 133 mEq/L (136-145) L 10/10/23 00:23 Potassium 4.1 mEq/L (3.5-5.1) 10/10/23 00:23 BUN 41 mg/dL (7-18) H 10/10/23 00:23 Creatinine 1.93 mg/dL (0.55-1.02) H 10/10/23 00:23 Glucose 115 mg/dL (74-106) H 10/10/23 00:23 Magnesium 2.2 mg/dL (1.6-2.4) 10/10/23 00:23 Total Bilirubin 0.6 mg/dL (0.2-1.0) 10/10/23 00:23 AST 36 U/L (15-37) 10/10/23 00:23 ALT 57 U/L (13-56) H 10/10/23 00:23 Alkaline Phosphatase 84 U/L (45-117) 10/10/23 00:23 Lipase 104 U/L (13-75) H 10/10/23 00:23 Home Medications: Cefpodoxime Proxetil 100 mg PO BID #10 tab 10/11/23 New Medications: Cefpodoxime Proxetil 100 mg PO BID #10 tab Time spent managing pt's care (in minutes): 28
[2023-10-11] MEDS ORDERED: dexAMETHasone 10 MG/ML VIAL ONE (09:39)
[2023-10-11] MEDS ORDERED: NA CHLORIDE 0.9% 50 ML ONE (09:39)
--- NOTE | 2023-10-11 12:39 | P.CNS ---
Date of Consult: 10/11/23 Reason for Consult: Weakness tested positive for coronavirus Chief Complaint: Generalized weakness/UTI History of Present Illness: Patient is 87 years of age very pleasant lady admitted with sudden onset of weakness she denies any fever chills cough shortness of breath no other complaints has not been in contact with anyone who is at COVID-patient has been previously vaccinated tested positive Allergies acetaminophen [From Tylenol] Allergy (Verified 08/30/19 15:41) Unknown lisinopril Allergy (Verified 08/30/19 15:41) Unknown warfarin sodium [From Coumadin] Allergy (Verified 08/30/19 15:41) Unknown Home Medications: Cefpodoxime Proxetil 100 mg PO BID #10 tab 10/11/23 - Past Medical/Surgical History -: Hypertension Past Surgical History: Patient denies surgical history - Social History Smoking Status: Never smoker Review of Systems 10-point ROS is otherwise unremarkable Physical Examination Temp Pulse Resp BP Pulse Ox 97.5 F 88 18 111/70 98 10/11/23 08:00 10/11/23 08:00 10/11/23 08:00 10/11/23 08:00 10/11/23 08:00 General: Alert, In no apparent distress, Oriented x3 Respiratory: Clear to auscultation bilaterally Cardiovascular: No edema, Regular rate/rhythm, Normal S1 S2 Gastrointestinal: Normal bowel sounds, Soft and benign Laboratory Data (last 24 hrs) 10/10/23 10/10/23 10/10/23 00:23 00:23 00:23 WBC 7.80 Hgb 12.2 Hct 36.3 Plt Count 246 PT 12.5 INR 1.14 APTT 27.8 Sodium 133 L Potassium 4.1 BUN 41 H Creatinine 1.93 H Glucose 115 H Magnesium 2.2 Total Bilirubin 0.6 AST 36 ALT 57 H Alkaline Phosphatase 84 Lipase 104 H - Problems (1) Coronavirus infection Current Visit: Yes Status: Acute Plan: Patient is 87 years of age admitted with weakness positive for coronavirus although she has no upper respiratory or pulmonary complaint patient's renal function is abnormal creatinine 1.93 seems to be little worse agree with IV fluids recheck renal function patient is not taking any AYUSH inhibitors at home chest x-ray clear no evidence of any underlying sepsis patient does take amlodipine at home recheck her renal function she does not have a regular doctor. I have advised her to follow-up with me in 2 weeks we will continue to monitor and refer her to her primary care physician she is asymptomatic right now no treatment for coronavirus infection is recommended DC steroid. She may also have a urinary tract infection also ordered a renal ultrasound
--- NOTE | 2023-10-11 13:29 | RAD REPORT ---
EXAM DESCRIPTION: US - Renal Ultrasound-Complete - 10/11/2023 1:13 pm CLINICAL HISTORY: Renal failure Flank pain COMPARISON: Abdomen Pelvis Wo Contrast dated 01/30/2023 FINDINGS: Mildly echogenic kidneys. The right kidney measures 7.5 x 4.5 x 3.9 cm. No hydronephrosis, focal mass or perinephric fluid. The left kidney measures 4.5 x 4.0 x 3.9 cm. Small stones are present left kidney. No hydronephrosis, focal mass or perinephric fluid. The urinary bladder is incompletely distended without gross abnormality seen. IMPRESSION: Mildly echogenic kidneys likely related to underlying medical renal disease. Small left renal calculi without hydronephrosis.
[2023-10-11 13:48] VITALS: BP 122/86; TEMP 98.2
[2023-10-11 15:02] VITALS: O2SAT 95
--- NOTE | 2023-10-11 16:23 | PN ---
The patient was admitted to the hospital as an inpatient for UTI and COVID positive; however, on furt her evaluation within the last few hours, the patient is feeling much better, asymptomatic. The colleen ent does not have pneumonia and symptomatically, she is improved. Her elevated creatinine is going t o be monitored as an outpatient. The patient does not have any evidence of dehydration. Therefore, the patient is appropriate for discharge home with change of status from inpatient to observation. T herefore, I concur and approve the code 44 for this patient. /MODL Voice ID: [id number] Report ID: [id number]
--- NOTE | 2023-10-11 16:56 | EKG ---
Test Date: 2023-10-11 Test Time: 00:24:24 Loft Worker Head: KAMILAH MEASUREMENT RESULTS: Intervals: Rate: 56 NM: 176 QRSD: 120 QT: 436 QTc: 420 [place]: P: 42 NM: 176 QRS: 55 T: 17 INTERPRETIVE STATEMENTS: Sinus bradycardia Right bundle branch block Abnormal ECG Compared to ECG 05/27/2020 12:23:50 Right bundle-branch block now present Incomplete right bundle-branch block no longer present Electronically Signed On 10-11-23 16:55:11 WINCH OPERATOR by Otis Garza
--- NOTE | 2023-10-13 10:17 | RAD REPORT ---
EXAM DESCRIPTION: RAD - Chest Single View - 10/11/2023 12:26 am CLINICAL HISTORY: The patient is 87 years old and is Female; Gen weakness TECHNIQUE: Frontal view of the chest. COMPARISON: No relevant prior studies available. FINDINGS: Lungs: Unremarkable. No consolidation. Pleural space: Unremarkable. No pneumothorax. Heart: Unremarkable. Mediastinum: Unremarkable. Normal mediastinal contour. Bones/joints: Median sternotomy wires. IMPRESSION: No acute findings in the chest. Electronically signed by: Roni Fong MD 10/11/2023 12:33 AM SELF STORAGE MANAGER Due to temporary technical issues with the PACS/Fluency reporting system, reports are being signed by the in house radiologists without review as a courtesy to insure prompt reporting. The interpreting radiologist is fully responsible for the content of the report
--- NOTE | 2023-10-13 10:21 | RAD REPORT ---
EXAM DESCRIPTION: CT - Head Brain Wo Cont - 10/11/2023 6:01 am CLINICAL HISTORY: The patient is 87 years old and is Female; Generalized weakness TECHNIQUE: Axial computed tomography images of the head/brain without intravenous contrast. Sagitt al and coronal reformatted images were created and reviewed. This CT exam was performed using one o r more of the following dose reduction techniques: automated exposure control, adjustment of the mA and/or kV according to patient size, and/or use of iterative reconstruction technique. COMPARISON: CT Head dated April 19 2021 FINDINGS: BRAIN: There is diffuse cerebral atrophy present, consistent with this patient's age. There is patchy hypoattenuation of the deep white matter which is non-specific, but most likely owing to chronic small vessel ischemic change in a patient of this age group. No intracranial hemorrhage , mass effect, midline shift is seen. There are no extra-axial fluid collections. The pepper-white diff erentiation is maintained. There is no cerebral edema. VENTRICLES: Unremarkable. No ventriculomegaly. BONES/JOINTS: No acute fracture. SOFT TISSUES: Unremarkable. SINUSES: Unremarkable as visualized. No acute sinusitis. MASTOID AIR CELLS: Unremarkable as visualized. No mastoid effusion. ORBITS: Unremarkable as visualized. IMPRESSION: Age-related atrophy and chronic white matter ischemic changes, with no evidence of an ac sage intracranial abnormality. Electronically signed by: Radha Longoria MD 10/11/2023 12:53 AM DOCTOR ASSISTANT Due to temporary technical issues with the PACS/Fluency reporting system, reports are being signed by the in house radiologists without review as a courtesy to insure prompt reporting. The interpreting radiologist is fully responsible for the content of the report
== END 2023-10-11 14:10 | disposition home or self-care (01) ==
LOC: ER 23:43 → ERHOLD 10-11 02:37 → INTOOBSV 10-11 02:37
PROVIDERS: ADMIT Family Medicine; ATTEND Internal Medicine
DX: N39.0 Urinary tract infection, site not specified (principal); U07.1 COVID-19; I10 Essential (primary) hypertension; E86.0 Dehydration; E87.1 Hypo-osmolality and hyponatremia
CPT/HCPCS: 93005; 87040 ×2; 87088; 85025; 81001; 87086; 80048; 36415; 83735; 82550; 85610; 85379; 80076; 85730; 84443; 84484 ×2; 84439; 83690; 83880; 86140; 87804 ×2; 70450; 71045; 76770; 94760; 96374; 99285; 87811; J1100; J7030; J0696 ×2; G0378 ×2

== ENCOUNTER → 2023-12-16 | Emergency (ER) | payer OTHER ==
[~2023-12-16] MED LIST: ASPIRIN 325 MG TAB ONE; HEPARIN 5000 UNIT/ML 1 ML VIAL ONE; HEPARIN/D5W 25,000 UNIT/500 ML BAG IV ONE; KETOROLAC 30 MG/ML INJ ONE; ONDANSETRON 4 MG/2 ML VIAL ONE
--- OUTSIDE RECORDS SUMMARY | 2023-12-16 13:54 | XMS REPORT | Continuity of Care Document ---
Author Name Unknown Address [address] [facility] [address] [place] [address] [facility] thconnect Address [address] [facility] [address] [place] [address] Care Team Providers Care Nursing Attendant Name Role Phone PCP, UNKNOWN Primary Care Physician Unavailab daniel SARKAR_ Attending Clinician Unavail able Andreina Loredo Attending Clinician Unavailable Jun_Adalgisa Attending Clinician Unavailable ASHLEY CAO Attending Clinician Unavaila junior SARKAR_ Admitting Clinician Unavail able Facundo, Andreina Admitting Clinician Unavailable Jun_Adalgisa Admitting Clinician Unavailable Payers Payer Name Policy Type Policy Number Effective Date Expirati on Date Source MEDICARE [place]: [employer] [id number] 2001 00:00:00 MEDICARE PART A \\T\\ B [id number] 2001 00:00:00 Allergies, Adverse Reactions, Alerts Allergy Name Allergy Type Status Severity Reaction(s) Onset Date Inactive Date Treating Clinician Comments Source No Known Drug Allergie s DA Active U 02-05 00:00: 00 [facility] acetamin ophen DA Active MO Rash 02-05 00:00: 00 [facility] CIPROFLO XACIN DRUG INGREDI Active High Other-Cmnt 03-04 00:00: 00 [facility] SIMVASTA TIN DRUG INGREDI Active High Unknown-Cmnt 03-04 00:00: 00 [facility] LISINOPR IL DRUG INGREDI Active ITCHING 05-20 00:00: 00 [facility] ACETAMIN OPHEN DRUG INGREDI Active Rash 05-20 00:00: 00 [facility] WARFARIN DRUG INGREDI Active Swelling 05-20 00:00: 00 [facility] Encounters Start Date/Time End Date/Time Encounter Type Admission Type Attending [facility] Care Facility Care Department Encounter ID Source 2023-12-03 14:47:25 2023-12-03 14:47:25 Outpatient SFA SFA [id number] [facility] 2023-05-03 00:00:00 2023-05-03 00:00:00 Outpatient GABBY_DO AGUDELO__ [facility] [id number] [facility] 2023-02-05 20:07:00 2023-02-07 14:20:00 Inpatient Emergency Facundo, [facility] [id number] [facility] 2023-02-05 20:07:00 2023-02-07 14:20:00 Inpatient Emergency Facundo, [facility] [id number] [facility] 2020-10-30 02:23:00 2020-10-30 02:23:00 Outpatient Ramireddy_S VFP [id number] [facility] 2020-03-18 11:30:00 2020-03-18 11:30:00 Outpatient ASHLEY HASTINGS [facility] [id number] [facility] 2020-03-18 11:30:00 2020-03-18 11:30:00 Outpatient ASHLEY HASTINGS [facility] [id number] [facility] Results Test Description Test Time Test Comments Results Result Co mments Source CULTURE, URINE 2023-12-05 16:23:17 SPECIMEN NUMBER: [id number] CULTURE, URINE SPECIMEN NUMBER: [id number] SOURCE: URINE REPORT STATUS: FINAL ISOLATE NUMBER 1: IDENTIFICATION: 12/05/2023 50-100,000 CFU/ML STREPTOCOCCUS AGALACTIAE (GROUP B) ADDITIONAL OBSERVATIONS: PENICILLIN AND AMPICILLIN ARE DRUGS OF CHOICE FOR TREATMENT OF B-HEMOLYTIC STREPTOCOCCAL INFECTIONS. SUSCEPTIBILITY TESTING OF PENICILLIN AND OTHER B-LACTAMS APPROVED BY THE US FOOD AND DRUG ADMINISTRATION FOR TREATMENT OF B-HEMOLYTIC STREPTOCOCCAL INFECTIONS NEED NOT BE PERFORMED ROUTINELY. UNLESS OTHERWISE INDICATED, ALL TESTING PERFORMED AT [facility] [address] [place] [id number] HYDRAULIC PRESS OPERATOR: NEIDA SIMMONS M.D. CLIA NUMBER [id number] [place]. [id number] Iron and Iron Bind Cap [id number] 06:00:00* Test Item Value Reference Range Interpretation Comme nts Iron (test code = FE) 76 ug/mL 50-170 N Total Iron Binding Capacity (test code = TIBC) 259 mcg/dL 250-425 N Iron Saturation (test code = FESAT) 29 % Dpmlvswi6034-98-14 06:00:00* Test Item Value Reference Range Interpretation Comme nts Ferritin (test code = DAVIN) 19.8 ng/mL 10.5-307.3 N Vitamin D 25 Hipntrl4535-44-78 06:00:00* Test Item Value Reference Range Interpretation Comme nts Vitamin D 25 Hydroxy (test c ode = VITD) 43 ng/mL PTH,Parathyroid Hormone Oiceod2968-02-85 06:00:00* Test Item Value Reference Range Interpretation Comme nts PTH,Parathyroid Hormone Inta ct (test code = PTHIN) 58.6 pg/mL 18.5-88 N Protein/Creatinine Ratio,Nlyu8780-36-92 01:13:00* Test Item Value Reference Range Interpretation Comme nts Total Protein,Urine Random ( test code = TPU) < 6.0 mg/dL 1.0-14.0 N Creatinine,Urine Random (rita t code = CREU) 18.4 mg/dL 10.0-300.0 N Protein/Creatinine Ratio,Uri ne (test code = PROUCRE) 0.30 Ratio UC, Urine Abbbmfe1574-02-64 01:13:00* Test Item Value Reference Range Interpretation Comme nts UC, Urine Culture (test code = UC) NO GROWTH AFTER 24 HOURS UC, Urine Culture (test code = UC) NO GROWTH AFTER 48 HOURS Blood Zcrcnpm6017-97-18 05:44:00* Test Item Value Reference Range Interpretation Comme nts Blood Culture (test code = BC) NO GROWTH AFTER 5 DAYS Complete Blood Count Auto Bkix0433-53-33 05:41:00* Test Item Value Reference Range Interpretation [...] code = NRBCP) 0 % Comprehensive Metabolic Hkvgt6461-31-97 05:41:00* Test Item Value Reference Range Interpretation [...] Reported eGFR is based on the CKD-EPI 2020 equation thatdoes not use a race coefficient. Additional information canbe found at:11-36-0060_ndo_ egfr_summary_flyer 5.pdf ([email or web address].org) [Automated message] The system [...] code = ALP) 62 U/L 46-116 N Jcsfjoudsxh4574-27-04 05:41:00* Test Item Value Reference Range Interpretation Comme nts Phosphorous (test code = PHOS) 2.7 mg/dL 2.4-5.9 N Pbeezdlci6924-62-89 05:41:00* Test Item Value Reference Range Interpretation Comme nts Magnesium (test code = MG) 2.0 mg/dL 1.6-2.6 N Blood Rkxvhbk7583-75-97 05:39:00* Test Item Value Reference Range Interpretation Comme nts Blood Culture (test code = BC) NO GROWTH AFTER 5 DAYS Troponin I High Uubsszrljks9008-74-98 16:40:00* Test Item Value Reference Range Interpretation Comme nts Troponin I High Sensitivity (test code = TROPHS) 9 ng/L 0-45 N Prothrombin Time UEK0820-17-14 16:40:00* Test Item Value Reference Range Interpretation [...] Not Have Enough VolumeComplete Blood Count Auto Foid0515-65-63 16:40:00* Test Item Value Reference Range Interpretation [...] % Comment: Initial Specimen ClottedUA, Urinalysis Rflx Cult/Dbbtb1692-43-91 16:00:00* Test Item Value Reference Range Interpretation Comme nts Color,Urine (test code = UCOL) Yellow Yellow Clarity,Urine (test code = UCLAR) Cloudy Clear A Ph, Urine (test code = UPH) 5.5 5.0-9.0 N Specific [place],Urine (test code = USG) 1.015 1.005-1.030 N [...] Small mg/dL Negative A UF REFLEXUF REFLEXUrine Tvqogsfvgib4507-08-17 16:00:00* Test Item Value Reference Range Interpretation Comme nts RBC,Urine (test code = URBCUF) None Seen /HPF 0-2 WBC,Urine (test code = UWBCUF) 6-10 /HPF 0-5 A Epithelial Cell,Urine (test code = UECUF) 11-25 /HPF 0-5 A Casts,Urine (test code = UCASTUF) 6-10 /LPF None Seen A Bacteria,Urine (test code = UBACTUF) Rare /hpf None Seen UF REFLEXUF REFLEXTroponin I High Qfzzxdoczda5212-60-46 15:40:00* Test Item Value Reference Range Interpretation Comme nts Troponin I High Sensitivity (test code = TROPHS) 9 ng/L 0-45 N Comprehensive Metabolic Hjksm2350-94-29 15:40:00* Test Item Value Reference Range Interpretation [...] a race coefficient. Additional information canbe found at:[email or web address]_zpw_ egfr_summary_flyer 5.pdf ([email or web address].org) [Automated message] The system [...] = ALP) 72 U/L 46-116 N Creatine Slwtiv3194-97-54 15:40:00* Test Item Value Reference Range Interpretation Comme nts Creatine Kinase (test code = CK) 44 U/L 46-171 L B-Type Natriuretic Dspnllz5960-00-93 15:40:00* Test Item Value Reference Range Interpretation Comme nts B-Type Natriuretic Peptide ( test code = BNP) 114.3 pg/mL 0.0-99.9 H [facility] [address] [place] [address] Patient Name: Kassandra Chang Medical Record#: [id number] Address: [address] [place] [address] City/State/Zip: [place] [address]: Andreina Loredo DO Phone: Insurance: Medicare A B /Age/Sex: 1935/87/F Self Pay Admit/Reg Date: 02/05/[address]: Andreina Loredo DO Location: [place] [id number] PCP: Paige Reyez Md Date of Service: 02/05/23 Order (s): US Renal Complete CPT Code: 83556 Report Number: [id number] Reason for Exam: JT H 20 TIME OF STUDY: REASON FOR EXAM: JT COMPARISON: None. FINDINGS: High-resolution dedicated renal sonogram was performed. B-mode grayscale and color Doppler are obtained. Both kidneys are age-appropriate in size and echogenicity. The right kidney measures 8.6 cm in length and the left is 7.7 cm. There is noevidence of hydronephrosis, calculi, or focal mass in either kidney. No perinephric fluid collections are identified. There is no abdominal ascites. Corticomedullary differentiation is well maintained. Limited views of the pelvis demonstrate a mildly distended urinary bladder. No large intraluminalfilling defect or calculi are identified. IMPRESSION: 1. Normal renal sonogram. No acute abnormalities identified. Electronically signed by: Tommy Garcia MD 02/06/2023 7:34 AM CDT Dictated By: Tommy Garcia MD 02/05/232323 Signed By: Tommy Garcia MD 02/06/23 0736 TD/TT: 02/05/232323 Tech: SSB15 cc: FARAB; PCPNS* Andreina Loredo DO; Zoraida,ERXR chest 1[facility]St. [facility] [address] [place] [address] Patient Name: Kassandra Chang Medical Record#: [id number] Address: [address] [place] [address] City/State/Zip: [place] [address]: Anthony Mckeon MD Insurance: Medicare A B /Age/Sex: 1935//F Self Pay Admit/Reg Date: 02/05/[address]: Thalia Holbrook NP Location: [facility]/ PCP: Pcp-Non StaffMd Date of Service: 02/05/23 Order (s): XR chest 1V CPT Code: 44561 Report Number: [id number] Reason for Exam: weak EXAM: Portable chest [...] Signed By: Mike Horowitz MD 02/05/231741 TD/TT: 02/05/23 172 Tech: JAK15 cc: [email or web address]; PCPNS* Thalia Holbrook NP; SAM Conway EKG ED Electrocardiogram[address] [address] Patient Name: Kassandra Chang Medical Record#: [id number] Address: [address] [place] [address] City/State/Zip: [place] [address]: Andreina Loredo DO Phone: Insurance: Medicare A B /Age/Sex: 1935/87/F Self Pay Admit/Reg Date: 02/05/[address]: VONNIE Moscoso Location: SJM8M/XX696-B PCP: PCP,UNKNOWN Date of Service: 02/05/23 Order (s): EKG ED Electrocardiogram CPT Code: 17260 Report Number: [id number] Reason for Exam: weak/dizzy SINUS BRADYCARDIA Incomplete RBBB Possible right ventricular hypertrophy Inferior/lateral ST-T abnormality may bedue to hypertrophy and/or ischemia Summary: Abnormal ECG I45.10 Dictated By: Delgado Diallo MD02/05/231856 Signed By: Delgado Diallo MD 02/08/231436 TD/TT: 02/05/231856 Tech: [facility] cc: NICHOUKA; PCPUNK* Thalia Holbrook NP; PCP,UNKNOWNCT head/brain wo contrastSt. [address] [address] Patient Name: Kassandra Chang Medical Record#: [id number] Address: [address] [place] [address] City/State/Zip: [place] [address]: Anthony Mckeon MD Insurance: Medicaid [place] /Age/Sex: 1935/87/F Self Pay Admit/Reg Date: 02/05/[address]: Thalia Holbrook NP Location: [facility]/ PCP: Pcp-Zoë StaffMd Date of Service: 02/05/23 Order (s): CT head/brain wo contrast CPT Code: 25960 Report Number: [id number] Reason for Exam: weak dizzy EXAMINATION: CT [...] hemorrhage, mass or mass effect, or abnormal extra- axial fluid collection. The ventricles are normal in size, shape and position. Vascular: The larger dural venous sinuses are grossly normal. No significant atherosclerotic plaque. Sinuses: The visualized paranasal sinuses and mastoid air cells are predominantly clear. Bones: The osseous structures and orbits have no significant abnormalities. Soft tissue: No significant soft tissue abnormalities. IMPRESSION: Mild atrophy and deep white matter chronic small ve ssel changes with otherwise no acute abnormality. Electronically signed by: Angelo Casarez MD 02/05/2023 3:40 PM CDT Dictated By: Angelo Casarez MD 02/05/23 1535 Signed By: Angelo Casarez MD 02/05/23 1542 TD/TT: 02/05/23 153 Tech: SCR09 cc: DAYNA; PCPNS* Thalia Holbrook NP; JULIEN Conway abdomen pelvis wo [facility]St. [facility] [address] [place] [address] Patient Name: Kassandra Chang Medical Record#: [id number] Address: [address] [place] [address] City/State/Zip: [place] [address]: Anthony Mckeon MD Insurance: Medicaid [place] /Age/Sex: 1935/87/F Self Pay Admit/Reg Date: 02/05/[address]: Thalia Holbrook NP Location: [facility]/ PCP: Pcp-Non StaffMd Date of Service: 02/05/23 Order (s): CT abdomen pelvis wo contrast CPT Code: 30169 Report Number: [id number] Reason for Exam: N/V EXAMINATION:CT abdomen pelvis [...] There is no pelvic mass or fluid collection.Bowel: Moderate hiatal hernia. Mild thickening inflammation of the duodenum with mild adjacent inflammatory change. There is no fluid collection or free air. Loops of bowel without additional thickening or dilatation. Normal appendix. Diverticuli are seen scattered throughout the sigmoid colon withno wall thickening or adjacent inflammation. There is [...] CDT Dictated By: Angelo Casarez MD 02/05/23 1528 Signed By: Angelo Casarez MD 02/05/23 1550 TD/TT: 02/05/23 1528 Tech: SCR09 cc: DAYNA; NAETTE* Thalia Holbrook NP; SAM Conway Notes Date/Time Note Provider Source 2023-02-07 11:45:00 ocMxMdW8KSHXLsCxFNQ9 pT9Zh9HhmHPL6ra+qD6m2IKrNbzER Abrq+ex6IhYxKeS4997-87-85D72:45:00 [facility] [address] [place] [address] Discharge Summary Signed Patient: Kassandra Chang Medical Record#: [id number] : 1935 Acct:[id number] Age/Sex: 87 / F Admit/Reg Date: 02/05/23 Loc: SJM8M Room: [address] Report Number: [id number]: Andreina Loredo DO DS: Providers [...] For Exam: JT Attending physician on discharge: Andreina Loredo Discharging clinician: Marleni Espinoza DS: Diagnosis [...] LR 75 cc an hour; BUN/creatinine now 17.33 Renal ultrasound:Normal renal sonogram. No acute abnormalities [...] took greater than 30 minutes due to imcx-yz-yfcy time with patient - Time Spent with [...] 17 Creatinine 1.33 H Estimated Creat Clear Caretaker Estimated GFR 39 L Glucose 100 Calculated [...] Condition: Good - Discharge Information Print Language: Albanian Quality - Smoking Status Smoking Status: Never tobacco user Dictated By: Marleni Espinoza MD Signed By: Marleni Espinoza MD 02/07/23 1204 DD/ 1145 TD/TT: 02/07/23 1145 Director Of Instruction: IDALMIS cc: CLARA; PCPCHICHO; IDALMIS* Andreina Loredo DO; Marleni Espinoza MD; SAM ConwayDSDislia SummaryMarleni GrahamJtdncFdfcgtceIpehq6110-72-96L20:45:00P.DSAVAvaila ble for patient uuhaKTIOMKjTYDFz8855-94-30V67:04:32 [facility] 2023-02-06 09:48:00 5z4pI97B0RgbxKzMDeLQ cXpvN7mHbfmry7kYxGVafYDy1BLzr UOWTppveKZIapIK8304-38-59A77:48:00 [facility] [address] [place] [address] General Medicine Progress Note Signed Patient: Kassandra Chang Medical Record#: [id number] : 1935 Acct:[id number] Age/Sex: 87 / F Admit/Reg Date: 02/05/23 Loc: SJM8M Room: [address] Report Number: [id number] Attending Dr: Andreina RUSS Subsequent Impression: Patient [...] status post partial colectomy Anemia of chronic disease-10.733.1 Plan: Admit to medical floor Vital signs are stable Consulted copyright manager Dr. Joelle Epstein ; appreciate any recommendations [...] having some right-sided flank pain Preferred Language: Albanian Review of Systems - Review of Systems [...] MD 02/06/23 1153 DD/ 7 TD/TT: 02/06/23947 Director Of Instruction: IDALMIS cc: IDALMIS* Marleni Espinoza MD P.PNGMGeneral Medicine Progress NoteVARLEAlex EspinozaGiaizHifrcfkjGleky0676-40-23D59:48:00P.PNGMAVAvai lable for patient btwtMUAJBPjNYQJh9266-58-38L10:54:11 [facility] 2023-02-06 09:25:00 9+lTJucfKmtI1KDw6b3F vfbXVPVCJ2Cug1oGE3CjmiRvjWIGD 3T76vP4MrYiFhuT3966-02-12M85:25:00 [facility] [address] [place] [address] Renal Consult Note Signed Patient: Kassandra Chang Medical Record#: [id number] : 1935 Acct:[id number] Age/Sex: 87 / F Admit/Reg Date: 02/05/23 Loc: SJM8M Room: [address] Report Number: [id number]: Andreina Loredo DO HPI Date of Encounter: 02/06/23 Time of Encounter: 09:25 Referring Provider: Andreina Loredo Reason for Consult: JT Chief complaint HPI: generalized weakness History of Present Illness: 87yo F with multi-comorbid past medical history presenting to [facility] for evaluation of progressively worsening generalized weakness [...] Apart from the aforementioned; patient denies cardiopulmonary, JUNIOR COPYWRITER, or GI/ deviation from clinical baseline priorto onset of presenting symptomatology. Renal consulted for evaluation and management of acute kidneyinjury. Active Medications Calcium Carbonate (Calcium Carbonate 500 Mg Chew Tab) 500 mg PO BID@0900,2100 PRN PRN Reason: Heartburn Heparin Sodium (Porcine) (Heparin 5,000 Unit/1 Ml Inj) 5,000 unit SC Q12H [facility] Last Admin: 02/06/23 08:09 Dose: 5,000 unit Documented By: NORA Ceftriaxone Sodium 1 gm/ (Sodium Chloride) 50 mls @ 100 mls/hr IV Q24H [facility] Last Admin: 02/06/23 08:09 Dose: 100 mls/hr Documented By: NORA Metronidazole/Sodium Chloride (Flagyl 500 Mg/100 Ml) 500 mg in 100 mls @ 100 mls/hr IV Q8H [facility] Last Admin: 02/06/23 05:58 Dose: 100 mls/hr [...] (0.55-1.02) H 02/06/23 05:41 Estimated Creat Clear Caretaker 02/06/23 05:41 BUN/Creatinine Ratio 17 ratio (10-20) [...] pH 5.5 (5.0-9.0) 02/05/23 16:00 Ur Specific [place] 1.015 (1.005-1.030) 02/05/23 16:00 Urine Protein Negative [...] MD 02/06/23 1739 DD/ 4 TD/TT: 02/06/23924 Director Of Instruction: KAREEM cc: CLARA; JOSE Loredo DO; Margarita CruzCONRENNephrology ConsultationMAGOKiet Williamsonmil2023-05-13T09:25:00P.MARY ANNRENAVAvai lable for patient swviORLTLXqRLCYy6613-80-61L72:40:01 [facility] 2023-02-05 19:57:00 yBgSdaGmdGi5/wrnFaJ/ U+NHvTWw7sHEwXoSelboGVOEW6wbF 6jG2FU449E7VTKe1058-87-33P10:57:00 [facility] [address] [place] [address] History Physical Signed Patient: Kassandra Chang Medical Record#: [id number] : 1935 Acct:[id number] Age/Sex: 87 / F Admit/Reg Date: 02/05/23 Loc: SJM8M Room: KD227-W Report Number: [id number] Attending Dr: Andreina Loredo DO HPI Date [...] moves all, no edema Skin: no rashes Neuro/JUNIOR COPYWRITER: alert, oriented X 3, no motor deficits, [...] medical floor Vital signs are stable Consulted copyright manager Dr. Joelle Epstein ; appreciate any recommendations [...] Problem: Yes Attending Problem List Check: Pass GM Quality VTE Risk Level: Moderate - Patient [...] % (Auto) Cancelled, Lymph % (Auto) Cancelled, [place] % (Auto) Cancelled,Eos % (Auto) Cancelled, Baso % (Auto) Cancelled, Neut # (Auto) Cancelled, Lymph # (Auto) Cancelled, [place] # (Auto) Cancelled, Eos # (Auto) Cancelled, Baso # (Auto) Cancelled, Immature Gran # (Auto) Cancelled, Absolute Nucleated RBC Cancelled, Nucleated RBC % (auto) Cancelled 02/05/23 15:40: Sodium 133.0 L, Potassium 5.0, Chloride 101, Carbon Dioxide 22, Anion Gap 10, BUN 39H, Creatinine 2.43 H, Estimated Creat Clear Caretaker, Estimated GFR 19 L, BUN/Creatinine Ratio 16, Zuwdjkp934, Calculated Osmolality 284.9, Calcium 9.1, Total Bilirubin 0.3, AST 14, ALT 12, Alkaline Phosphatase 72, Total Creatine Kinase 44 L, Total Protein 7.6, Albumin 4.3, Globulin 3.3, Albumin/Globulin Ratio 1.3 02/05/23 15:40: Troponin I High Sens 9 02/05/23 15:40: B-Natriuretic Peptide 114.3 H 02/05/23 16:00: Urine Color Yellow, Urine Clarity Cloudy A, Urine pH 5.5, Ur Specific [place] 1.015,Urine Protein Negative, Urine Glucose (UA) Negative, [...] % (Auto) 68.4, Lymph % (Auto) 22.8, [place] % (Auto) 6.5, Eos % (Auto) 1.6, Baso % (Auto) 0.4, Neut # (Auto) 6.7, Lymph # (Auto) 2.23, [place] # (Auto) 0.64, Eos # (Auto) 0.16, [...] Loredo DO 02/06/23626 DD/ 56 TD/TT: 02/05/231956 Director Of Instruction: CLARA cc: CLARA; PCPNS* Andreina oLredo DO; SAM Conway P.HPGMHistory \\T\\ PhysicalFARABGlenna LoredoUplfElzqhmKjvu7827-25-87F67:57:00P.HPGMAVAvailabl e for patient ondiCOYMMXtAZCRd8629-65-36L93:28:18 [facility] 2023-02-05 15:07:00 XE4ZGiPEAReUxXxd2ToL QPNZkEA453ZE71o1nloL+Dw4na3Zg bS5iPqVRy5UkA7M4255-58-24W85:07:00 [facility] [address] [place] [address] Emergency Department Document Signed Patient: Kassandra Chang Medical Record#: [id number] : 1935 Acct:[id number] Age/Sex: 87 / F Admit/Reg Date: 02/05/23 Loc: SJM8M Room: [address] Report Number: [id number] Attending Dr: Andreina Loredo DO <Anthony Mckeon [...] substantial portion of the visit. reviewed the DAYTIME BABYSITTER/PA's documentation and agree with the DAYTIME BABYSITTER/PA's HPI, Exam, and assessment and plan of [...] % (Auto) Cancelled, Lymph % (Auto) Cancelled, [place] % (Auto) Cancelled,Eos % (Auto) Cancelled, Baso % (Auto) Cancelled, Neut # (Auto) Cancelled, Lymph # (Auto) Cancelled, [place] # (Auto) Cancelled, Eos # (Auto) Cancelled, Baso # (Auto) Cancelled, Immature Gran # (Auto) Cancelled, Absolute Nucleated RBC Cancelled, Nucleated RBC % (auto) Cancelled 02/05/23 15:40: Sodium 133.0 L, Potassium 5.0, Chloride 101, Carbon Dioxide 22, Anion Gap 10, BUN 39H, Creatinine 2.43 H, Estimated Creat Clear Caretaker, Estimated GFR 19 L, BUN/Creatinine Ratio 16, Azcmnal733, Calculated Osmolality 284.9, Calcium 9.1, Total Bilirubin 0.3, AST 14, ALT 12, Alkaline Phosphatase 72, Total Creatine Kinase 44 L, Total Protein 7.6, Albumin 4.3, Globulin 3.3, Albumin/Globulin Ratio 1.3 02/05/23 15:40: Troponin I High Sens 9 02/05/23 15:40: B-Natriuretic Peptide 114.3 H 02/05/23 16:00: Urine Color Yellow, Urine Clarity Cloudy A, Urine pH 5.5, Ur Specific [place] 1.015,Urine Protein Negative, Urine Glucose (UA) Negative, [...] % (Auto) 68.4, Lymph % (Auto) 22.8, [place] % (Auto) 6.5, Eos % (Auto) 1.6, Baso % (Auto) 0.4, Neut # (Auto) 6.7, Lymph # (Auto) 2.23, [place] # (Auto) 0.64, Eos # (Auto) 0.16, Baso # (Auto) 0.04, Immature Gran # (Auto) 0.03,Absolute Nucleated RBC 0, Nucleated RBC % (auto) 0 02/05/23 16:40: PT 10.3, INR 1.0 Medications Ordered: Calcium Carbonate (Calcium Carbonate 500 Mg Chew Tab) 500 mg PO BID@0900,2100 PRN PRN Reason: Heartburn Heparin Sodium (Porcine) (Heparin 5,000 Unit/1 Ml Inj) 5,000 unit SC Q12H [facility] Sodium Chloride () 1,000 mls @ 100 mls/hr IV .Q10H [facility] Stop: 02/06/23 08:29 Ceftriaxone Sodium 1 gm/ (Sodium Chloride) 50 mls @ 100 mls/hr IV Q24H [facility] Magnesium Hydroxide (Magnesium Hydroxide 30 Ml Udl) [...] 17:55 Dose: 100 mls/hr Documented By: GLADYS Morphine Sulfate (Morphine 2 Mg/Ml Inj) 2 [...] by Pulse Oximetry 100 02/05/23 22:00 - [facility] Medical decision making narrative: LABS Abnormal Lab Results 02/05/23 02/05/23 02/05/23 15:40 15:40 15:40 WBC Cancelled RBC Cancelled Hgb Cancelled Hct Cancelled MCV Cancelled MCH Cancelled MCHC Cancelled RDW Coeff of Lillian Cancelled Plt Count Cancelled MPV Cancelled Immature Gran % (Auto) Cancelled Neut % (Auto) Cancelled Lymph % (Auto) Cancelled [place] % (Auto) Cancelled Eos % (Auto) Cancelled Baso % (Auto) Cancelled Neut # (Auto) Cancelled Lymph # (Auto) Cancelled [place] # (Auto) Cancelled Eos # (Auto) Cancelled Baso # (Auto) Cancelled Immature Gran # (Auto) Cancelled Absolute Nucleated RBC Cancelled Nucleated RBC % (auto) Cancelled PT INR Sodium 133.0 L Potassium 5.0 Chloride 101 Carbon Dioxide 22 Anion Gap 10 BUN 39 H Creatinine 2.43 H Estimated Creat Clear Caretaker Estimated GFR 19 L BUN/Creatinine Ratio 16 Glucose 101 Calculated Osmolality 284.9 Calcium 9.1 Total Bilirubin 0.3 AST 14 ALT 12 Alkaline Phosphatase 72 Total Creatine Kinase 44 L Troponin I High Sens 9 B-Natriuretic Peptide Total Protein 7.6 Albumin 4.3 Globulin 3.3 Albumin/Globulin Ratio 1.3 Urine Color Urine Clarity Urine pH Ur Specific [place] Urine Protein Urine Glucose (UA) Urine Ketones [...] (Auto) Neut % (Auto) Lymph % (Auto) [place] % (Auto) Eos % (Auto) Baso % (Auto) Neut # (Auto) Lymph # (Auto) [place] # (Auto) Eos # (Auto) Baso # [...] Cloudy A Urine pH 5.5 Ur Specific [place] 1.015 Urine Protein Negative Urine Glucose (UA) [...] % (Auto) 68.4 Lymph % (Auto) 22.8 [place] % (Auto) 6.5 Eos % (Auto) 1.6 Baso % (Auto) 0.4 Neut # (Auto) 6.7 Lymph # (Auto) 2.23 [place] # (Auto) 0.64 Eos # (Auto) 0.16 [...] Color Urine Clarity Urine pH Ur Specific [place] Urine Protein Urine Glucose (UA) Urine Ketones Urine Blood Urine Nitrate Urine Bilirubin Urine Urobilinogen Ur Leukocyte Esterase Urine WBC (Auto) Urine RBC (Auto) Urine Casts (Auto) U Epithel Cells (Auto) Urine Bacteria (Auto) IMAGING Order (s): CT head/brain wo contrast CPT Code: 21633 Report Number: [id number] Reason for Exam: weak dizzy EXAMINATION: CT [...] CT abdomen pelvis wo contrast CPT Code: 93395 Report Number: [id number] Reason for Exam: N/V EXAMINATION: CT abdomen [...] MDM: EKG shows sinus Michael, rate 53 OR 173, QRS 131, QTC 445, right bundle-branch [...] NP Signed By: Thalia Holbrook NP 02/05/23 [id number] Anthony Mckeon MD 02/09/23 1614 DD/ 1507 TD/TT: 02/05/23 1507 Director Of Instruction: DAYNA cc: ADONAY* PCP,UNKNOWN CHOLO Physician AdetfdarabprrCGUSR74Xtyle, [id number]:00P.EDAVAvailable for patient [id number]:[id number] [facility]
[2023-12-16 14:55] LABS: Absolute Basophils 0.1 K/uL (0-0.5); Absolute Monocytes 0.9 K/uL (0.1-1.3); Absolute Neutrophil 14.3 K/uL (1.8-8.0); Basophils % 0.3 % (0-1.3); Eosinophils % 0.1 % (0-4.4); Hemoglobin 12.1 g/dL (12.0-15.0); MCH 28.9 pg (27.0-35.0); MCHC 33.6 g/dL (32.0-36.0); MPV 8.3 fL (7.6-11.3); Monocytes % 5.8 % (3.3-12.3); Neutrophils % 87.8 % (41.7-73.7); Nucleated Red Blood Cells % 0.1 % (0-0); Platelets 327 thou/uL (152-406); RBC Red Blood Cell Count 4.19 M/uL (3.86-4.86); Red Cell Distribution Width 14.5 % (12.1-15.2)
[2023-12-16 15:03] LABS: PT Prothrombin Time 13.5 SECONDS (9.5-12.5); Protime INR 1.23
--- NOTE | 2023-12-16 15:08 | RAD REPORT ---
EXAM DESCRIPTION: Clint Single View3 2:33 pm CLINICAL HISTORY: Chest pain COMPARISON: September 2023 FINDINGS: Mild prominence of the interstitial pattern bilaterally Heart is mildly enlarged. Postsurgical changes involve the chest. Moderate hiatal hernia IMPRESSION: Mild prominence of the interstitial pattern bilaterally within the lungs. I suspect that most of this is chronic. There may be minimal superimposed interstitial pulmonary edema
--- NOTE | 2023-12-16 15:10 | RAD REPORT ---
EXAM DESCRIPTION: RAD - Shoulder Left 2 View - 12/16/2023 2:33 pm CLINICAL HISTORY: Left shoulder pain FINDINGS: No fracture or dislocation is seen. Marked osteoarthritis glenohumeral joint consisting of osteophytes, subchondral sclerosis and joint s pace narrowing Mild osteoarthritis AC joint Chronic calcification adjacent to the proximal left humerus
[2023-12-16 15:32] LABS: Albumin/Globulin Ratio 0.6 (1.1-1.8); Anion Gap 11.1 mEq/L (5.0-15.0); Bilirubin Direct 0.3 mg/dL (0-0.2); Bilirubin Indirect, Calculated 0.6 mg/dL (0.2-0.8); Bilirubin Total 0.9 mg/dL (0.2-1.0); Globulin 4.9 g/dL (2.3-3.5); Magnesium 1.9 mg/dL (1.6-2.4); Potassium 4.1 mEq/L (3.5-5.1); Protein, Total 7.9 g/dL (6.4-8.2)
[2023-12-16 15:37] LABS: Troponin High Sensitivity 2292.1 pg/mL (<58.9)
--- NOTE | 2023-12-16 15:49 | EDPHYS ---
Physician Documentation [facility] Name: Kassandra Chang Age: 88 yrs Sex: Female : 1935 Arrival Date: 12/16/2023 Time: 13:51 Bed 15 Private MD: ED Physician Parker Lynn HPI: 12/15 14:22 This 88 yrs old Female presents to ER via EMS with complaints of left shoulder sp3 pain into chest. 14:22 88-year-old female with a history of CHF, hypertension, GA now presents to the ED with sp3 chief complaint left shoulder pain for 3 days. Machine Engraver states that she tried to get patient to go to the doctor yesterday but she refused saying it was not that bad. Today continued and so she agreed to come into the ED via EMS. She denies any substernal chest pain, shortness of breath, back pain, neck pain, abdominal pain, epigastric pain, nausea, vomit, diarrhea, fever, URI symptoms, cough, syncope, near syncope, or any other signs or symptoms on ROS at this time.. Historical: - Allergies: 13:56 ACETAMINOPHEN; me1 13:56 Lisinopril; me1 13:56 Warfarin; me1 - PMHx: 13:56 CHF; Hypertension; Myocardial infarction; me1 - PSHx: 13:56 back; me1 - Immunization history:: Adult Immunizations up to date. - Social history:: Smoking status: Patient denies any tobacco usage or history of. ROS: 14:23 Constitutional: Negative for fever, chills, and weight loss, Eyes: Negative for injury, sp3 pain, redness, and discharge, ENT: Negative for injury, pain, and discharge, Neck: Negative for injury, pain, and swelling, Respiratory: Negative for shortness of breath, cough, wheezing, and pleuritic chest pain, Abdomen/GI: Negative for abdominal pain, nausea, vomiting, diarrhea, and constipation, Back: Negative for injury and pain, MS/Extremity: Negative for injury and deformity, Skin: Negative for injury, rash, and discoloration, Neuro: Negative for headache, weakness, numbness, tingling, and seizure, Psych: Negative for depression, anxiety, suicide ideation, homicidal ideation, and hallucinations, Allergy/Immunology: Negative for hives, rash, and allergies, Endocrine: Negative for neck swelling, polydipsia, polyuria, polyphagia, and marked weight changes, Hematologic/Lymphatic: Negative for swollen nodes, abnormal bleeding, and unusual bruising, 14:23 All other systems are negative, Exam: 14:23 Constitutional: This is a well developed, well nourished patient who is awake, alert, sp3 and in no acute distress. Head/Face: Normocephalic, atraumatic. Eyes: Pupils equal round and reactive to light, extra-ocular motions intact. Lids and lashes normal. Conjunctiva and sclera are non-icteric and not injected. Cornea within normal limits. Periorbital areas with no swelling, redness, or edema. ENT: Nares patent. No nasal discharge, no septal abnormalities noted. External auditory canals are clear. Oropharynx with no redness, swelling, or masses, exudates, or evidence of obstruction, uvula midline. Mucous membranes moist. Neck: Trachea midline, no thyromegaly or masses palpated, and no cervical lymphadenopathy. Supple, full range of motion without nuchal rigidity, or vertebral point tenderness. No Meningismus. Chest/axilla: Normal chest wall appearance and motion. Nontender with no deformity. No lesions are appreciated. Cardiovascular: Regular rate and rhythm with a normal S1 and S2. No gallops, murmurs, or rubs. Normal PMI, no JVD. No pulse deficits. Respiratory: Lungs have equal breath sounds bilaterally, clear to auscultation and percussion. No rales, rhonchi or wheezes noted. No increased work of breathing, no retractions or nasal flaring. Abdomen/GI: Soft, non-tender, with normal bowel sounds. No distension or tympany. No guarding or rebound. No evidence of tenderness throughout. Back: No spinal tenderness. No costovertebral tenderness. Full range of motion. Skin: Warm, dry with normal turgor. Normal color with no rashes, no lesions, and no evidence of cellulitis. Neuro: Awake and alert, GCS 15, oriented to person, place, time, and situation. Cranial nerves II-XII grossly intact. Motor strength 5/5 in all extremities. Sensory grossly intact. Cerebellar exam normal. Normal gait. Psych: Awake, alert, with orientation to person, place and time. Behavior, mood, and affect are within normal limits. 14:23 Musculoskeletal/extremity: Patient has pain to palpation on the left anterior shoulder over the bursa. Distal neurovascular exam normal on the left upper extremity. No pain to palpation on the substernal or central chest area. Abdomen is also benign. No signs of trauma noted.. 15:47 ECG was reviewed by the Attending Physician. EKG demonstrates normal sinus rhythm at [address] depressions laterally and right bundle branch block without any ST elevation or STEMI criteria. Vital Signs: 13:54 BP 127 / 59; Pulse 67; Resp 18; Temp 98.4(O); Pulse Ox 96% on R/A; Weight 58.97 kg; me1 Height 5 ft. 0 in. ; Pain 7/10; 14:00 BP 129 / 55; Pulse 68; Resp 16; Pulse Ox 97% on R/A; me1 15:00 BP 105 / 70; Pulse 73; Resp 20; Pulse Ox 98% on R/A; me1 16:00 BP 113 / 53; Pulse 74; Resp 16; Pulse Ox 94% on R/A; me1 17:00 BP 109 / 68; Pulse 70; Resp 16; Pulse Ox 96% on R/A; me1 18:00 BP 111 / 72; Pulse 76; Resp 16; Pulse Ox 96% on R/A; me1 18:09 Weight 61.3 kg; me1 18:36 BP 119 / 57; Pulse 74; Resp 17; Pulse Ox 98% on R/A; me1 19:00 BP 113 / 53; Pulse 69; Resp 15; Pulse Ox 98% on R/A; me1 20:00 BP 122 / 53; Pulse 75; Resp 22; Pulse Ox 98% on R/A; me1 20:35 BP 122 / 56; Pulse 83; Resp 19; Pulse Ox 99% on R/A; me1 13:54 Body Mass Index 25.39 (61.30 kg, 152.4 cm) me1 13:54 Pain Scale: Adult me1 MDM: 14:01 Patient medically screened. sp3 14:24 Data reviewed: vital signs, nurses notes, EMS record, old medical records, lab test sp3 result(s), EKG, radiologic studies. ED course: 88-year-old female with left shoulder pain for 3 days. Differential diagnosis includes bursitis, musculoskeletal pain, and to a lesser degree acute coronary syndrome or other related process. I am not highly suspicious for pneumonia, aortic pathology, PE or any other critical process including sepsis. Workup will include EKG, chest x-ray, laboratory values and general supportive care while workup is pending. Disposition pending workup and patient course.. 15:49 ED course: EKG demonstrates no significant STEMI criteria. Troponin is greater than sp3 3000. Aspirin added on as well. Patient states that her worst pain was 3 days ago which that pain is now resolved. Her left shoulder pain continues but is more musculoskeletal. Regardless we will admit patient to hospitalist team and consult cardiology.. 16:35 ED course: Due to [facility] being nonoperational at our facility, we will be sp3 transferring this patient now to [facility]. Transfer has been initiated.. 17:19 ED course: Discussed with Dr. Garcia cardiology at [facility] who has accepted sp3 this patient under the hospitalist service. We will do doc-to-doc with the hospitalist as well and initiate transport. I discussed this with patient's family as well who are on board with the plan.. 17:56 ED course: Discussed with hospitalist as well who has also accepted patient. They sp3 suggested heparin drip with bolus which we have initiated here.. 12/15 14:02 Order name: Basic Metabolic Panel; Complete Time: 15:37 sp3 12/15 14:02 Order name: CBC with Diff sp3 12/15 14:02 Order name: LFT's; Complete Time: 15:37 sp3 12/15 14:02 Order name: Magnesium; Complete Time: 15:37 sp3 12/15 14:02 Order name: NT PRO-BNP; Complete Time: 15:37 sp3 12/15 14:02 Order name: PT-INR; Complete Time: 15:25 sp3 12/15 14:02 Order name: Troponin HS; Complete Time: 15:37 sp3 12/15 18:26 Order name: Ptt, Activated me1 12/15 14:02 Order name: XRAY Chest (1 view); Complete Time: 15:25 sp3 12/15 14:20 Order name: Shoulder Left (2 View) XRAY; Complete Time: 15:25 sp3 12/15 14:02 Order name: EKG; Complete Time: 14:03 sp3 12/15 14:02 Order name: Cardiac monitoring; Complete Time: 15:57 sp3 12/15 14:02 Order name: EKG - Nurse/Tech; Complete Time: 15:57 sp3 12/15 14:02 Order name: IV Saline Lock; Complete Time: 14:54 sp3 12/15 14:02 Order name: Labs collected and sent; Complete Time: 14:48 sp3 12/15 14:02 Order name: O2 Per Protocol; Complete Time: 15:10 sp3 12/15 14:02 Order name: O2 Sat Monitoring; Complete Time: 15:10 sp3 Administered Medications: 15:09 Drug: Ketorolac IVP 15 mg IVP once Route: IVP; Site: right hand; me1 15:52 Follow up: Response: No adverse reaction; Pain is unchanged, physician notified me1 15:10 Drug: Ondansetron IVP 4 mg IVP once; over 2 minutes Route: IVP; Site: right hand; me1 15:52 Follow up: Response: No adverse reaction; Nausea is decreased me1 15:57 Drug: Aspirin PO 325 mg PO once Route: PO; me1 15:57 Follow up: Response: No adverse reaction me1 18:30 Drug: Heparin ([place]-Bolus No thrombolytic) - HEParin IVP 60 units/kg IVP once; Max 5000 me1 units {Co-Signature: dillon (Kathy Ferguson RN).} Route: IVP; Site: right forearm; 18:46 Follow up: Response: No adverse reaction me1 18:30 Drug: Heparin ([place] Drip) 12 units/kg/[place] - ([place] [address] units, D5W IV 500 ml) IV at me1 calculated rate Per protocol; Max initial rate 1000 units/hr {Co-Signature: lucia3 (Kathy Ferguson RN).} Route: IV; Rate: calculated rate; Site: right forearm; 20:39 Follow up: IV Status: Infusion continued upon transfer me1 Disposition Summary: 12/16/23 16:36 Transfer Ordered Notes: Transfer Location: [facility] sp3 Reason: Higher level of care sp3 Condition: Stable(12/16/23 16:36) sp3 Problem: an acute exacerbation(12/16/23 16:36) sp3 Symptoms: have worsened(12/16/23 16:36) sp3 Accepting Physician: RYNED cardiology team at [facility](12/16/23 20:48) me1 Diagnosis - NSTEMI, chest pain sp3 Forms: - Medication Reconciliation Form sp3 - SBAR form sp3 Signatures: Dispatcher [employer] EDParker Simpson MD MD sp3 Raquel White RN RN me1 Kathy Ferguson RN kd3 Corrections: (The following items were deleted from the chart) 16:35 15:48 Inpatient Admission sp3 sp3 16:35 15:48 Sonu Molina sp3 sp3 16:35 15:48 Telemetry/MedSurg (Inpatient) sp3 sp3 16:35 15:48 Stable sp3 sp3 16:35 15:48 an acute exacerbation sp3 sp3 16:35 15:48 have worsened sp3 sp3 16:35 15:48 Standard sp3 sp3 16:35 15:48 sp3 sp3 16:35 15:48 NSTEMI, Chest pain sp3 sp3 20:48 16:36 TBD cardiology team at [facility] sp3 me1
--- NOTE | 2023-12-16 15:49 | ER ---
Nurse's Notes [facility] Name: Kassandra Chang Age: 88 yrs Sex: Female : 1935 Arrival Date: 12/16/2023 Time: 13:51 Bed 15 Private MD: Diagnosis: NSTEMI, chest pain Presentation: 12/15 13:54 Chief complaint: EMS states: toned out for Left arm and shoulder pain x 3 days. Patient me1 is bedbound- denies injury. Coronavirus screen: Vaccine status: Patient reports receiving the 2nd dose of the covid vaccine. Ebola Screen: No symptoms or risks identified at this time. Initial Sepsis Screen: Does the patient meet any 2 criteria? No. Patient's initial sepsis screen is negative. Does the patient have a suspected source of infection? No. Patient's initial sepsis screen is negative. Risk Assessment: Do you want to hurt yourself or someone else? Patient reports no desire to harm self or others. Onset of symptoms was December 14, 2023. 13:54 Method Of Arrival: [place] [facility] [place] Acuity: [facility] T[place] Assessment: 13:56 General: Appears uncomfortable, well groomed, well developed, well nourished, Behavior me1 is calm, cooperative, appropriate for age, Reports pain in left arm and shoulder x 3 days. Bedbound and denies injury. Pain: Complains of pain in anterior aspect of left shoulder Pain does not radiate. Pain currently is 7 out of 10 on a pain scale. Quality of pain is described as aching, Pain began 2-3 days ago. Is continuous. Neuro: Level of Consciousness is awake, alert, obeys commands, Oriented to person, place, time, situation, Appropriate for age. Cardiovascular: Patient's skin is warm and dry. Respiratory: Airway is patent Trachea midline Respiratory effort is even, unlabored, Respiratory pattern is regular, symmetrical. Derm: Skin is pink, warm \T\ dry. Musculoskeletal: Reports pain in anterior aspect of left shoulder. Historical: - Allergies: 13:56 ACETAMINOPHEN; me1 13:56 Lisinopril; me1 13:56 Warfarin; me1 - PMHx: 13:56 CHF; Hypertension; Myocardial infarction; me1 - PSHx: 13:56 back; me1 - Immunization history:: Adult Immunizations up to date. - Social history:: Smoking status: Patient denies any tobacco usage or history of. Screenin:59 [facility] ED Fall Risk Assessment (Adult) History of falling in the last 3 months, me1 including since admission No falls in past 3 months (0 pts) Confusion or Disorientation No (0 pts) Intoxicated or Sedated No (0 pts) Impaired Gait Yes (1 pt) Mobility Assist Device Used No (0 pt) Altered Elimination Yes (1 pt) Score/Fall Risk Level 0 - 2 = Low Risk Maintained a safe environment, Hourly rounding (assess needs \T\ fall precautionary measures) done. Abuse screen: Denies threats or abuse. Nutritional screening: No deficits noted. Tuberculosis screening: No symptoms or risk factors identified. Assessment: 13:59 General: See triage assessment. . me1 16:40 Reassessment: Transfer to [facility] initiated, spoke to [facility] with transfer aa center. . 20:48 Reassessment: No changes from previously documented assessment. Patient is alert, me1 oriented x 3, equal unlabored respirations, skin warm/dry/pink. Vital Signs: 13:54 BP 127 / 59; Pulse 67; Resp 18; Temp 98.4(O); Pulse Ox 96% on R/A; Weight 58.97 kg; me1 Height 5 ft. 0 in. ; Pain 7/10; 14:00 BP 129 / 55; Pulse 68; Resp 16; Pulse Ox 97% on R/A; me1 15:00 BP 105 / 70; Pulse 73; Resp 20; Pulse Ox 98% on R/A; me1 16:00 BP 113 / 53; Pulse 74; Resp 16; Pulse Ox 94% on R/A; me1 17:00 BP 109 / 68; Pulse 70; Resp 16; Pulse Ox 96% on R/A; me1 18:00 BP 111 / 72; Pulse 76; Resp 16; Pulse Ox 96% on R/A; me1 18:09 Weight 61.3 kg; me1 18:36 BP 119 / 57; Pulse 74; Resp 17; Pulse Ox 98% on R/A; me1 19:00 BP 113 / 53; Pulse 69; Resp 15; Pulse Ox 98% on R/A; me1 20:00 BP 122 / 53; Pulse 75; Resp 22; Pulse Ox 98% on R/A; me1 20:35 BP 122 / 56; Pulse 83; Resp 19; Pulse Ox 99% on R/A; me1 13:54 Body Mass Index 25.39 (61.30 kg, 152.4 cm) me1 13:54 Pain Scale: Adult me1 ED Course: 13:53 Patient arrived in ED. ds4 13:54 Raquel White, RN is Primary Nurse. me1 13:56 Triage completed. me1 13:56 Parker Lynn MD is Attending Physician. sp3 13:56 Arm band placed on Patient placed in an exam room. me1 13:59 Patient has correct armband on for positive identification. Bed in low position. Call me1 light in reach. Side rails up X 1. Provided Education on: POC. Verbalized understanding. . 13:59 No provider procedures requiring assistance completed. me1 14:35 XRAY Chest (1 view) In Process Unspecified. EDMS 14:35 Shoulder Left (2 View) XRAY In Process Unspecified. EDMS 14:48 Missed attempt(s): 24 gauge in right forearm. Bleeding controlled, band aid applied, mb9 catheter tip intact. 14:55 Inserted saline lock: 24 gauge in right hand, using aseptic technique. aa5 15:48 Sonu Molina is Hospitalizing Provider. sp3 15:58 EKG done, by ED staff, reviewed by Parker Lynn MD. me1 17:[address] [facility] by Dr. José. ds4 20:02 Patient transferred, IV remains in place. me1 Administered Medications: 15:09 Drug: Ketorolac IVP 15 mg IVP once Route: IVP; Site: right hand; me1 15:52 Follow up: Response: No adverse reaction; Pain is unchanged, physician notified me1 15:10 Drug: Ondansetron IVP 4 mg IVP once; over 2 minutes Route: IVP; Site: right hand; me1 15:52 Follow up: Response: No adverse reaction; Nausea is decreased me1 15:57 Drug: Aspirin PO 325 mg PO once Route: PO; me1 15:57 Follow up: Response: No adverse reaction me1 18:30 Drug: Heparin ([place]-Bolus No thrombolytic) - HEParin IVP 60 units/kg IVP once; Max 5000 me1 units {Co-Signature: dillon (Kathy Ferguson RN).} Route: IVP; Site: right forearm; 18:46 Follow up: Response: No adverse reaction me1 18:30 Drug: Heparin (IN Drip) 12 units/kg/[place] ([place] [address] units, D5W IV 500 ml) IV at me1 calculated rate Per protocol; Max initial rate 1000 units/hr {Co-Signature: dillon (Kathy Ferguson RN).} Route: IV; Rate: calculated rate; Site: right forearm; 20:39 Follow up: IV Status: Infusion continued upon transfer me1 Medication: 13:59 VIS not applicable for this client. me1 Outcome: 15:48 Decision to Hospitalize by Provider. sp3 16:36 ER care complete, transfer ordered by . sp3 20:01 Transferred by ground EMS to [facility], Transfer form completed. me1 Note: Report given to RODY Augustin 20:01 Condition: stable 20:01 Instructed on the need for transfer, 20:48 Patient left the ED. me1 Signatures: Dispatcher [employer] EDMS Kanchan Saldaña RN RN aa5 Sharan Olvera ds4 Parker Lynn MD MD sp3 Diana Acosta RN RN mb9 Raquel White RN RN me1 Kathy Ferguson RN kd3 Corrections: (The following items were deleted from the chart) 18:39 08:30 Heparin ([place] Drip) - ([place] [address] units, D5W IV 500 ml) IV at calculated rate me1 in right forearm me1
--- NOTE | 2023-12-16 16:13 | P.HP ---
Certification for Inpatient Patient admitted to: Observation With expected LOS: >2 Midnights Patient will require the following post-hospital care: None Practitioner: I am a practitioner with admitting privileges, knowledge of patient current condition, hospital course, and medical plan of care. Services: Services provided to patient in accordance with Admission requirements found in Title 42 Section 412.3 of the Code of Federal Regulations Patient History Date of Service: 12/16/23 Reason for admission: NSTEMI History of Present Illness: Kassandra Chang is an 88 year old female with Pmhx CHF, HTN, [place] (CABG), who presents to the ED with chief complaint of Left shoulder pain that is reporducible. While in the ED, she was found to have an NSTEMI with troponin of 2292.[address] Garza has been consulted and she will remain NPO for now. Starting a heparin gtt. Initial vitals: BP 127 / 59; Pulse 67; Resp 18; Temp 98.4(O); Pulse Ox 96% on R/A; Laboratory evaluation: Troponin 2292.1, BNP 3672, WBC 16.3, left shift with nuetrophils 87.8, BUN/creatinine 14/1.29, GFR 40, serum glucose 135. Left shoulder xray reports " No fracture or dislocation is seen. Marked osteoarthritis glenohumeral joint consisting of osteophytes, subchondral sclerosis and joint space narrowing. Mild osteoarthritis AC joint, Chronic calcification adjacent to the proximal left humerus." Chest xray reports "Mild prominence of the interstitial pattern bilaterally. Heart is mildly enlarged. Postsurgical changes involve the chest. Moderate hiatal hernia. IMPRESSION: Mild prominence of the interstitial pattern bilaterally within the lungs. I suspect that most of this is chronic. There may be minimal superimposed interstitial pulmonary edema." Kassandra will be admitted to hospitalist service for further evaluation and treatment of NSTEMI, Dr. Garza consulted. Allergies acetaminophen [From Tylenol] Allergy (Verified 08/30/19 15:41) Unknown lisinopril Allergy (Verified 08/30/19 15:41) Unknown warfarin sodium [From Coumadin] Allergy (Verified 08/30/19 15:41) Unknown Home Medications: Cefpodoxime Proxetil 100 mg PO BID #10 tab 10/11/23 - Past Medical/Surgical History -: Hypertension Physical Examination - Studies Laboratory Data (last 24 hrs) 12/16/23 12/16/23 12/16/23 14:46 14:46 14:46 WBC 16.30 H Hgb 12.1 Hct 36.0 Plt Count 327 PT 13.5 H INR 1.23 Sodium 139 Potassium 4.1 BUN 14 Creatinine 1.29 H Glucose 135 H Magnesium 1.9 Total Bilirubin 0.9 AST 22 ALT 20 Alkaline Phosphatase 96 Assessment and Plan - Advance Directives Does patient have a Living Will: No Does patient have a Durable POA for Healthcare: No
[2023-12-16 20:56] LABS: Platelet Estimate ADEQ; White Blood Cell Scan OK (OK)
[2023-12-16 20:57] LABS: Blood Morphology Comment NOT SEEN (NOT SEEN)
[2023-12-16 21:03] VITALS: TEMP 98.4
[2023-12-16 21:32] VITALS: BP 122/56; O2SAT 99
--- NOTE | 2023-12-20 14:30 | EKG ---
Test Date: 2023-12-16 Test Time: 15:31:25 Rubber Goods Assembler: MEASUREMENT RESULTS: Intervals: Rate: 77 NH: 144 QRSD: 110 QT: 398 QTc: 450 Hagaman: P: 63 NH: 144 QRS: 71 T: -10 INTERPRETIVE STATEMENTS: Normal sinus rhythm with sinus arrhythmia Incomplete right bundle branch block ST depression, consider subendocardial injury Abnormal QRS-T angle, consider primary T wave abnormality Abnormal ECG Compared to ECG 10/11/2023 00:24:24 Incomplete right bundle-branch block now present ST (T wave) deviation now present T-wave abnormality now present Sinus bradycardia no longer present Right bundle-branch block no longer present Electronically Signed On 12-20-23 14:17:44 CDT by Otis Garza
== END ==
LOC: ER 13:51
DX: I21.4 Non-ST elevation (NSTEMI) myocardial infarction (principal); I10 Essential (primary) hypertension; I50.9 Heart failure, unspecified; I25.2 Old myocardial infarction; Z88.6 Allergy status to analgesic agent; Z88.8 Allergy status to other drugs, medicaments and biological substances
CPT/HCPCS: 93005; 85025; 80048; 36415; 83735; 85610; 80076; 85730; 84484; 83880; 71045; 73030; 99285; J1644; J2405

== ENCOUNTER 2024-11-24 15:13 | Emergency (ER) | payer OTHER ==
[2024-11-24 15:57] LABS: Absolute Basophils 0.1 K/uL (0-0.5); Absolute Eosinophils 0.2 K/uL (0-0.5); Absolute Lymphocytes (CBC) 1.8 K/uL (0.7-4.9); Absolute Monocytes 0.8 K/uL (0.1-1.3); Absolute Neutrophil 4.4 K/uL (1.8-8.0); Basophils % 0.8 % (0-1.3); Eosinophils % 2.6 % (0-4.4); Hematocrit 35.7 % (36.0-45.0); Hemoglobin 11.8 g/dL (12.0-15.0); Lymphocytes % 25.1 % (15.3-44.8); MCH 26.7 pg (27.0-35.0); MCHC 33.1 g/dL (32.0-36.0); MCV 80.7 fL (80-100); MPV 8.4 fL (7.6-11.3); Monocytes % 10.4 % (3.3-12.3); Neutrophils % 61.1 % (41.7-73.7); Platelets 262 thou/uL (152-406); RBC Red Blood Cell Count 4.42 M/uL (3.86-4.86); Red Cell Distribution Width 17.5 % (12.1-15.2)
[2024-11-24 16:11] LABS: Anion Gap 9.3 mEq/L (5.0-15.0); Magnesium 2.2 mg/dL (1.6-2.4); Potassium 4.3 mEq/L (3.5-5.1); Troponin High Sensitivity 15.5 pg/mL (<58.9)
--- NOTE | 2024-11-24 16:19 | EDPHYS ---
Physician Documentation [facility] Name: Kassandra Chang Age: 89 yrs Sex: Female : 1935 Arrival Date: 11/24/2024 Time: 15:13 Bed 15 Private MD: ED Physician Parker Lynn HPI: 11/24 15:32 This 89 yrs old Female presents to ER via EMS with complaints of Bradycardia. sp3 15:32 89-year-old female with history of MS, CHF, hypertension presents to the ED via EMS for sp3 asymptomatic bradycardia. Caregiver found patient to be in a heart rate of 55 and was concerned and therefore activated EMS to bring patient here. Patient has no symptoms at all and denies headache, near syncope, syncope, neck pain, chest pain, shortness of breath, back pain, abdominal pain, palpitations, nausea, vomiting, diarrhea, rash, bleeding, trauma, or any other signs or symptoms on ROS at this time.. Historical: - Allergies: 15:57 ACETAMINOPHEN; iw 15:57 Lisinopril; iw 15:57 Tylenol; iw 15:57 Warfarin; iw - PMHx: 15:57 CHF; Hypertension; Myocardial infarction; iw - PSHx: 15:57 back; cabg (back); iw - Immunization history:: Adult Immunizations not up to date. - Infectious Disease History:: Denies. - Social history:: Smoking status: Patient denies any tobacco usage or history of. ROS: 15:33 Constitutional: Negative for fever, chills, and weight loss, Eyes: Negative for injury, sp3 pain, redness, and discharge, ENT: Negative for injury, pain, and discharge, Neck: Negative for injury, pain, and swelling, Respiratory: Negative for shortness of breath, cough, wheezing, and pleuritic chest pain, Abdomen/GI: Negative for abdominal pain, nausea, vomiting, diarrhea, and constipation, Back: Negative for injury and pain, MS/Extremity: Negative for injury and deformity, Skin: Negative for injury, rash, and discoloration, Neuro: Negative for headache, weakness, numbness, tingling, and seizure, Psych: Negative for depression, anxiety, suicide ideation, homicidal ideation, and hallucinations, Allergy/Immunology: Negative for hives, rash, and allergies, Endocrine: Negative for neck swelling, polydipsia, polyuria, polyphagia, and marked weight changes, 15:33 All other systems are negative, Exam: 15:33 Constitutional: This is a well developed, well nourished patient who is awake, alert, sp3 and in no acute distress. Head/Face: Normocephalic, atraumatic. Eyes: Pupils equal round and reactive to light, extra-ocular motions intact. Lids and lashes normal. Conjunctiva and sclera are non-icteric and not injected. Cornea within normal limits. Periorbital areas with no swelling, redness, or edema. ENT: Nares patent. No nasal discharge, no septal abnormalities noted. External auditory canals are clear. Oropharynx with no redness, swelling, or masses, exudates, or evidence of obstruction, uvula midline. Mucous membranes moist. Neck: Trachea midline, no thyromegaly or masses palpated, and no cervical lymphadenopathy. Supple, full range of motion without nuchal rigidity, or vertebral point tenderness. No Meningismus. Chest/axilla: Normal chest wall appearance and motion. Nontender with no deformity. No lesions are appreciated. Cardiovascular: Regular rate and rhythm with a normal S1 and S2. No gallops, murmurs, or rubs. Normal PMI, no JVD. No pulse deficits. Respiratory: Lungs have equal breath sounds bilaterally, clear to auscultation and percussion. No rales, rhonchi or wheezes noted. No increased work of breathing, no retractions or nasal flaring. Abdomen/GI: Soft, non-tender, with normal bowel sounds. No distension or tympany. No guarding or rebound. No evidence of tenderness throughout. Back: No spinal tenderness. No costovertebral tenderness. Full range of motion. Skin: Warm, dry with normal turgor. Normal color with no rashes, no lesions, and no evidence of cellulitis. MS/ Extremity: Pulses equal, no cyanosis. Neurovascular intact. Full, normal range of motion. Neuro: Awake and alert, GCS 15, oriented to person, place, time, and situation. Cranial nerves II-XII grossly intact. Motor strength 5/5 in all extremities. Sensory grossly intact. Cerebellar exam normal. Normal gait. Psych: Awake, alert, with orientation to person, place and time. Behavior, mood, and affect are within normal limits. 15:52 ECG was reviewed by the Attending Physician. EKG demonstrates sinus bradycardia 57 bpm sp3 with normal intervals QTc 438, right bundle branch block and nonspecific diffuse ST/T changes without evidence of acute ischemia consistent with prior EKGs. Vital Signs: 15:56 BP 178 / 58; Pulse 50; Resp 16; Temp 97.6; Pulse Ox 99% on R/A; iw 17:20 BP 179 / 55 Supine; Pulse 48; Resp 16; Pulse Ox 99% on R/A; iw 17:22 BP 180 / 79; Pulse 60; Resp 16; Pulse Ox 99% on R/A; iw MDM: 15:17 Medical Screening Exam initiated sp3 15:33 Data reviewed: vital signs, nurses notes, old medical records, lab test result(s), EKG, sp3 radiologic studies. ED course: 89-year-old female with asymptomatic bradycardia in the field of 55 now resolved with normal vital signs, normal exam and no symptoms whatsoever. Will obtain EKG and general labs including troponin. If negative we will safely discharge patient home as patient has no complaints at all.. 16:18 ED course: No significant abnormalities on lab work. Patient at baseline. Will safely sp3 discharge home at this time.. 16:47 ED course: Went to discharge patient family is concerned about her heart rate. I tried sp3 explaining them that this is the range it is always in. I have offered to call their starting sheet tank operator and [place] which we are paging and trying to consult. Patient is asymptomatic, ambulatory and in no acute distress. They also requested to check her urine because she gets frequent UTIs. Happy to oblige and UA is pending. Still probable discharge given no concerning findings and consistent EKG with prior.. 17:20 ED course: Discussed with Dr. Garcia went over the entire case including bradycardia sp3 between 48 and 52. Blood pressure remains in the 170 systolic. Patient does not tilt with negative orthostatics. She is ambulating on her own in no acute distress. Patient's starting sheet tank operator states to have her follow-up in the office in 1 week. UA is also negative.. 11/24 15:18 Order name: Basic Metabolic Panel; Complete Time: 16:17 sp3 11/24 15:18 Order name: CBC with Diff; Complete Time: 16:17 sp3 11/24 15:18 Order name: NT PRO-BNP; Complete Time: 16:17 sp3 11/24 15:18 Order name: Troponin HS; Complete Time: 16:17 sp3 11/24 15:18 Order name: Magnesium; Complete Time: 16:17 sp3 11/24 16:31 Order name: UAM; Complete Time: 17:20 sp3 11/24 15:18 Order name: EKG; Complete Time: 15:18 sp3 11/24 15:18 Order name: Cardiac monitoring; Complete Time: 15:57 sp3 11/24 15:18 Order name: EKG - Nurse/Tech; Complete Time: 15:57 sp3 11/24 15:18 Order name: IV Saline Lock; Complete Time: 15:57 sp3 11/24 15:18 Order name: Labs collected and sent; Complete Time: 15:57 sp3 11/24 15:18 Order name: O2 Sat Monitoring; Complete Time: 15:57 sp3 Administered Medications: No medications were administered Disposition Summary: 11/24/24 17:21 Discharge Ordered Notes: Location: Home(11/24/24 17:21) sp3 Condition: Stable(11/24/24 17:21) sp3 Diagnosis - Asymptomatic bradycardia sp3 Followup: sp3 - With: Private Physician - When: Upon discharge from the Emergency Department - Reason: Recheck today's complaints, Continuance of care Discharge Instructions: - Discharge Summary Sheet sp3 - Bradycardia, Adult sp3 Forms: - Medication Reconciliation Form sp3 - Antibiotic Education sp3 - Prescription Opioid Use sp3 - Patient Portal Instructions sp3 - Leadership Thank You Letter sp3 Signatures: Dispatcher [employer] Maria Teresa Olvera RN RN iw Patel, Setul, MD MD sp3 Corrections: (The following items were deleted from the chart) 15:18 15:18 BASIC METABOLIC PANEL+C.LAB.BRZ ordered. EDMS EDMS 15:18 15:18 CBC+H.LAB.BRZ ordered. EDMS EDMS 15:18 15:18 PROBNP+C.LAB.BRZ ordered. EDMS EDMS 15:18 15:18 Troponin High Sensitivity+C.LAB.BRZ ordered. EDMS EDMS 16:31 16:19 Home sp3 sp3 16:31 16:19 Stable sp3 sp3 16:31 16:19 Asymptomatic bradycardia sp3 sp3 16:32 16:32 Urinalysis W/Microscopic+U.LAB.BRZ ordered. EDMS EDMS
--- NOTE | 2024-11-24 16:19 | ER ---
Nurse's Notes [facility] Name: Kassandra Chang Age: 89 yrs Sex: Female : 1935 Arrival Date: 11/24/2024 Time: 15:13 Bed 15 Private MD: Diagnosis: Asymptomatic bradycardia Presentation: 11/24 15:18 Chief complaint: EMS states: toned put for asymptomatic bradycardia , pt has no iw complaints , HR in the 50 's. Coronavirus screen: At this time, the client does not indicate any symptoms associated with coronavirus-19. Ebola Screen: No symptoms or risks identified at this time. Risk Assessment: Do you want to hurt yourself or someone else? Patient reports no desire to harm self or others. 15:18 Method Of Arrival: EMS: [facility] iw 15:18 Acuity: [facility] 3 iw 17:42 Initial Sepsis Screen: Does the patient meet any 2 criteria? No. Patient's initial iw sepsis screen is negative. Does the patient have a suspected source of infection? No. Patient's initial sepsis screen is negative. Onset of symptoms was November 24, 2024. Triage Assessment: 17:00 General: Appears in no apparent distress. Behavior is calm, cooperative. iw Historical: - Allergies: 15:57 ACETAMINOPHEN; iw 15:57 Lisinopril; iw 15:57 Tylenol; iw 15:57 Warfarin; iw - PMHx: 15:57 CHF; Hypertension; Myocardial infarction; iw - PSHx: 15:57 back; cabg (back); iw - Immunization history:: Adult Immunizations not up to date. - Infectious Disease History:: Denies. - Social history:: Smoking status: Patient denies any tobacco usage or history of. Screenin:21 [facility] ED Fall Risk Assessment (Adult) History of falling in the last 3 months, iw including since admission No falls in past 3 months (0 pts) Confusion or Disorientation No (0 pts) Intoxicated or Sedated No (0 pts) Impaired Gait No (0 pts) Mobility Assist Device Used No (0 pt) Altered Elimination No (0 pt) Score/Fall Risk Level 0 - 2 = Low Risk Oriented to surroundings, Maintained a safe environment. Abuse screen: Denies threats or abuse. Nutritional screening: No deficits noted. Tuberculosis screening: No symptoms or risk factors identified. Assessment: 17:20 Reassessment: Patient appears in no apparent distress at this time. Patient and/or iw family updated on plan of care and expected duration. Pain level reassessed. Patient is alert, oriented x 3, equal unlabored respirations, skin warm/dry/pink. 17:41 Reassessment: Patient appears in no apparent distress at this time. Patient and/or iw family updated on plan of care and expected duration. Pain level reassessed. Patient is alert, oriented x 3, equal unlabored respirations, skin warm/dry/pink. Pain: Denies pain. Vital Signs: 15:56 BP 178 / 58; Pulse 50; Resp 16; Temp 97.6; Pulse Ox 99% on R/A; iw 17:20 BP 179 / 55 Supine; Pulse 48; Resp 16; Pulse Ox 99% on R/A; iw 17:22 BP 180 / 79; Pulse 60; Resp 16; Pulse Ox 99% on R/A; iw ED Course: 15:16 Patient arrived in ED. iw 15:17 Maria Teresa Smith, RN is Primary Nurse. iw 15:17 Parker Lynn MD is Attending Physician. sp3 15:18 Triage completed. iw 15:57 Initial lab(s) drawn, by me, sent to lab. Inserted saline lock: 22 gauge in right iw antecubital area, using aseptic technique. Blood collected. Flushed with 10 mL NS. 16:47 called and left message with the answering service for Dr. Flaquito Garcia at [phone]/ they will page the construction site crossing guard and someone should be returning the call. 16:[address] Srivastava the construction site crossing guard for Dr. Garcia with Dr. Lynn for patient consultation. eb 17:41 No provider procedures requiring assistance completed. IV discontinued, intact, iw bleeding controlled, No redness/swelling at site. Pressure dressing applied. 17:41 Arm band placed on. iw Administered Medications: No medications were administered Medication: 17:21 VIS not applicable for this client. iw Outcome: 16:19 Discharge ordered by . sp3 17:21 Discharge ordered by . sp3 17:41 Discharged to home via wheelchair, with family, iw 17:41 Condition: good 17:41 Discharge instructions given to patient, family, Instructed on discharge instructions, follow up and referral plans. Demonstrated understanding of instructions, follow-up care, 17:42 Patient left the ED. iw Signatures: Maria Teresa Smith RN RN Selma Corral Setul, MD MD sp3
[2024-11-24 17:10] LABS: Specific Gravity 1.013 (1.005-1.030); Sqamous Epithelial <5 /HPF (None Seen); Urine Bacteria None Seen /HPF (<20); Urine Bilirubin NEGATIVE (Negative); Urine Blood Negative (Negative); Urine Clarity Clear (Clear); Urine Color Light-Yellow (Yellow); Urine Culture Reflex Order NOT NEEDED; Urine Glucose NEGATIVE (Negative); Urine Ketones NEGATIVE (Negative); Urine Micro Reflex YN NO BILL MICROSCOPIC; Urine Mucus Slight /HPF (None Seen); Urine Nitrite NEGATIVE (Negative); Urine Protein NEGATIVE (Negative); Urine Urobilinogen Normal (Normal); Urine WBC <5 /HPF (<5); Urine WBC Clump Rare /HPF (None Seen); Urine Yeast (Budding) Trace /HPF (None Seen); Urine pH 6.5 (5.0-7.0)
[2024-11-24 18:03] VITALS: TEMP 97.6; O2SAT 99
[2024-11-24 18:08] VITALS: BP 180/79
== END 2024-11-24 17:42 | disposition home or self-care (01) ==
LOC: ER 15:13
DX: R00.1 Bradycardia, unspecified (principal); I11.0 Hypertensive heart disease with heart failure; I50.9 Heart failure, unspecified; I25.2 Old myocardial infarction; Z88.8 Allergy status to other drugs, medicaments and biological substances
CPT/HCPCS: 36415; 80048; 81001; 83735; 83880; 84484; 85025; 99284